=== PATIENT | female | born 1995 | race Two or more races ===

== ENCOUNTER 2020-01-16 09:01 | Outpatient (CLI) | payer SELFPAY | END 2020-01-16 09:02 | disposition home or self-care (01) | LOC: LAB 09:01 | DX: Z02.81 Encounter for paternity testing (principal) ==

== ENCOUNTER 2020-11-23 17:09 | Emergency (ER) | payer OTHER ==
--- OUTSIDE RECORDS SUMMARY | 2020-11-23 17:12 | EXTERNAL MEDICAL SUMMARY RPT | Continuity of Care Document ---
:1995 Demographics Phone Unavailable Preferred Language Hungarian Marital Status Unknown Evangelical Affiliation Unknown Race Unknown Ethnic Group Unknown Author Organization [place] Address [address] [place] [address] Phone Care Team Providers Name Role Phone Miscellaneous, Doctor Unavailable Unavailable Allergies Encounters Medications Problems date description facility [id number] Encounter for test, result [facility] [id number] Amenorrhea, unspecified [facility] [id number] Encounter for test, result [facility] [id number] [facility], [facility] [id number] Acute pharyngitis, unspecified [facility] Procedures date description facility [id number] [facility] Results Vital Signs date measurement value source 20201013 weight_standard 86.18 lb [id number] weight_metric 39.09 kg 20201013 temperature_standard 97.6 F 20201013 temperature_metric 36.44 C 20201013 respiration_rate 16 /min 20201013 height_standard 64 in [id number] height_metric 162.56 cm [id number] heart_rate 103 /min [id number] BP_systolic 146 mm[Hg] 92326176 BP_diastolic 104 mm[Hg] [id number] BMI 32.5 kg/m2
--- OUTSIDE RECORDS SUMMARY | 2020-11-23 17:44 | EXTERNAL MEDICAL SUMMARY RPT | Continuity of Care Document ---
:1995 Demographics Phone Unavailable Preferred Language Polish Marital Status Unknown Baptism Affiliation Unknown Race Unknown Ethnic Group Unknown Author Organization [place] Address [address] [place] [address] Phone Care Team Providers Name Role Phone Miscellaneous, Doctor Unavailable Unavailable Allergies Encounters Medications Problems date description facility [id number] Encounter for test, result [facility] [id number] Amenorrhea, unspecified [facility] [id number] Encounter for test, result [facility] [id number] [facility]hea, unspecified [facility] [id number] Acute pharyngitis, unspecified [facility] Procedures date description facility [id number] [facility] Results Vital Signs date measurement value source 20201013 weight_standard 86.18 lb [id number] weight_metric 39.09 kg 20201013 temperature_standard 97.6 F 20201013 temperature_metric 36.44 C 20201013 respiration_rate 16 /min 20201013 height_standard 64 in [id number] height_metric 162.56 cm [id number] heart_rate 103 /min 17486214 BP_systolic 146 mm[Hg] 94281457 BP_diastolic 104 mm[Hg] [id number] BMI 32.5 kg/m2
[2020-11-23] MEDS ORDERED: LIDOCAINE 1% 2 ML VIAL MC ONE (18:01)
[2020-11-23] MEDS ORDERED: cefTRIAXone 1 GM VIAL IM STA (18:01)
--- NOTE | 2020-11-23 18:05 | ED Physician Documentation ---
History of Present Illness - Stated complaint Stated Complaint: BITE W/ RED LINE GOING UP - Chief complaint Chief Complaint: General - History obtained from History obtained from: Patient - History of Present Illness Timing: Today Pain level max: 0 Pain level now: 0 - Additonal information Additional information: 24-year-old female states that she has multiple bug bites to her arms and legs. She states the one on her left forearm has turned red, swollen and is starting to have a streak going up her left arm. Nothing makes it better or worse. No fevers. No chills. Describes it as itchy. Denies any possibility of . Not breast-feeding. 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 - Present Medications Home Medications: Ambulatory Orders Medication Instructions Recorded Confirmed Desog-E.estradiol/E.estradiol 1 tab ORAL DAILY 11/23/20 11/23/20 [Desogestr-Eth Estrad Eth Estra] Dextroamphetamine/Amphetamine 10 mg ORAL BID 11/23/20 11/23/20 [Adderall 10 mg Tablet] Sulfamethox/Trimeth 800/160 1 each PO BID #14 tablet 11/23/20 [Bactrim Ds 800/160] cephALEXin [Keflex] 500 mg PO Q6H #28 cap 11/23/20 - Allergies Allergies/Adverse Reactions: Allergies Allergy/AdvReac Type Severity Reaction Status Date / Time No Known Drug Allergies Allergy Verified 11/23/20 17:24 - Social History Does the pt smoke?: No Smoking Status: Former smoker Does the pt drink ETOH?: Yes Does the pt have substance abuse?: No - Immunizations Immunizations are current?: Yes PD ED PE NORMAL - Vitals Vital signs reviewed: Yes - General General: Alert and oriented X 3, No acute distress - HEENT HEENT: Moist mucous membranes - Neck Neck: Supple, no meningeal sign - Derm Derm: Warm and dry - Extremities Extremities: Other (L arm - Small erythematous area to the mid forearm, volar aspect, there is a small erythematous streak going up above the elbow to the mid bicep. No crepitus.) - Neuro Neuro: Alert and oriented X 3 - Psych Psych: Normal mood, Normal affect Results - Vitals Vitals: Vital Signs - 24 hr 11/23/20 11/23/20 17:25 18:41 Temperature 37.1 C 37 C Heart Rate 84 76 Respiratory 16 16 Rate Blood Pressure 157/102 H 134/90 H O2 Saturation 99 99 Oxygen O2 Source Room air PD MEDICAL DECISION MAKING - ED course Complexity details: considered differential, d/w patient ED course: Patient with what appears to be cellulitis of the left forearm extending up the left arm. Given Rocephin. Will place on oral antibiotics for home. If she fails to improve in the next 24 hours, she will return for evaluation. No fevers. No sepsis. Patient counseled regarding signs and symptoms for which I believe and urgent re-evaluation would be necessary. Patient with good understanding of and agreement to plan and is comfortable going home at this time This document was made in part using voice recognition software. While efforts are made to proofread this document, sound alike and grammatical errors may occur. Departure - Departure Disposition: 01 Home, Self Care Clinical Impression: Cellulitis Qualifiers: Site of cellulitis: extremity Site of cellulitis of extremity: upper extremity Laterality: left Qualified Code(s): L03.114 - Cellulitis of left upper limb Condition: Good Instructions: ED Infec Skin Cellulitis Follow-Up: LICHA JOSE [Primary Care Provider] - Within 3 Days Prescriptions: Sulfamethox/Trimeth 800/160 [Bactrim Ds 800/160] 1 each PO BID #14 tablet cephALEXin [Keflex] 500 mg PO Q6H #28 cap Comments: Take all antibiotics until gone. Follow-up with your doctor for further care. Return if you worsen. This should start to improve in the next 24 hours, if you develop fevers or the redness is continuing to extend, you need to return to the emergency department. Discharge Date/Time: 11/23/20 18:43
[2020-11-23 18:42] VITALS: BP 134/90
== END 2020-11-23 18:43 | disposition home or self-care (01) ==
LOC: ED 17:09
DX: L03.114 Cellulitis of left upper limb (principal); S50.862A Insect bite (nonvenomous) of left forearm, initial encounter; W57.XXXA Bitten or stung by nonvenomous insect and other nonvenomous arthropods, initial encounter; Z87.891 Personal history of nicotine dependence
CPT/HCPCS: 99283; 99284

== ENCOUNTER 2020-11-26 14:19 | Emergency (ER) | payer OTHER ==
--- OUTSIDE RECORDS SUMMARY | 2020-11-26 14:23 | EXTERNAL MEDICAL SUMMARY RPT | Continuity of Care Document ---
:1995 Demographics Phone Unavailable Preferred Language Nigerian Marital Status Unknown Anglican Affiliation Unknown Race Unknown Ethnic Group Unknown Author Organization [place] Address [address] [place] [address] Phone Care Team Providers Name Role Phone Miscellaneous, Doctor Unavailable Unavailable Allergies Encounters Medications Problems date description facility [id number] Encounter for test, result [facility] [id number] Amenorrhea, unspecified [facility] [id number] Encounter for test, result [facility] [id number] [facility]orrhea, unspecified [facility] [id number] Acute pharyngitis, unspecified [facility] Procedures date description facility [id number] [facility] Results Vital Signs date measurement value source 20201013 weight_standard 86.18 lb [id number] weight_metric 39.09 kg 20201013 temperature_standard 97.6 F 20201013 temperature_metric 36.44 C 20201013 respiration_rate 16 /min 20201013 height_standard 64 in [id number] height_metric 162.56 cm [id number] heart_rate 103 /min 63102053 BP_systolic 146 mm[Hg] 31488627 BP_diastolic 104 mm[Hg] [id number] BMI 32.5 kg/m2
--- OUTSIDE RECORDS SUMMARY | 2020-11-26 14:27 | EXTERNAL MEDICAL SUMMARY RPT | Continuity of Care Document ---
:1995 Demographics Phone Unavailable Preferred Language Estonian Marital Status Unknown Amish Affiliation Unknown Race Unknown Ethnic Group Unknown Author Organization [place] Address [address] [place] [address] Phone Care Team Providers Name Role Phone Miscellaneous, Doctor Unavailable Unavailable Allergies Encounters Medications Problems date description facility [id number] Encounter for test, result [facility] [id number] Amenorrhea, unspecified [facility] [id number] Encounter for test, result [facility] [id number] Amenorrhea, unspecified [facility] [id number] Acute pharyngitis, unspecified [facility] Procedures date description facility [id number] [facility] Results Vital Signs date measurement value source 20201013 weight_standard 86.18 lb [id number] weight_metric 39.09 kg 20201013 temperature_standard 97.6 F 20201013 temperature_metric 36.44 C 20201013 respiration_rate 16 /min 20201013 height_standard 64 in [id number] height_metric 162.56 cm [id number] heart_rate 103 /min 32041527 BP_systolic 146 mm[Hg] 63908313 BP_diastolic 104 mm[Hg] 97178840 BMI 32.5 kg/m2
[2020-11-26] MEDS ORDERED: diphenhydrAMINE 25 MG CAPSULE PO STA (14:55)
[2020-11-26] MEDS ORDERED: DEXAMETHASONE 10 MG/ML VIAL PO STA (14:55)
[2020-11-26] MEDS ORDERED: CHERRY SYRUP 10 ML UDC PO ONE (14:55)
--- NOTE | 2020-11-26 14:56 | ED Physician Documentation ---
History of Present Illness - Stated complaint Stated Complaint: RASH ON BODY - Chief complaint Chief Complaint: General - History obtained from History obtained from: Patient - Additonal information Additional information: 24-year-old woman with allergy to yecenia and dogs presents with rash Not improving with Keflex. Patient states that she had a yecenia exposure on Monday and also was trying on a bench new clothes at a store and then on Monday she developed a rash to her left forearm. She came into the emergency department was prescribed Keflex for cellulitis which she has been taking, but now the rash is itching and spreading down the forearm. She also has pruritic rash to bilateral Flexural surfaces of the lower extremity. Incidentally she was bit by a child in the course of work today but skin did not break. 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 - Present Medications Home Medications: Ambulatory Orders Medication Instructions Recorded Confirmed Desog-E.estradiol/E.estradiol 1 tab ORAL DAILY 11/23/20 11/23/20 [Desogestr-Eth Estrad Eth Estra] Dextroamphetamine/Amphetamine 10 mg ORAL BID 11/23/20 11/23/20 [Adderall 10 mg Tablet] Sulfamethox/Trimeth 800/160 1 each PO BID #14 tablet 11/23/20 [Bactrim Ds 800/160] cephALEXin [Keflex] 500 mg PO Q6H #28 cap 11/23/20 - Allergies Allergies/Adverse Reactions: Allergies Allergy/AdvReac Type Severity Reaction Status Date / Time No Known Drug Allergies Allergy Verified 11/26/20 14:42 - Social History Does the pt smoke?: No Smoking Status: Never smoker Does the pt drink ETOH?: Yes Does the pt have substance abuse?: No - Immunizations Immunizations are current?: Yes - POLST Patient has POLST: No PD ED PE NORMAL - Vitals Vital signs reviewed: Yes - General General: Alert and oriented X 3, No acute distress, Well developed/nourished - HEENT HEENT: Atraumatic, PERRL, EOMI - Derm Derm: Normal color, Warm and dry, Other (blanching erythematous Rash to left forearm and bilateral flexural creases of the lower extremity behind the knee.) - Neuro Neuro: Alert and oriented X 3 - Psych Psych: Normal mood, Normal affect Results - Vitals Vitals: Vital Signs - 24 hr 11/26/20 11/26/20 14:38 15:14 Temperature 36.7 C Heart Rate 90 84 Respiratory 15 12 Rate Blood Pressure 138/94 H 136/82 H O2 Saturation 100 100 Oxygen O2 Source Room air PD MEDICAL DECISION MAKING - ED course ED course: 24-year-old woman presents with persistent rash status post multiple days of Keflex. I advised her to continue her Keflex just in case it is a cellulitis, however this looks like an allergic reaction and given her exposure to mangoes this is consistent with clinical picture. Advised Benadryl as needed and hydrocortisone cream. Strict return precautions given. Departure - Departure Disposition: 01 Home, Self Care Clinical Impression: Allergic reaction Condition: Good Instructions: Rash Skin Self Care Comments: You are seen in the emergency department for a rash that appears to be allergic in origin. Take Benadryl 50 mg as needed every 6 hours for itching. Continue to use hydrocortisone cream. Follow-up with your primary doctor for referral to allergy and immunology. Return to the emergency department if you experience fevers, any new or worsening symptoms or have other concerns. Please complete your antibiotics as prescribed. Discharge Date/Time: 11/26/20 15:15
[2020-11-26 15:15] VITALS: BP 136/82
== END 2020-11-26 15:15 | disposition home or self-care (01) ==
LOC: ED 14:19
DX: T78.40XA Allergy, unspecified, initial encounter (principal)
CPT/HCPCS: 99282; 99284; A9270

== ENCOUNTER 2022-10-17 12:15 | Emergency (ER) | payer OTHER ==
--- NOTE | 2022-10-17 12:28 | ED Physician Documentation ---
PD HPI ABD PAIN - Stated complaint Stated Complaint: ABD PX,NAUSEA - Chief complaint Chief Complaint: Abd Pain - History obtained from History obtained from: Patient, Family (spouse) - History of Present Illness Timing - onset: Today (Onset earlier this morning of initially right lower quadrant to mid abdominal crampy pain that is increased over the last 6 or 7 hours. Predominantly right lower quadrant. Associated with nausea and diarrhea of soft stool several times. No vomiting. No fever.) Timing - duration: Hours Timing - details: Gradual onset, Still present (increasing) Quality: Cramping, Aching, Pain Location: Periumbilical, RLQ Radiation: Lower back. No: Right flank Improved by: Laying still, Position (sitting up) Worsened by: Moving, Position, Palpation. No: Breathing Associated symptoms: Nausea, Diarrhea. No: Fever, Vomiting, Constipation Similar symptoms before: Has not had sx before Recently seen: Clinic (IUD placed 2 months ago with long cramping the first 3 weeks, then just finishing recent menses.) Review of Systems Constitutional: reports: Myalgias. denies: Fever Nose: denies: Rhinorrhea / runny nose, Congestion Throat: denies: Sore throat Respiratory: denies: Cough GI: reports: Abdominal Pain, Nausea, Diarrhea (several soft stools this morning.). 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 - Present Medications Home Medications: Ambulatory Orders Medication Instructions Recorded Confirmed Desog-E.estradiol/E.estradiol 1 tab ORAL DAILY 11/23/20 11/23/20 [Desogestr-Eth Estrad Eth Estra] Dextroamphetamine/Amphetamine 10 mg ORAL BID 11/23/20 11/23/20 [Adderall 10 mg Tablet] Sulfamethox/Trimeth 800/160 1 each PO BID #14 tablet 11/23/20 [Bactrim Ds 800/160] cephALEXin [Keflex] 500 mg PO Q6H #28 cap 11/23/20 HYDROcod/ACETAM 5/325 [[place] 5/325] 1 ea PO Q6H PRN #112 tablet 10/17/22 Naproxen 250 mg PO TID PRN 7 Days #15 tablet 10/17/22 Ondansetron Odt [Zofran] 4 mg TL Q6H PRN #10 tablet 10/17/22 - Allergies Allergies/Adverse Reactions: Allergies Allergy/AdvReac Type Severity Reaction Status Date / Time No Known Drug Allergies Allergy Verified 10/17/22 12:23 - Social History Does the pt smoke?: No Smoking Status: Never smoker Does the pt drink ETOH?: Yes Does the pt have substance abuse?: No - Immunizations Immunizations are current?: Yes - POLST Patient has POLST: No PD ED PE NORMAL - Vitals Vital signs reviewed: Yes - General General: Alert and oriented X 3, Well developed/nourished - Neck Neck: Supple, no meningeal sign, No adenopathy - Cardiac Cardiac: RRR, No murmur - Respiratory Respiratory: Clear bilaterally - Abdomen Abdomen: Normal bowel sounds, Soft, Non distended, No organomegaly, Other (tender RLQ with local guarding and percussion tenderness. No referred tenderness from rest of abd. Pain with right leg lift. ) - Female Female : Deferred - Rectal Rectal: Deferred - Back Back: No CVA TTP - Derm Derm: Normal color, Warm and dry Results - Vitals Vitals: Vital Signs - 24 hr 10/17/22 10/17/22 10/17/22 12:20 13:30 14:00 Temperature 36.0 C L Heart Rate 91 84 77 Respiratory 20 16 16 Rate Blood Pressure 157/110 H 144/100 H 151/113 H O2 Saturation 98 99 100 10/17/22 15:55 Temperature Heart Rate 74 Respiratory 16 Rate Blood Pressure 146/99 H O2 Saturation 100 Oxygen O2 Source Room air - Labs Labs: Laboratory Tests 10/17/22 10/17/22 10/17/22 12:40 13:00 13:00 WBC 5.3 RBC 5.08 Hgb 15.8 Hct 47.2 H MCV 92.9 MCH 31.1 H MCHC 33.5 RDW 12.9 Plt Count 336 MPV 8.5 Neut # (Auto) 4.2 Lymph # (Auto) 0.7 L [place] # (Auto) 0.3 Eos # (Auto) 0.1 Baso # (Auto) 0.0 Absolute Nucleated RBC 0.00 Nucleated RBC % 0.0 Sodium 137 Potassium 3.3 L Chloride 103 Carbon Dioxide 24 Anion Gap 10.0 BUN 10 Creatinine 0.5 Estimated GFR (MDRD) 148 Glucose 112 H Calcium 9.2 Total Bilirubin 0.6 AST 25 ALT 25 Alkaline Phosphatase 76 Total Protein 7.9 Albumin 4.7 Globulin 3.2 Albumin/Globulin Ratio 1.5 Lipase 31 Urine Color YELLOW Urine Clarity CLEAR Urine pH 6.0 Ur Specific [facility] 1.020 Urine Protein NEGATIVE Urine Glucose (UA) 100 H Urine Ketones NEGATIVE Urine Occult Blood SMALL H Urine Nitrite NEGATIVE Urine Bilirubin NEGATIVE Urine Urobilinogen 0.2 (NORMAL) Ur Leukocyte Esterase NEGATIVE Urine RBC 0-5 Urine WBC 0-3 Ur Squamous Epith Cells FEW Squamous Urine Bacteria Few Ur Microscopic Review INDICATED Urine Culture Comments NOT INDICATED Urine HCG, Qual NEGATIVE - Rads (name of study) abd/pelvic CT Relevant Findings:: Prelim report reviewed (appendix not visualized. No secondary finding such as fat stranding nor inflammation. incidental small right ovarian cyst. ), See rad report PD Medical Decision Making - ED course Complexity details: reviewed results (appendix not visualized. No other acute findings. ), re-evaluated patient (She has not had any urinary symptoms. Denies any unusual vaginal bleeding. Recent menstrual period that was normal. Has GI symptoms with right lower quadrant pain and most concerning for acute local colitis or appendicitis. We will get CT scan over ultrasound. Still with AP after first meds.), considered differential (Onset of nausea with some soft stools/mild diarrhea in conjunction with right lower quadrant pain of gradual onset and steady worsening. Symptoms now 6 to 8 hours and increasing.), d/w patient Reviewed Lab Results: normal WBC of 5, less suggestive of acute severe infection. However, does not exclude appendicitis, and she still had focal RLQ tender with guarding on recheck after initial labs/meds. ED course: concern for appendicitis vs viral GE or other cause. Labs were okay with normal WBC. Negative UA for infection. HCG negative. Given IV fluids and toradol/zofran, with persisting abd tenderness. To get CT abdomen shared decision with patient/spouse. Departure - Departure Disposition: 01 Home, Self Care Clinical Impression: Nausea Abdominal pain Qualifiers: Abdominal location: right lower quadrant Qualified Code(s): R10.31 - Right lower quadrant pain Condition: Stable Record reviewed to determine appropriate education?: Yes Instructions: ED Abdominal Pain Female Non-Specific Abdominal Pain, ED Abdominal Pain Appendx Poss Follow-Up: MOLLY DUARTE MD [Primary Care Provider] - Prescriptions: Naproxen 250 mg PO TID PRN 7 Days #15 tablet PRN Reason: Pain 1-4 HYDROcod/ACETAM 5/325 [[place] 5/325] 1 ea PO Q6H PRN #112 tablet PRN Reason: Pain Ondansetron Odt [Zofran] 4 mg TL Q6H PRN #10 tablet PRN Reason: Nausea / Vomiting Comments: Your urine test is without any signs of infection. Your blood test a normal white count and basic electrolytes etc. Your CT scan does not visualize the appendix but there are no signs of inflammation or fluid in the area. This makes the possibility of appendicitis much lower but not excluded. At this point we will treat it as a viral type illness or inflammation of the intestine. As such I would anticipate it to last a day or 2 at most. I would treat with medication for nausea and inflammation and pain. Frequent fluids and soft foods and bland diet for a day or 2. Medications as needed. Follow-up with your primary or return to the ER if not resolved within 1 to 2 days and return sooner if you develop fevers, persistent vomiting or worse pain despite medication, bloody stool, other concerns. I sent your prescriptions to [facility] in [place]. Discharge Date/Time: 10/17/22 15:55
[2022-10-17] MEDS ORDERED: HYDROmorphone 0.5 MG/0.5 ML SYRINGE IVP STA (12:49)
[2022-10-17] MEDS ORDERED: SODIUM CHLORIDE 0.9% 1,000 ML IV STA (12:49)
[2022-10-17] MEDS ORDERED: KETOROLAC 15 MG/ML VIAL IVP STA (12:49)
[2022-10-17] MEDS ORDERED: ONDANSETRON 4 MG/2 ML VIAL IVP STA (12:49)
--- OUTSIDE RECORDS SUMMARY | 2022-10-17 13:09 | EXTERNAL MEDICAL SUMMARY RPT | Continuity of Care Document ---
:1995 Author Organization [facility] Address [address] [place] [address] Phone Care Team Providers Name Role Phone George Mariscal Unavailable Unavailable Allergies No information. Encounters No information. Functional Status No information. Immunizations No information. Medications date description facility 2022-08-12 00:00 Dextroamphetamine-Amphetamine [facility] ospital Problems date description facility 2022-07-25 09:24 Nipple discharge [facility] 2022-07-25 09:24 Excessive and frequent menstruation [facility] regular cycle 2022-07-25 09:24 Family history of malignant neoplasm of [facility] 2022-07-25 17:07 Nipple discharge [facility] 2022-07-25 17:07 Excessive and frequent menstruation [facility] regular cycle 2022-07-25 17:07 Family history of malignant neoplasm of [facility] 2022-08-19 11:33 Encounter for insertion of [facility] contraceptive device 2022-08-19 11:33 Presence of (intrauterine) contraceptiv e device [facility] Procedures date description facility 2022-07-25 00:00 Diagnostic mammography of both [facility] 2022-07-25 00:00 breast [facility] l Results/Labs test date author facility value unit interpret ation Result panel 1 (unknown) (no date) (unknown) [facility] Result panel 2 (unknown) (no date) (unknown) [facility]) Result panel 3 (unknown) (no date) (unknown) [facility]) Result panel 4 (unknown) (no (unknown) (unknown) (no value) (units (unk nown) date) unknown) (unknown) (no (unknown) (unknown) 07/25/22 (units (unkno wn) date) unknown) (unknown) (no (unknown) (unknown) [address] [place] [address] (units (unknown) date) unknown) (unknown) (no (unknown) (unknown) 4900 (units (unkno wn) date) unknown) (unknown) (no (unknown) (unknown) Accession Number: (units (unknown) date) [id number] unknown) (unknown) (no (unknown) (unknown) Age/Sex: 26 / F (units (unknown) date) Date of Service: unknown) (unknown) (no (unknown) (unknown) [place], [place] (units ( unknown) date) [address] unknown) (unknown) (no (unknown) (unknown) CLINICAL: Nipple (units (unknown) date) discharge, right unknown) breast, not bloody. (unknown) (no (unknown) (unknown) Clinical (units (unkno wn) date) evaluation is unknown) recommended. This was discussed with the patient. (unknown) (no (unknown) (unknown) : 1995 (units (unknown) date) Acct:[id number] unknown) (unknown) (no (unknown) (unknown) Electronically (units (unknown) date) Signed By: Tristan millan) Tab Munson (unknown) (no (unknown) (unknown) IMPRESSION: (units (un known) date) NEGATIVE unknown) (unknown) (no (unknown) (unknown) [facility] (units (unknown) date) unknown) (unknown) (no (unknown) (unknown) Loc: [place] (units (unkno wn) date) unknown) (unknown) (no (unknown) (unknown) No etiology or (units (unknown) date) target amenable to unknown) biopsy is found on today's mammogram or (unknown) (no (unknown) (unknown) No prior exams (units (unknown) date) were available for unknown) comparison. (unknown) (no (unknown) (unknown) No significant (units (unknown) date) abnormalities were unknown) seen sonographically in the right breast. (unknown) (no (unknown) (unknown) Ordering (units (unkno wn) date) Provider: unknown) George Mariscal MD (unknown) (no (unknown) (unknown) Patient: (units (unkno wn) date) Darleen Peck MR#: unknown) [id number] (unknown) (no (unknown) (unknown) Please note, with (units (unknown) date) patient's elevated unknown) lifetime risk and family history, (unknown) (no (unknown) (unknown) Procedure: [place] (units ( unknown) date) breast RT limited unknown) (unknown) (no (unknown) (unknown) Real-time (units (unkn own) date) ultrasound of the unknown) right breast was performed. Cazares scale images of (unknown) (no (unknown) (unknown) Signed (units (unkno wn) date) unknown) (unknown) (no (unknown) (unknown) There is no (units (un known) date) abnormality seen unknown) in the right breast to correspond with the (unknown) (no (unknown) (unknown) There is no (units (un known) date) sonographic unknown) evidence of malignancy. (unknown) (no (unknown) (unknown) This exam was (units ( unknown) date) interpreted at unknown) Station ID: [id number]. (unknown) (no (unknown) (unknown) ULTRASOUND OF (units ( unknown) date) RIGHT BREAST: unknown) 07/25/2022 (unknown) (no (unknown) (unknown) Ultrasound (units (unk nown) date) BI-RADS: 1 unknown) Negative (unknown) (no (unknown) (unknown) Ultrasound Report (units (unknown) date) unknown) (unknown) (no (unknown) (unknown) breast MRI is (units ( unknown) date) reasonable. unknown) (unknown) (no (unknown) (unknown) clinical (units (unkno wn) date) unknown) (unknown) (no (unknown) (unknown) concern for (units (un known) date) discharge persists unknown) and no alternative cause is found, further (unknown) (no (unknown) (unknown) discharge from (units (unknown) date) unknown) (unknown) (no (unknown) (unknown) lc/:07/25/2022 (units ( unknown) date) 10:49:58 unknown) (unknown) (no (unknown) (unknown) letter sent: (units (u nknown) date) Clinical unknown) Evaluation (unknown) (no (unknown) (unknown) mammogram and (units ( unknown) date) possibly MRI can unknown) be considered before age 40. In addition, if (unknown) (no (unknown) (unknown) real-time (units (unkn own) date) examination were unknown) reviewed. (unknown) (no (unknown) (unknown) screening (units (unkn own) date) unknown) (unknown) (no (unknown) (unknown) the nipple. (units (un known) date) unknown) (unknown) (no (unknown) (unknown) the (units (unkno wn) date) unknown) (unknown) (no (unknown) (unknown) ultrasound. (units (un known) date) unknown) (unknown) (no (unknown) (unknown) workup with (units (un known) date) unknown) Result panel 5 (unknown) (no (unknown) (unknown) (no value) (units (unk nown) date) unknown) (unknown) (no (unknown) (unknown) 'Lifetime risk to (units (unknown) date) develop breast unknown) cancer' is 20% or higher. (unknown) (no (unknown) (unknown) (category c / (units ( unknown) date) unknown) (unknown) (no (unknown) (unknown) 07/25/22 (units (unkno wn) date) unknown) (unknown) (no (unknown) (unknown) [address] [place] [address] (units (unknown) date) unknown) (unknown) (no (unknown) (unknown) 15% of breast (units ( unknown) date) malignancies will unknown) not be visualized mammographically. In the (unknown) (no (unknown) (unknown) 27.7% and her 10 (units (unknown) date) year risk is 0.9%. unknown) If a patient has an elevated risk, a more (unknown) (no (unknown) (unknown) 4900 (units (unkno wn) date) unknown) (unknown) (no (unknown) (unknown) 51-75% glandular (units (unknown) date) tissue). unknown) (unknown) (no (unknown) (unknown) ACR BI-RADS (units (un known) date) Category 0: unknown) Incomplete [id number] (unknown) (no (unknown) (unknown) Accession Number: (units (unknown) date) [id number] unknown) (unknown) (no (unknown) (unknown) Age/Sex: 26 / F (units (unknown) date) Date of Service: unknown) (unknown) (no (unknown) (unknown) [place], [place] (units ( unknown) date) [id number] unknown) (unknown) (no (unknown) (unknown) Approximately (units ( unknown) date) unknown) (unknown) (no (unknown) (unknown) BILATERAL DIGITAL (units (unknown) date) DIAGNOSTIC unknown) MAMMOGRAM 3D/2D: 07/25/2022 (unknown) (no (unknown) (unknown) Based on (units (unkno wn) date) Tyrer-Cuzick model unknown) (a risk assessment model), the patient's lifetime (unknown) (no (unknown) (unknown) Both breasts are (units (unknown) date) heterogeneously unknown) dense, which may obscure small masses (unknown) (no (unknown) (unknown) CLINICAL: (units (unkn own) date) Baseline exam. unknown) Family history of breast cancer. Right breast (unknown) (no (unknown) (unknown) : 1995 (units (unknown) date) Acct:[id number] unknown) (unknown) (no (unknown) (unknown) Electronically (units (unknown) date) Signed By: Tristan unknown) Tab Munson (unknown) (no (unknown) (unknown) IMPRESSION: (units (un known) date) INCOMPLETE: NEEDS unknown) ADDITIONAL IMAGING EVALUATION (unknown) (no (unknown) (unknown) [facility] (units (unknown) date) unknown) (unknown) (no (unknown) (unknown) Loc: [place] (units (unkno wn) date) unknown) (unknown) (no (unknown) (unknown) Mammography (units (un known) date) Report unknown) (unknown) (no (unknown) (unknown) NOTE: For (units (unkn own) date) mammograms, a unknown) report in lay terms will be sent to the patient. (unknown) (no (unknown) (unknown) No prior exams (units (unknown) date) were available for unknown) comparison. (unknown) (no (unknown) (unknown) No significant (units (unknown) date) masses, unknown) calcifications, or other findings are seen in either (unknown) (no (unknown) (unknown) Ordering (units (unkno wn) date) Provider: unknown) George Mariscal MD (unknown) (no (unknown) (unknown) Patient: (units (unkno wn) date) Darleen Peck MR#: unknown) [id number] (unknown) (no (unknown) (unknown) Procedure: MM (units ( unknown) date) diagnostic mammo unknown) BI (unknown) (no (unknown) (unknown) Signed (units (unkno wn) date) unknown) (unknown) (no (unknown) (unknown) [employer] [place] (units (u nknown) date) Cancer Society, unknown) [employer], and NCCN Guidelines (unknown) (no (unknown) (unknown) There is no (units (un known) date) abnormality seen unknown) in the right breast to correspond with the (unknown) (no (unknown) (unknown) This exam was (units ( unknown) date) interpreted at unknown) Station ID: [id number]. (unknown) (no (unknown) (unknown) a palpable breast (units (unknown) date) mass, a negative unknown) mammogram must not discourage biopsy of a (unknown) (no (unknown) (unknown) advise (units (unkno wn) date) unknown) (unknown) (no (unknown) (unknown) breast. (units (unkno wn) date) unknown) (unknown) (no (unknown) (unknown) clinically (units (unk nown) date) unknown) (unknown) (no (unknown) (unknown) comprehensive (units ( unknown) date) evaluation should unknown) be considered and/or a referral to a genetic (unknown) (no (unknown) (unknown) counselor. (units (unk nown) date) unknown) (unknown) (no (unknown) (unknown) discharge from (units (unknown) date) unknown) (unknown) (no (unknown) (unknown) discharge. (units (unk nown) date) unknown) (unknown) (no (unknown) (unknown) lc/:07/25/2022 (units ( unknown) date) 10:46:29 unknown) (unknown) (no (unknown) (unknown) management of (units ( unknown) date) unknown) (unknown) (no (unknown) (unknown) patients whose (units (unknown) date) unknown) (unknown) (no (unknown) (unknown) risk is (units (unkno wn) date) unknown) (unknown) (no (unknown) (unknown) suspicious (units (unk nown) date) lesion. unknown) (unknown) (no (unknown) (unknown) the consideration (units (unknown) date) of Breast MRI as unknown) an adjunct to screening mammography in (unknown) (no (unknown) (unknown) the nipple, (units (un known) date) however, unknown) ultrasound is recommended. Result panel 6 (unknown) (no date) (unknown) (unknown) 6.7 ng/ml (unkn own) Result panel 7 (unknown) (no date) (unknown) (unknown) 4.72 miu/ml (unkn own) (unknown) (no date) (unknown) (unknown) 4.72 miu/ml (unkn own) (unknown) (no date) (unknown) (unknown) 6.40 miu/ml (unkn own) (unknown) (no date) (unknown) (unknown) 6.40 miu/ml (unkn own) Result panel 8 (unknown) (no (unknown) (unknown) (no value) (units (unk nown) date) unknown) (unknown) (no (unknown) (unknown) 08/19/22 (units (unkno wn) date) unknown) (unknown) (no (unknown) (unknown) 900 (units (unkno wn) date) unknown) (unknown) (no (unknown) (unknown) ADHD (units (unkno wn) date) unknown) (unknown) (no (unknown) (unknown) (units (unkno wn) date) unknown) (unknown) (no (unknown) (unknown) Age/Sex: 26 / F (units (unknown) date) Date of Service: unknown) (unknown) (no (unknown) (unknown) Alcohol abuse (units ( unknown) date) unknown) (unknown) (no (unknown) (unknown) Allergies (units (unkn own) date) unknown) (unknown) (no (unknown) (unknown) [place], [place] (units ( unknown) date) [address] unknown) (unknown) (no (unknown) (unknown) Anaphylaxis (units (un known) date) unknown) (unknown) (no (unknown) (unknown) Anesthesia (units (unk nown) date) unknown) (unknown) (no (unknown) (unknown) Anxiety (units (unkno wn) date) unknown) (unknown) (no (unknown) (unknown) Assessment + (units (u nknown) date) Plan unknown) (unknown) (no (unknown) (unknown) Attending Dr: (units ( unknown) date) George Mariscal unknown) (unknown) (no (unknown) (unknown) Breast cancer (units ( unknown) date) unknown) (unknown) (no (unknown) (unknown) Brother (units (unkno wn) date) Hypertension unknown) (unknown) (no (unknown) (unknown) Cancer (units (unkno wn) date) unknown) (unknown) (no (unknown) (unknown) Chlamydia (units (unkn own) date) unknown) (unknown) (no (unknown) (unknown) Crohn's disease (units (unknown) date) () unknown) (unknown) (no (unknown) (unknown) : 1995 (units (unknown) date) Acct:[id number] unknown) (unknown) (no (unknown) (unknown) Delivery by (units (un known) date) section unknown) (-05/18/20) (unknown) (no (unknown) (unknown) Depression (units (unk nown) date) unknown) (unknown) (no (unknown) (unknown) Dept at (units (unkno wn) date) . unknown) (unknown) (no (unknown) (unknown) Documented By: (units (unknown) date) George Mariscal unknownColleen MARTINEZ 08/19/22 1135 (unknown) (no (unknown) (unknown) Draft (units (unkno wn) date) unknown) (unknown) (no (unknown) (unknown) Family History (units (unknown) date) (Updated 03/15/21 unknown) @ 14:04 by Christiana Magallon) (unknown) (no (unknown) (unknown) Family Practice (units (unknown) date) Office Visit unknown) (unknown) (no (unknown) (unknown) Family/Other (units (u nknown) date) Mental health unknown) problem (unknown) (no (unknown) (unknown) Father Stroke (units ( unknown) date) unknown) (unknown) (no (unknown) (unknown) [facility] ([facility] unknown) (unknown) (no (unknown) (unknown) GI bleeding (units (un known) date) (-2006) unknown) (unknown) (no (unknown) (unknown) Grandfather (units (un known) date) Family unknown) estrangement (unknown) (no (unknown) (unknown) Grandfather (units (un known) date) Stomach unknown) cancer (unknown) (no (unknown) (unknown) Grandmother (units (un known) date) Stroke unknown) (unknown) (no (unknown) (unknown) Grandmother (units (un known) date) Unknown unknown) whether patient has any health problems (unknown) (no (unknown) (unknown) H/O being (units (unkn own) date) hospitalized unknown) () (unknown) (no (unknown) (unknown) H/O wisdom tooth (units (unknown) date) extraction unknown) () (unknown) (no (unknown) (unknown) Heavy menstrual (units (unknown) date) period unknown) (unknown) (no (unknown) (unknown) History of heart (units (unknown) date) disease unknown) (unknown) (no (unknown) (unknown) History of (units (unk nown) date) miscarriage unknown) (unknown) (no (unknown) (unknown) Hyperlipidemia (units (unknown) date) unknown) (unknown) (no (unknown) (unknown) Hypertension (units (u nknown) date) unknown) (unknown) (no (unknown) (unknown) Intake performed (units (unknown) date) by: Jane Hoff unknown) J (unknown) (no (unknown) (unknown) Intake (units (unkno wn) date) unknown) (unknown) (no (unknown) (unknown) Intake- Clincial (units (unknown) date) Staff unknown) (unknown) (no (unknown) (unknown) Last Menstural (units (unknown) date) Cycle + Details unknown) (unknown) (no (unknown) (unknown) Loc: [facility] (units (unkno wn) date) unknown) (unknown) (no (unknown) (unknown) Medical History (units (unknown) date) (Updated 07/01/22 unknown) @ 17:11 by George Mariscal MD) (unknown) (no (unknown) (unknown) Mental health (units ( unknown) date) problem unknown) (unknown) (no (unknown) (unknown) Miscarriage (units (un known) date) unknown) (unknown) (no (unknown) (unknown) 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 (unknown) (no (unknown) (unknown) Mother Cancer (units ( unknown) date) unknown) (unknown) (no (unknown) (unknown) Orders: (units (unkno wn) date) unknown) (unknown) (no (unknown) (unknown) Other Menstrual (units (unknown) date) Period: Other unknown) (unknown) (no (unknown) (unknown) PFSH (units (unkno wn) date) unknown) (unknown) (no (unknown) (unknown) Patient: (units (unkno wn) date) Darleen Peck MR#: unknown) [id number] (unknown) (no (unknown) (unknown) Reason For Visit (units (unknown) date) unknown) (unknown) (no (unknown) (unknown) Referral (units (unkno wn) date) Community unknown) Resource Z30.430 - Encounter for insertion of intrauterine (unknown) (no (unknown) (unknown) Referrals (units (unkn own) date) unknown) (unknown) (no (unknown) (unknown) S/P dilation and (units (unknown) date) curettage (-2015) unknown) (unknown) (no (unknown) (unknown) Signed By: (units (unk nown) date) unknown) (unknown) (no (unknown) (unknown) Smoking Status: (units (unknown) date) Former smoker unknown) (unknown) (no (unknown) (unknown) Social History (units (unknown) date) unknown) (unknown) (no (unknown) (unknown) Surgical History (units (unknown) date) (Updated 03/15/21 unknown) @ 13:52 by Christiana Magallon) (unknown) (no (unknown) (unknown) This note may (units ( unknown) date) have been all or unknown) partially generated using voice recognition (unknown) (no (unknown) (unknown) Tobacco + (units (unkn own) date) Substance Use unknown) (unknown) (no (unknown) (unknown) Tobacco Status (units (unknown) date) unknown) (unknown) (no (unknown) (unknown) Tobacco: How (units (u nknown) date) many years used: unknown) 1 (unknown) (no (unknown) (unknown) Unknown whether (units (unknown) date) patient has any unknown) health problems (unknown) (no (unknown) (unknown) Visit Reasons: (units (unknown) date) IUD/ Yaritza unknown) InsertionTRICAR E (unknown) (no (unknown) (unknown) alcohol intake: (units (unknown) date) current (2-3 unknown) drinks/ 2 wks ) (unknown) (no (unknown) (unknown) contraceptive (units ( unknown) date) device, Z97.5 - unknown) Presence of (intrauterine) contraceptive device (unknown) (no (unknown) (unknown) current (units (unkno wn) date) occupational unknown) exposures/hazards : No (unknown) (no (unknown) (unknown) education level: (units (unknown) date) college unknown) (unknown) (no (unknown) (unknown) have occurred. (units (unknown) date) If there are any unknown) questions, please contact the Medical Records (unknown) (no (unknown) (unknown) household (units (unkn own) date) members: unknown) significant other (unknown) (no (unknown) (unknown) yecenia Allergy (units ( unknown) date) (Severe, Verified unknown) 03/12/21 10:13) (unknown) (no (unknown) (unknown) marital status: (units (unknown) date) unmarried,living unknown) together (unknown) (no (unknown) (unknown) may occur. (units (unk nown) date) Occasional unknown) wrong-word or 'sound-alike' substitutions may have (unknown) (no (unknown) (unknown) occupational (units (u nknown) date) status: unknown) unemployed (unknown) (no (unknown) (unknown) occurred due to (units (unknown) date) the inherent unknown) limitations of voice recognition software. Please (unknown) (no (unknown) (unknown) pets and (units (unkno wn) date) animals: Yes unknown) (Dog) (unknown) (no (unknown) (unknown) read the note (units ( unknown) date) carefully and unknown) recognize, using context, where these substitutions (unknown) (no (unknown) (unknown) second hand (units (un known) date) exposure: No unknown) (unknown) (no (unknown) (unknown) software. (units (unkn own) date) Although every unknown) effort is made to edit content, district sales representative errors (unknown) (no (unknown) (unknown) special eddie (units ( unknown) date) needs: No unknown) (unknown) (no (unknown) (unknown) substance use (units ( unknown) date) type: does not unknown) use Result panel 9 (unknown) (no (unknown) (unknown) (no value) (units (unk nown) date) unknown) (unknown) (no (unknown) (unknown) 08/19/22 (units (unkno wn) date) unknown) (unknown) (no (unknown) (unknown) 11:37 (units (unkno wn) date) unknown) (unknown) (no (unknown) (unknown) 3RF (units (unkno wn) date) unknown) (unknown) (no (unknown) (unknown) 900 (units (unkno wn) date) unknown) (unknown) (no (unknown) (unknown) ADHD (units (unkno wn) date) unknown) (unknown) (no (unknown) (unknown) (units (unkno wn) date) unknown) (unknown) (no (unknown) (unknown) Age/Sex: 26 / F (units (unknown) date) Date of Service: unknown) (unknown) (no (unknown) (unknown) Alcohol abuse (units ( unknown) date) unknown) (unknown) (no (unknown) (unknown) Allergies (units (unkn own) date) unknown) (unknown) (no (unknown) (unknown) [place], [place] (units ( unknown) date) [address] unknown) (unknown) (no (unknown) (unknown) Anaphylaxis (units (un known) date) unknown) (unknown) (no (unknown) (unknown) Anesthesia (units (unk nown) date) unknown) (unknown) (no (unknown) (unknown) Anxiety (units (unkno wn) date) unknown) (unknown) (no (unknown) (unknown) Assessment + (units (u nknown) date) Plan unknown) (unknown) (no (unknown) (unknown) Attending Dr: (units ( unknown) date) George Mariscal unknown) (unknown) (no (unknown) (unknown) BP 110/74 (units (unkn own) date) unknown) (unknown) (no (unknown) (unknown) Breast cancer (units ( unknown) date) unknown) (unknown) (no (unknown) (unknown) Brother (units (unkno wn) date) Hypertension unknown) (unknown) (no (unknown) (unknown) Cancer (units (unkno wn) date) unknown) (unknown) (no (unknown) (unknown) Chlamydia (units (unkn own) date) unknown) (unknown) (no (unknown) (unknown) Crohn's disease (units (unknown) date) () unknown) (unknown) (no (unknown) (unknown) : 1995 (units (unknown) date) Acct:[id number] unknown) (unknown) (no (unknown) (unknown) Delivery by (units (un known) date) section unknown) (-05/18/20) (unknown) (no (unknown) (unknown) Depression (units (unk nown) date) unknown) (unknown) (no (unknown) (unknown) Dept at (units (unkno wn) date) . unknown) (unknown) (no (unknown) (unknown) Discontinued (units (u nknown) date) Reason: unknown) Provider's Order 15 mg PO BID 60 tabs 0RF (unknown) (no (unknown) (unknown) Discontinued (units (u nknown) date) Reason: unknown) Provider's Order 7.5 mg PO BID 120 tabs 0RF (unknown) (no (unknown) (unknown) Discontinued (units (u nknown) date) Reason: unknown) Provider's Order TAKE 1 TABLET BY MOUTH DAILY 90 tabs (unknown) (no (unknown) (unknown) Discontinued (units (u nknown) date) unknown) (unknown) (no (unknown) (unknown) Documented By: (units (unknown) date) George Mariscal unknownColleen MARTINZE 08/19/22 1135 (unknown) (no (unknown) (unknown) Draft (units (unkno wn) date) unknown) (unknown) (no (unknown) (unknown) Family History (units (unknown) date) (Updated 03/15/21 unknown) @ 14:04 by Christiana Magallon) (unknown) (no (unknown) (unknown) Family Practice (units (unknown) date) Office Visit unknown) (unknown) (no (unknown) (unknown) Family/Other (units (u nknown) date) Mental health unknown) problem (unknown) (no (unknown) (unknown) Father Stroke (units ( unknown) date) unknown) (unknown) (no (unknown) (unknown) [facility]units ([facility] date) [facility] unknown) (unknown) (no (unknown) (unknown) GI bleeding (units (un known) date) (-2006) unknown) (unknown) (no (unknown) (unknown) Grandfather (units (un known) date) Family unknown) estrangement (unknown) (no (unknown) (unknown) Grandfather (units (un known) date) Stomach unknown) cancer (unknown) (no (unknown) (unknown) Grandmother (units (un known) date) Stroke unknown) (unknown) (no (unknown) (unknown) Grandmother (units (un known) date) Unknown unknown) whether patient has any health problems (unknown) (no (unknown) (unknown) H/O being (units (unkn own) date) hospitalized unknown) () (unknown) (no (unknown) (unknown) H/O wisdom tooth (units (unknown) date) extraction unknown) () (unknown) (no (unknown) (unknown) Heavy menstrual (units (unknown) date) period unknown) (unknown) (no (unknown) (unknown) History of heart (units (unknown) date) disease unknown) (unknown) (no (unknown) (unknown) History of (units (unk nown) date) miscarriage unknown) (unknown) (no (unknown) (unknown) Hyperlipidemia (units (unknown) date) unknown) (unknown) (no (unknown) (unknown) Hypertension (units (u nknown) date) unknown) (unknown) (no (unknown) (unknown) Intake performed (units (unknown) date) by: Jane Hoff unknown) J (unknown) (no (unknown) (unknown) Intake (units (unkno wn) date) unknown) (unknown) (no (unknown) (unknown) Intake- Clincial (units (unknown) date) Staff unknown) (unknown) (no (unknown) (unknown) Last Menstural (units (unknown) date) Cycle + Details unknown) (unknown) (no (unknown) (unknown) Loc: [facility] (units (unkno wn) date) unknown) (unknown) (no (unknown) (unknown) Medical History (units (unknown) date) (Updated 07/01/22 unknown) @ 17:11 by George Mariscal MD) (unknown) (no (unknown) (unknown) Medications: (units (u nknown) date) unknown) (unknown) (no (unknown) (unknown) Mental health (units ( unknown) date) problem unknown) (unknown) (no (unknown) (unknown) Miscarriage (units (un known) date) unknown) (unknown) (no (unknown) (unknown) 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 (unknown) (no (unknown) (unknown) Mother Cancer (units ( unknown) date) unknown) (unknown) (no (unknown) (unknown) New (units (unkno wn) date) unknown) (unknown) (no (unknown) (unknown) Orders: (units (unkno wn) date) unknown) (unknown) (no (unknown) (unknown) Other Menstrual (units (unknown) date) Period: Other unknown) (unknown) (no (unknown) (unknown) PFSH (units (unkno wn) date) unknown) (unknown) (no (unknown) (unknown) Patient: (units (unkno wn) date) Darleen Peck MR#: unknown) [id number] (unknown) (no (unknown) (unknown) Pulse 74 (units (unkno wn) date) unknown) (unknown) (no (unknown) (unknown) Pulse Oximetry (units (unknown) date) (%) 99 unknown) (unknown) (no (unknown) (unknown) Reason For Visit (units (unknown) date) unknown) (unknown) (no (unknown) (unknown) Referral (units (unkno wn) date) Community unknown) Resource Z30.430 - Encounter for insertion of intrauterine (unknown) (no (unknown) (unknown) Referrals (units (unkn own) date) unknown) (unknown) (no (unknown) (unknown) S/P dilation and (units (unknown) date) curettage (-2016) unknown) (unknown) (no (unknown) (unknown) Signed By: (units (unk nown) date) unknown) (unknown) (no (unknown) (unknown) Smoking Status: (units (unknown) date) Former smoker unknown) (unknown) (no (unknown) (unknown) Social History (units (unknown) date) unknown) (unknown) (no (unknown) (unknown) Surgical History (units (unknown) date) (Updated 03/15/21 unknown) @ 13:52 by Christiana Magallon) (unknown) (no (unknown) (unknown) This note may (units ( unknown) date) have been all or unknown) partially generated using voice recognition (unknown) (no (unknown) (unknown) Tobacco + (units (unkn own) date) Substance Use unknown) (unknown) (no (unknown) (unknown) Tobacco Status (units (unknown) date) unknown) (unknown) (no (unknown) (unknown) Tobacco: How (units (u nknown) date) many years used: unknown) 1 (unknown) (no (unknown) (unknown) Unknown whether (units (unknown) date) patient has any unknown) health problems (unknown) (no (unknown) (unknown) Visit Reasons: (units (unknown) date) IUD/ Yaritza unknown) InsertionTRICAR E (unknown) (no (unknown) (unknown) Vitals (units (unkno wn) date) unknown) (unknown) (no (unknown) (unknown) Weight 216 lb (units ( unknown) date) unknown) (unknown) (no (unknown) (unknown) administer doses (units (unknown) date) at least 4-6 unknown) hours apart 20 mg PO BID 60 tabs 0RF (unknown) (no (unknown) (unknown) administer doses (units (unknown) date) at least 4-6 unknown) hours apart (unknown) (no (unknown) (unknown) alcohol intake: (units (unknown) date) current (2-3 unknown) drinks/ 2 wks ) (unknown) (no (unknown) (unknown) buspirone 15 mg (units (unknown) date) PO BID 180 tabs unknown) 0RF (unknown) (no (unknown) (unknown) buspirone (units (unkn own) date) unknown) (unknown) (no (unknown) (unknown) contraceptive (units ( unknown) date) device, Z97.5 - unknown) Presence of (intrauterine) contraceptive device (unknown) (no (unknown) (unknown) current (units (unkno wn) date) occupational unknown) exposures/hazards : No (unknown) (no (unknown) (unknown) dextroamphetamin (units (unknown) date) e-amphetamine 15 unknown) mg (Adderall) (unknown) (no (unknown) (unknown) dextroamphetamin (units (unknown) date) e-amphetamine 20 unknown) mg (Adderall) (unknown) (no (unknown) (unknown) education level: (units (unknown) date) college unknown) (unknown) (no (unknown) (unknown) escitalopram (units (u nknown) date) oxalate (Lexapro) unknown) 20 mg PO DAILY 90 tabs 0RF (unknown) (no (unknown) (unknown) escitalopram (units (u nknown) date) oxalate unknown) (unknown) (no (unknown) (unknown) have occurred. (units (unknown) date) If there are any unknown) questions, please contact the Medical Records (unknown) (no (unknown) (unknown) household (units (unkn own) date) members: unknown) significant other (unknown) (no (unknown) (unknown) yecenia Allergy (units ( unknown) date) (Severe, Verified unknown) 03/12/21 10:13) (unknown) (no (unknown) (unknown) marital status: (units (unknown) date) unmarried,living unknown) together (unknown) (no (unknown) (unknown) may occur. (units (unk nown) date) Occasional unknown) wrong-word or 'sound-alike' substitutions may have (unknown) (no (unknown) (unknown) occupational (units (u nknown) date) status: unknown) unemployed (unknown) (no (unknown) (unknown) occurred due to (units (unknown) date) the inherent unknown) limitations of voice recognition software. Please (unknown) (no (unknown) (unknown) pets and (units (unkno wn) date) animals: Yes unknown) (Dog) (unknown) (no (unknown) (unknown) read the note (units ( unknown) date) carefully and unknown) recognize, using context, where these substitutions (unknown) (no (unknown) (unknown) second hand (units (un known) date) exposure: No unknown) (unknown) (no (unknown) (unknown) software. 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: (unknown) (no (unknown) (unknown) (2) Breakthrough (units (unknown) date) bleeding on unknown) control pills: (unknown) (no (unknown) (unknown) (3) ADHD: (units (unkn own) date) unknown) (unknown) (no (unknown) (unknown) (4) Encounter (units ( unknown) date) for intrauterine unknown) device placement: (unknown) (no (unknown) (unknown) 08/19/22 1408 (units ( unknown) date) unknown) (unknown) (no (unknown) (unknown) 08/19/22 (units (unkno wn) date) unknown) (unknown) (no (unknown) (unknown) 11:37 (units (unkno wn) date) unknown) (unknown) (no (unknown) (unknown) 15mg BID for (units (u nknown) date) ADHD but thinks unknown) that it may not be working as well. It has been (unknown) (no (unknown) (unknown) 3RF (units (unkno wn) date) unknown) (unknown) (no (unknown) (unknown) 900 (units (unkno wn) date) unknown) (unknown) (no (unknown) (unknown) ADHD (units (unkno wn) date) unknown) (unknown) (no (unknown) (unknown) (units (unkno wn) date) unknown) (unknown) (no (unknown) (unknown) Adderall. Will (units (unknown) date) see how she does unknown) with these adjustments. We also did place (unknown) (no (unknown) (unknown) Age/Sex: 26 / F (units (unknown) date) Date of Service: unknown) (unknown) (no (unknown) (unknown) Darleen is a 26y F (units ( unknown) date) here to follow-up unknown) on ADHD and anxiety and IUD placement. Patient (unknown) (no (unknown) (unknown) Alcohol abuse (units ( unknown) date) unknown) (unknown) (no (unknown) (unknown) Allergies (units (unkn own) date) unknown) (unknown) (no (unknown) (unknown) [place] (units ( unknown) date) [id number] unknown) (unknown) (no (unknown) (unknown) Anaphylaxis (units (un known) date) unknown) (unknown) (no (unknown) (unknown) Anesthesia (units (unk nown) date) unknown) (unknown) (no (unknown) (unknown) Anxiety (units (unkno wn) date) unknown) (unknown) (no (unknown) (unknown) Assessment + (units (u nknown) date) Plan unknown) (unknown) (no (unknown) (unknown) Attending Dr: (units ( unknown) date) George Mariscal unknown) (unknown) (no (unknown) (unknown) Attention (units (unkn own) date) deficit-hyperacti unknown) vity disorder type: unspecified Qualified (unknown) (no (unknown) (unknown) BP 110/74 (units (unkn own) date) unknown) (unknown) (no (unknown) (unknown) Billing- IUD (units (u nknown) date) Insertion: unknown) Insertion of IUD- [id number] (unknown) (no (unknown) (unknown) Breast cancer (units ( unknown) date) unknown) (unknown) (no (unknown) (unknown) Brother (units (unkno wn) date) Hypertension unknown) (unknown) (no (unknown) (unknown) Cancer (units (unkno wn) date) unknown) (unknown) (no (unknown) (unknown) Cervix cleaned (units (unknown) date) with Betadine: unknown) Yes (with chlorhexadine) (unknown) (no (unknown) (unknown) Chaperoned by (units ( unknown) date) Marissa Hoff LPN unknown) (unknown) (no (unknown) (unknown) Chief Complaint (units (unknown) date) unknown) (unknown) (no (unknown) (unknown) Chief Complaint: (units (unknown) date) Medication unknown) follow-up and IUD placement (unknown) (no (unknown) (unknown) Chlamydia (units (unkn own) date) unknown) (unknown) (no (unknown) (unknown) Code(s): F90.9 - (units (unknown) date) Attention-deficit unknown) hyperactivity disorder, unspecified type (unknown) (no (unknown) (unknown) Consent Form (units (u nknown) date) Signed: Yes unknown) (unknown) (no (unknown) (unknown) Crohn's disease (units (unknown) date) () unknown) (unknown) (no (unknown) (unknown) Culture for (units (un known) date) GC/CT obtained: unknown) No (unknown) (no (unknown) (unknown) : 1995 (units (unknown) date) Acct:[id number] unknown) (unknown) (no (unknown) (unknown) Delivery by (units (un known) date) section unknown) (-05/18/20) (unknown) (no (unknown) (unknown) Depression (units (unk nown) date) unknown) (unknown) (no (unknown) (unknown) Dept at (units (unkno wn) date) . unknown) (unknown) (no (unknown) (unknown) Details: (units (unkno wn) date) unknown) (unknown) (no (unknown) (unknown) Dilation Cervix: (units (unknown) date) No unknown) (unknown) (no (unknown) (unknown) Discontinued (units (u nknown) date) Reason: unknown) Provider's Order 15 mg PO BID 60 tabs 0RF (unknown) (no (unknown) (unknown) Discontinued (units (u nknown) date) Reason: unknown) Provider's Order 7.5 mg PO BID 120 tabs 0RF (unknown) (no (unknown) (unknown) Discontinued (units (u nknown) date) Reason: unknown) Provider's Order TAKE 1 TABLET BY MOUTH DAILY 90 tabs (unknown) (no (unknown) (unknown) Discontinued (units (u nknown) date) unknown) (unknown) (no (unknown) (unknown) Documented By: (units (unknown) date) George Mariscal unknown) 08/19/22 1135 (unknown) (no (unknown) (unknown) Exam Narrative (units (unknown) date) unknown) (unknown) (no (unknown) (unknown) Exam Narrative: (units (unknown) date) unknown) (unknown) (no (unknown) (unknown) Exam (units (unkno wn) date) unknown) (unknown) (no (unknown) (unknown) Explained (units (unkn own) date) Risks/Benefits/Al unknown) ternatives: Yes (unknown) (no (unknown) (unknown) Family History (units (unknown) date) (Updated 03/15/21 unknown) @ 14:04 by Christiana Magallon) (unknown) (no (unknown) (unknown) Family Practice (units (unknown) date) Office Visit unknown) (unknown) (no (unknown) (unknown) Family/Other (units (u nknown) date) Mental health unknown) problem (unknown) (no (unknown) (unknown) Father Stroke (units ( unknown) date) unknown) (unknown) (no (unknown) (unknown) [facility]) (unknown) (no (unknown) (unknown) GI bleeding (units (un known) date) () unknown) (unknown) (no (unknown) (unknown) : (units (unkno wn) date) unknown) (unknown) (no (unknown) (unknown) Grandfather (units (un known) date) Family unknown) estrangement (unknown) (no (unknown) (unknown) Grandfather (units (un known) date) Stomach unknown) cancer (unknown) (no (unknown) (unknown) Grandmother (units (un known) date) Stroke unknown) (unknown) (no (unknown) (unknown) Grandmother (units (un known) date) Unknown unknown) whether patient has any health problems (unknown) (no (unknown) (unknown) H/O being (units (unkn own) date) hospitalized unknown) (-2010) (unknown) (no (unknown) (unknown) H/O wisdom tooth (units (unknown) date) extraction unknown) (-2014) (unknown) (no (unknown) (unknown) HPI (units (unkno wn) date) unknown) (unknown) (no (unknown) (unknown) Heavy menstrual (units (unknown) date) period unknown) (unknown) (no (unknown) (unknown) History of heart (units (unknown) date) disease unknown) (unknown) (no (unknown) (unknown) History of (units (unk nown) date) miscarriage unknown) (unknown) (no (unknown) (unknown) Hyperlipidemia (units (unknown) date) unknown) (unknown) (no (unknown) (unknown) Hypertension (units (u nknown) date) unknown) (unknown) (no (unknown) (unknown) IUD Insert: Yes (units (unknown) date) unknown) (unknown) (no (unknown) (unknown) IUD Type: Mirena (units (unknown) date) unknown) (unknown) (no (unknown) (unknown) IUD- Insertion (units (unknown) date) unknown) (unknown) (no (unknown) (unknown) Ibuprofen and (units ( unknown) date) Call if heavy unknown) bleeding (unknown) (no (unknown) (unknown) Intake performed (units (unknown) date) by: Jane Hoff unknown) Alo (unknown) (no (unknown) (unknown) Intake (units (unkno wn) date) unknown) (unknown) (no (unknown) (unknown) Intake- Clincial (units (unknown) date) Staff unknown) (unknown) (no (unknown) (unknown) Last Menstural (units (unknown) date) Cycle + Details unknown) (unknown) (no (unknown) (unknown) Loc: [facility] (units (unkno wn) date) unknown) (unknown) (no (unknown) (unknown) Medical History (units (unknown) date) (Updated 07/01/22 unknown) @ 17:11 by George Mariscal MD) (unknown) (no (unknown) (unknown) Medications: (units (u nknown) date) unknown) (unknown) (no (unknown) (unknown) Mental health (units ( unknown) date) problem unknown) (unknown) (no (unknown) (unknown) Mirena today. (units ( unknown) date) She tolerated unknown) this well. (unknown) (no (unknown) (unknown) Miscarriage (units (un known) date) unknown) (unknown) (no (unknown) (unknown) 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 (unknown) (no (unknown) (unknown) Mother Cancer (units ( unknown) date) unknown) (unknown) (no (unknown) (unknown) New (units (unkno wn) date) unknown) (unknown) (no (unknown) (unknown) No concerning (units ( unknown) date) appearing tissue. unknown) (unknown) (no (unknown) (unknown) No external (units (un known) date) labial lesions. unknown) minimal amount of clear discharge from cervix. (unknown) (no (unknown) (unknown) Office Procedure (units (unknown) date) unknown) (unknown) (no (unknown) (unknown) Office (units (unkno wn) date) Procedures unknown) (unknown) (no (unknown) (unknown) Orders: (units (unkno wn) date) unknown) (unknown) (no (unknown) (unknown) Other Menstrual (units (unknown) date) Period: Other unknown) (unknown) (no (unknown) (unknown) PFSH (units (unkno wn) date) unknown) (unknown) (no (unknown) (unknown) Paracervical (units (u nknown) date) Block: No unknown) (unknown) (no (unknown) (unknown) Patient (units (unkno wn) date) Tolerated unknown) Procedure: Well (unknown) (no (unknown) (unknown) Patient: (units (unkno wn) date) CarlashanaheavenDarleen MR#: unknown) [id number] (unknown) (no (unknown) (unknown) Plan (units (unkno wn) date) unknown) (unknown) (no (unknown) (unknown) Post-Treatment (units (unknown) date) Care: Call with unknown) fever, chills or abd pain not taken care of with (unknown) (no (unknown) (unknown) Test (units (unknown) date) Performed: Yes unknown) (unknown) (no (unknown) (unknown) Pulse 74 (units (unkno wn) date) unknown) (unknown) (no (unknown) (unknown) Pulse Oximetry (units (unknown) date) (%) 99 unknown) (unknown) (no (unknown) (unknown) Qualifiers: (units (un known) date) unknown) (unknown) (no (unknown) (unknown) Reason For Visit (units (unknown) date) unknown) (unknown) (no (unknown) (unknown) Referral (units (unkno wn) date) Community unknown) Resource Z30.430 - Encounter for insertion of intrauterine (unknown) (no (unknown) (unknown) Referrals (units (unkn own) date) unknown) (unknown) (no (unknown) (unknown) S/P dilation and (units (unknown) date) curettage (-2015) unknown) (unknown) (no (unknown) (unknown) She has been (units (u nknown) date) feeling more unknown) anxious and depressed. She has not improve (unknown) (no (unknown) (unknown) Signed By: (units (unk nown) date) <Electronically unknown) signed by George Mariscal MD> (unknown) (no (unknown) (unknown) Signed (units (unkno wn) date) unknown) (unknown) (no (unknown) (unknown) Smoking Status: (units (unknown) date) Former smoker unknown) (unknown) (no (unknown) (unknown) Social History (units (unknown) date) unknown) (unknown) (no (unknown) (unknown) [place]cul[place] placed: (units (unknown) date) Yes unknown) (unknown) (no (unknown) (unknown) Status: Acute (units ( unknown) date) unknown) (unknown) (no (unknown) (unknown) Status: Chronic (units (unknown) date) unknown) (unknown) (no (unknown) (unknown) Strings Cut (units (un known) date) Length (cm): 2 unknown) (unknown) (no (unknown) (unknown) Surgical History (units (unknown) date) (Updated 03/15/21 unknown) @ 13:52 by Christiana Magallon) (unknown) (no (unknown) (unknown) Tenaculum (units (unkn own) date) placed: No unknown) (unknown) (no (unknown) (unknown) This note may (units ( unknown) date) have been all or unknown) partially generated using voice recognition (unknown) (no (unknown) (unknown) Tobacco + (units (unkn own) date) Substance Use unknown) (unknown) (no (unknown) (unknown) Tobacco Status (units (unknown) date) unknown) (unknown) (no (unknown) (unknown) Tobacco: How (units (u nknown) date) many years used: unknown) 1 (unknown) (no (unknown) (unknown) Unknown whether (units (unknown) date) patient has any unknown) health problems (unknown) (no (unknown) (unknown) Visit Reasons: (units (unknown) date) IUD/ Yaritza unknown) InsertionTRICAR E (unknown) (no (unknown) (unknown) Vitals (units (unkno wn) date) unknown) (unknown) (no (unknown) (unknown) Weight 216 lb (units ( unknown) date) unknown) (unknown) (no (unknown) (unknown) Will increase (units ( unknown) date) Lexapro to 20 mg unknown) daily as well as increasing BuSpar and (unknown) (no (unknown) (unknown) administer doses (units (unknown) date) at least 4-6 unknown) hours apart 20 mg PO BID 60 tabs 0RF (unknown) (no (unknown) (unknown) administer doses (units (unknown) date) at least 4-6 unknown) hours apart (unknown) (no (unknown) (unknown) alcohol intake: (units (unknown) date) current (2-3 unknown) drinks/ 2 wks ) (unknown) (no (unknown) (unknown) buspirone 15 mg (units (unknown) date) PO BID 180 tabs unknown) 0RF (unknown) (no (unknown) (unknown) buspirone (units (unkn own) date) unknown) (unknown) (no (unknown) (unknown) contraceptive (units ( unknown) date) device, Z97.5 - unknown) Presence of (intrauterine) contraceptive device (unknown) (no (unknown) (unknown) current (units (unkno wn) date) occupational unknown) exposures/hazards : No (unknown) (no (unknown) (unknown) dextroamphetamin (units (unknown) date) e-amphetamine 15 unknown) mg (Adderall) (unknown) (no (unknown) (unknown) dextroamphetamin (units (unknown) date) e-amphetamine 20 unknown) mg (Adderall) (unknown) (no (unknown) (unknown) difficult for (units ( unknown) date) her to remember unknown) to take her OCPs as well, which is why she is (unknown) (no (unknown) (unknown) education level: (units (unknown) date) college unknown) (unknown) (no (unknown) (unknown) escitalopram (units (u nknown) date) oxalate (Lexapro) unknown) 20 mg PO DAILY 90 tabs 0RF (unknown) (no (unknown) (unknown) escitalopram (units (u nknown) date) oxalate unknown) (unknown) (no (unknown) (unknown) have occurred. (units (unknown) date) If there are any unknown) questions, please contact the Medical Records (unknown) (no (unknown) (unknown) hoping for IUD (units (unknown) date) placement. unknown) (unknown) (no (unknown) (unknown) household (units (unkn own) date) members: unknown) significant other (unknown) (no (unknown) (unknown) yecenia Allergy (units ( unknown) date) (Severe, Verified unknown) 03/12/21 10:13) (unknown) (no (unknown) (unknown) marital status: (units (unknown) date) unmarried,living unknown) together (unknown) (no (unknown) (unknown) may occur. (units (unk nown) date) Occasional unknown) wrong-word or 'sound-alike' substitutions may have (unknown) (no (unknown) (unknown) mood: (units (unkno wn) date) unknown) (unknown) (no (unknown) (unknown) normal mood and (units (unknown) date) affect. unknown) (unknown) (no (unknown) (unknown) occupational (units (u nknown) date) status: unknown) unemployed (unknown) (no (unknown) (unknown) occurred due to (units (unknown) date) the inherent unknown) limitations of voice recognition software. Please (unknown) (no (unknown) (unknown) pets and (units (unkno wn) date) animals: Yes unknown) (Dog) (unknown) (no (unknown) (unknown) read the note (units ( unknown) date) carefully and unknown) recognize, using context, where these substitutions (unknown) (no (unknown) (unknown) reports that she (units (unknown) date) has been more unknown) forgetful than usual. She has been on Adderall (unknown) (no (unknown) (unknown) second hand (units (un known) date) exposure: No unknown) (unknown) (no (unknown) (unknown) significantly (units ( unknown) date) with medication unknown) adjustments. She is hoping for a switch. (unknown) (no (unknown) (unknown) software. (units (unkn own) date) Although every unknown) effort is made to edit content, district sales representative errors (unknown) (no (unknown) (unknown) special eddie (units ( unknown) date) needs: No unknown) (unknown) (no (unknown) (unknown) substance use (units ( unknown) date) type: does not unknown) use Social History date description facility 2022-08-19 00:00 Ex-smoker ([facility] Vital Signs date measurement value units 2022-08-19 00:00 BP_diastolic 74 mmHg 2022-08-19 00:00 BP_systolic 110 mmHg 2022-08-19 00:00 heart_rate 74 /min 2022-08-19 00:00 o2_saturation 99 % 2022-08-19 00:00 weight_metric 97.97 kg 2022-08-19 00:00 weight_standard 215.99 lb
[2022-10-17 13:18] LABS: BASOPHILS % (AUTO) 0.4 %; EOSINOPHILS # (AUTO) 0.1 10^3/uL (0.0-0.7); EOSINOPHILS % (AUTO) 1.9 %; HCT - HEMATOCRIT 47.2 % (37.0-47.0); HGB - HEMOGLOBIN 15.8 g/dL (12.0-16.0); LYMPHOCYTES # (AUTO) 0.7 10^3/uL (1.5-3.5); LYMPHOCYTES % (AUTO) 12.8 %; MEAN CORPUSCULAR HEMOGLOBIN 31.1 pg (27.0-31.0); MEAN CORPUSCULAR HGB CONC 33.5 g/dL (32.0-36.0); MEAN CORPUSCULAR VOLUME 92.9 fL (81.0-99.0); MEAN PLATELET VOLUME 8.5 fL (7.9-10.8); MONOCYTES # (AUTO) 0.3 10^3/uL (0.0-1.0); MONOCYTES % (AUTO) 6.2 %; NEUTROPHILS # (AUTO) 4.2 10^3/uL (1.5-6.6); NEUTROPHILS % (AUTO) 78.1 %; PLT - PLATELET COUNT 336 10^3/uL (130-450); RED BLOOD COUNT 5.08 10^6/uL (4.20-5.40); RED CELL DISTRIBUTION WIDTH 12.9 % (12.0-15.0); WHITE BLOOD COUNT 5.3 x10^3/uL (4.8-10.8)
[2022-10-17 13:21] LABS: BILIRUBIN,URINE NEGATIVE (NEGATIVE); GLUCOSE, URINE (UA) 100 mg/dL (NEGATIVE); KETONES,URINE (UA) NEGATIVE (NEGATIVE); LEUKOCYTE ESTERASE, URINE NEGATIVE (NEGATIVE); NITRITE,URINE NEGATIVE (NEGATIVE); OCCULT BLOOD,URINE SMALL (NEGATIVE); PROTEIN,URINE NEGATIVE (NEGATIVE); UROBILINOGEN,URINE 0.2 (NORMAL) E.U./dL (NORMAL)
[2022-10-17 13:22] LABS: CLARITY,URINE CLEAR (CLEAR)
[2022-10-17 13:24] LABS: HCG UR QUAL NEGATIVE
[2022-10-17 13:28] LABS: ALBUMIN 4.7 g/dL (3.2-5.5); ALBUMIN/GLOBULIN RATIO 1.5 (1.0-2.2); BILIRUBIN,TOTAL 0.6 mg/dL (0.2-1.0); CALCIUM 9.2 mg/dL (8.5-10.3); CREATININE 0.5 mg/dL (0.4-1.0); POTASSIUM 3.3 mmol/L (3.5-5.0); TOTAL PROTEIN 7.9 g/dL (6.7-8.2)
[2022-10-17 13:43] LABS: BACTERIA,URINE Few /HPF (None Seen); RBC,URINE 0-5 /HPF (0-5); SQUAMOUS EPITHELIAL CELL,UR FEW Squamous (<= Few); WBC,URINE 0-3 /HPF (0-5)
[2022-10-17] MEDS ORDERED: HYDROmorphone 1 MG/ML CARPUJECT IVP STA (13:48)
[2022-10-17] MEDS ORDERED: iohexoL-300 100 ML VIAL ONE (14:20)
--- NOTE | 2022-10-17 15:08 | CT Report ---
PROCEDURE: ABDOMEN/PELVIS W INDICATIONS: RLQ pain onset today. CONTRAST: 100ml Omnipaque 300 TECHNIQUE: After the administration of intravenous contrast, 5 mm thick sections acquired from the diaphragms to the symphysis. 5 mm thick coronal and sagittal reformats were acquired. For radiation dose reducti on, the following was used: automated exposure control, adjustment of mA and/or kV according to demian ent size. COMPARISON: FINDINGS: Image quality: Excellent. Lung bases and heart: Unremarkable. Liver: Unremarkable. Gallbladder and biliary tree: Unremarkable. No biliary dilation. Spleen: Unremarkable. Pancreas: Unremarkable. Adrenals: Unremarkable. Kidneys and ureters: Unremarkable. Bowel and peritoneum: No bowel distension. No pathologic free fluid. Appendix not visualized, but the re is no pericecal fat stranding to suggest appendicitis. Lymph nodes: No central or retroperitoneal adenopathy. Vessels: Unremarkable. PELVIS Reproductive organs: Right-sided corpus luteum. IUD present. Bladder: Unremarkable. Lymph nodes: Unremarkable. Bones: No aggressive osseous abnormality. Other: None. IMPRESSION: Right-sided corpus luteum, otherwise no acute findings explaining the patient's right lower quadrant pain. Reviewed by: Mitesh Dorsey on 10/17/2022 3:07 PM PDT Approved by: Mitesh Dorsey on 10/17/2022 3:07 PM PDT Station ID: [id number]
[2022-10-17] MEDS ORDERED: iohexoL-300 100 ML VIAL IVP ONE (15:49)
[2022-10-17 15:55] VITALS: BP 146/99
== END 2022-10-17 15:55 | disposition home or self-care (01) ==
LOC: ED 12:15
DX: R10.31 Right lower quadrant pain (principal); R11.0 Nausea; Z79.899 Other long term (current) drug therapy
CPT/HCPCS: 36415; 74177; 80053; 81001; 81025; 83690; 85025; 96374; 96375; 99284; J1170; Q9967; 81003; 87086

== ENCOUNTER 2022-10-22 10:48 | Emergency (ER) | payer OTHER ==
--- OUTSIDE RECORDS SUMMARY | 2022-10-22 11:11 | EXTERNAL MEDICAL SUMMARY RPT | Continuity of Care Document ---
:1995 Author Organization [facility] Address [address] [place] [address] Phone Care Team Providers Name Role Phone George Mariscal Unavailable Unavailable Allergies No information. Encounters No information. Functional Status No information. Immunizations No information. Medications date description facility 2022-10-20 00:00 Ondansetron [facility] 2022-10-20 00:00 Naproxen [facility] 2022-08-19 00:00 Escitalopram Oxalate [facility] 2022-08-12 00:00 Dextroamphetamine-Amphetamine [facility] 2022-08-19 00:00 Dextroamphetamine-Amphetamine [facility] 2022-09-19 00:00 Dextroamphetamine-Amphetamine [facility] 2022-10-20 00:00 Hydrocodone-Acetaminophen [facility] date description [facility] 2022-07-25 09:24 Nipple discharge [facility] 2022-07-25 09:24 Excessive and frequent menstruation [facility] regular cycle 2022-07-25 09:24 Family history of malignant neoplasm of [facility] 2022-07-25 17:07 Nipple discharge [facility] 2022-07-25 17:07 Excessive and frequent menstruation [facility] regular cycle 2022-07-25 17:07 Family history of malignant neoplasm of [facility] 2022-08-19 11:33 Encounter for insertion of intrauterine [facility] contraceptive device 2022-08-19 11:33 Presence of (intrauterine) contraceptiv e device [facility] 2022-10-20 10:01 Unspecified abdominal pain [facility] Procedures date description facility 2022-07-25 [facility] right limited [facility] Results/Labs test date author facility value unit interpret ation Result panel 1 (unknown) (no date) (unknown[facility] Result panel 2 (unknown) (no date) (unknown[facility] Result panel 3 (unknown) (no date) (unknown[facility] Result panel 4 (unknown) (no date) (unknown[facility]) Result panel 5 (unknown) (no date) (unknown[facility] Result panel 6 (unknown) (no date) (unknown[facility] Result panel 7 (unknown) (no (unknown) (unknown) (no value) (units (unk nown) date) unknown) (unknown) (no (unknown) (unknown) 07/25/22 (units (unkno wn) date) unknown) (unknown) (no (unknown) (unknown) [address] [place] [address] (units (unknown) date) unknown) (unknown) (no (unknown) (unknown) 4900 (units (unkno wn) date) unknown) (unknown) (no (unknown) (unknown) Accession Number: (units (unknown) date) [id number] unknown) (unknown) (no (unknown) (unknown) Age/Sex: 26 / F (units (unknown) date) Date of Service: unknown) (unknown) (no (unknown) (unknown) [place], [place] (units ( unknown) date) [id number] unknown) (unknown) (no (unknown) (unknown) CLINICAL: Nipple (units (unknown) date) discharge, right unknown) breast, not bloody. (unknown) (no (unknown) (unknown) Clinical (units (unkno wn) date) evaluation is unknown) recommended. This was discussed with the patient. (unknown) (no (unknown) (unknown) : 1995 (units (unknown) date) Acct:[id number] unknown) (unknown) (no (unknown) (unknown) Electronically (units (unknown) date) Signed By: Tristan Barth M.D. (unknown) (no (unknown) (unknown) IMPRESSION: (units (un known) date) NEGATIVE unknown) (unknown) (no (unknown) (unknown) [facility] (units (unknown) date) unknown) (unknown) (no [...] (unknown) (unknown) Patient: (units (unkno wn) date) Jewel Peck MR#: unknown) [id number] (unknown) (no (unknown) (unknown) Please note, with [...] (units (un known) date) unknown) Result panel 8 (unknown) (no (unknown) (unknown) (no value) (units (unk nown) date) unknown) (unknown) (no (unknown) (unknown) 'Lifetime risk to (units (unknown) date) develop breast unknown) cancer' is 20% or higher. (unknown) (no (unknown) (unknown) (category c / (units ( unknown) date) unknown) (unknown) (no (unknown) (unknown) 07/25/22 (units (unkno wn) date) unknown) (unknown) (no (unknown) (unknown) [address] [place] [address] (units (unknown) date) unknown) (unknown) (no (unknown) [...] (unknown) (unknown) Accession Number: (units (unknown) date) [id number] unknown) (unknown) (no (unknown) (unknown) Age/Sex: 26 / F (units (unknown) date) Date of Service: unknown) (unknown) (no (unknown) (unknown) [place], [place] (units ( unknown) date) [address] unknown) (unknown) (no (unknown) (unknown) Approximately (units ( unknown) date) unknown) (unknown) (no (unknown) (unknown) BILATERAL DIGITAL (units (unknown) date) DIAGNOSTIC unknown) MAMMOGRAM 3D/2D: 07/25/2022 (unknown) (no (unknown) (unknown) Based on (units (unkno wn) date) Tyrer-Evyzick model unknown) (a risk assessment model), the patient's lifetime (unknown) (no (unknown) (unknown) Both breasts are (units (unknown) date) heterogeneously unknown) dense, which may obscure small masses (unknown) (no (unknown) (unknown) CLINICAL: (units (unkn own) date) Baseline exam. unknown) Family history of breast cancer. Right breast (unknown) (no (unknown) (unknown) : 1995 (units (unknown) date) Acct:[id number] unknown) (unknown) (no (unknown) (unknown) Electronically (units (unknown) date) Signed By: Tristan Barth M.D. (unknown) (no (unknown) (unknown) IMPRESSION: (units (un known) date) INCOMPLETE: NEEDS unknown) ADDITIONAL IMAGING EVALUATION (unknown) (no (unknown) (unknown) [facility] (units (unknown) date) unknown) (unknown) (no [...] (unknown) (unknown) Patient: (units (unkno wn) date) Jewel Peck MR#: unknown) [id number] (unknown) (no (unknown) (unknown) Procedure: MM (units ( unknown) date) diagnostic mammo unknown) BI (unknown) (no (unknown) (unknown) Signed (units (unkno wn) date) unknown) (unknown) (no (unknown) (unknown) [employer] (units (u nknown) date) [employer] Society, unknown) [employer], and NCCN Guidelines (unknown) [...] however, unknown) ultrasound is recommended. Result panel 9 (unknown) (no date) (unknown) (unknown) 6.7 ng/ml (unkn own) Result panel 10 (unknown) (no date) (unknown) (unknown) 4.72 miu/ml (unkn own) (unknown) (no date) (unknown) (unknown) 4.72 miu/ml (unkn own) (unknown) (no date) (unknown) (unknown) 6.40 miu/ml (unkn own) (unknown) (no date) (unknown) (unknown) 6.40 miu/ml (unkn own) Result panel 11 (unknown) (no (unknown) (unknown) (no value) (units [...] own) date) unknown) (unknown) (no (unknown) (unknown) [place], [place] (units ( unknown) date) [address] unknown) (unknown) (no (unknown) (unknown) Anaphylaxis (units [...] (unknown) (unknown) Crohn's disease (units (unknown) date) (2019) unknown) (unknown) (no (unknown) (unknown) : 1995 (units (unknown) date) Acct:[id number] unknown) (unknown) (no (unknown) (unknown) Delivery by (units (un known) date) section unknown) (-05/18/20) (unknown) (no (unknown) (unknown) Depression (units (unk nown) date) unknown) (unknown) (no (unknown) (unknown) Dept at (units (unkno wn) date) . unknown) (unknown) (no (unknown) (unknown) Documented By: (units (unknown) date) George Mariscal unknown) 08/19/22 1135 (unknown) (no (unknown) (unknown) Draft [...] (unknown) (unknown) Patient: (units (unkno wn) date) Jewel Peck MR#: unknown) [id number] (unknown) (no (unknown) (unknown) Reason For Visit [...] unknown) effort is made to edit content, spare hand carding errors (unknown) (no (unknown) (unknown) special eddie (units ( unknown) date) needs: No unknown) (unknown) (no (unknown) (unknown) substance use (units ( unknown) date) type: does not unknown) use Result panel 12 (unknown) (no (unknown) (unknown) (no value) (units [...] own) date) unknown) (unknown) (no (unknown) (unknown) [place], [place] (units ( unknown) date) [address] unknown) (unknown) (no (unknown) (unknown) Anaphylaxis (units [...] (unknown) (unknown) Crohn's disease (units (unknown) date) (-2019) unknown) (unknown) (no (unknown) (unknown) : 1995 (units (unknown) date) Acct:[id number] unknown) (unknown) (no (unknown) (unknown) Delivery by [...] unknown) 08/19/22 1135 (unknown) (no (unknown) (unknown) Draft [...] date) () unknown) (unknown) (no (unknown) (unknown) Grandfather (units [...] extraction unknown) (-2014) (unknown) (no (unknown) (unknown) Heavy menstrual (units [...] (unknown) (unknown) Patient: (units (unkno wn) date) Jewel Peck MR#: unknown) [id number] (unknown) (no (unknown) (unknown) Pulse 74 (units [...] unknown) effort is made to edit content, spare hand carding errors (unknown) (no (unknown) (unknown) special eddie (units ( unknown) date) needs: No unknown) (unknown) (no (unknown) (unknown) substance use (units ( unknown) date) type: does not unknown) use Result panel 13 (unknown) (no (unknown) (unknown) (no value) (units [...] of Service: unknown) (unknown) (no (unknown) (unknown) is a 26y F (units ( unknown) date) here to follow-up unknown) on ADHD and anxiety and IUD placement. Patient (unknown) (no (unknown) (unknown) Alcohol abuse (units ( unknown) date) unknown) (unknown) (no (unknown) (unknown) Allergies (units (unkn own) date) unknown) (unknown) (no (unknown) (unknown) [place], [place] (units ( unknown) date) [address] unknown) (unknown) (no (unknown) (unknown) Anaphylaxis (units [...] nknown) date) Insertion: unknown) Insertion of IUD- 92043 (unknown) (no (unknown) (unknown) Breast cancer (units [...] (unknown) (unknown) : 1995 (units (unknown) date) Acct:[id number] unknown) (unknown) (no (unknown) (unknown) Delivery by [...] extraction unknown) () (unknown) (no (unknown) (unknown) HPI (units (unkno [...] (unknown) (unknown) Patient: (units (unkno wn) date) Jewel Peck MR#: unknown) [id number] (unknown) (no (unknown) (unknown) Plan (units (unkno [...] unknown) effort is made to edit content, spare hand carding errors (unknown) (no (unknown) (unknown) special eddie (units ( unknown) date) needs: No unknown) (unknown) (no (unknown) (unknown) substance use (units ( unknown) date) type: does not unknown) use Result panel 14 (unknown) (no (unknown) (unknown) (no value) (units (unk nown) date) unknown) (unknown) (no (unknown) (unknown) .Route .COMPLEX (units (unknown) date) #84 tabs 05/16/22 unknown) [Rx Confirmed 10/20/22] (unknown) (no (unknown) (unknown) 09/19/22 [Rx (units (u nknown) date) Confirmed unknown) 10/20/22] (unknown) (no (unknown) (unknown) 10/20/22 (units (unkno wn) date) unknown) (unknown) (no (unknown) (unknown) 10/20/22] (units (unkn own) date) unknown) (unknown) (no (unknown) (unknown) 09:03 (units (unkno wn) date) unknown) (unknown) (no (unknown) (unknown) 26 yo female (units (u nknown) date) presents today unknown) for ER f/u for RUQ pain, possibly appendix. Patient (unknown) (no (unknown) (unknown) 900 (units (unkno wn) date) unknown) (unknown) (no (unknown) (unknown) ADHD (units (unkno wn) date) unknown) (unknown) (no (unknown) (unknown) (units (unkno wn) date) unknown) (unknown) (no (unknown) (unknown) Age/Sex: / (units (unknown) date) Date of Service: unknown) (unknown) (no (unknown) (unknown) Alcohol abuse (units ( unknown) date) unknown) (unknown) (no (unknown) (unknown) Allergies (units (unkn own) date) unknown) (unknown) (no (unknown) (unknown) [place], [place] (units ( unknown) date) [address] unknown) (unknown) (no (unknown) (unknown) Anaphylaxis (units (un known) date) unknown) (unknown) (no (unknown) (unknown) Anesthesia (units (unk nown) date) unknown) (unknown) (no (unknown) (unknown) Anxiety (units (unkno wn) date) unknown) (unknown) (no (unknown) (unknown) Attending Dr: (units ( unknown) date) Barbara El unknown) [employer] (unknown) (no (unknown) (unknown) BMI 37.0 (units (unkno wn) date) unknown) (unknown) (no (unknown) (unknown) BP 140/96 H (units (un known) date) unknown) (unknown) (no (unknown) (unknown) Blood Pressure (units (unknown) date) Location Lt unknown) brachial (unknown) (no (unknown) (unknown) Breast cancer (units ( unknown) date) unknown) (unknown) (no (unknown) (unknown) Brother (units (unkno wn) date) Hypertension unknown) (unknown) (no (unknown) (unknown) Cancer (units (unkno wn) date) unknown) (unknown) (no (unknown) (unknown) Chief Complaint (units (unknown) date) unknown) (unknown) (no (unknown) (unknown) Chief Complaint: (units (unknown) date) ED f/u Abdominal unknown) pain (unknown) (no (unknown) (unknown) Chlamydia (units (unkn own) date) unknown) (unknown) (no (unknown) (unknown) Confirmed (units (unkn own) date) 10/20/22] unknown) (unknown) (no (unknown) (unknown) Crohn's disease (units (unknown) date) () unknown) (unknown) (no (unknown) (unknown) : 1995 (units (unknown) date) Acct:[id number] unknown) (unknown) (no (unknown) (unknown) Delivery by (units (un known) date) section unknown) (-05/18/20) (unknown) (no (unknown) (unknown) Depression (units (unk nown) date) unknown) (unknown) (no (unknown) (unknown) Dept at (units (unkno wn) date) . unknown) (unknown) (no (unknown) (unknown) Details: (units (unkno wn) date) unknown) (unknown) (no (unknown) (unknown) Documented By: (units (unknown) date) Barbara El unknown) [facility] 10/20/22 0858 (unknown) (no (unknown) (unknown) Draft (units (unkno [...] extraction unknown) () (unknown) (no (unknown) (unknown) HPI (units (unkno wn) date) unknown) (unknown) (no (unknown) (unknown) Heavy menstrual (units (unknown) date) period unknown) (unknown) (no (unknown) (unknown) Height 5 ft 4 in (units (unknown) date) unknown) (unknown) (no (unknown) (unknown) History of heart (units (unknown) date) disease unknown) (unknown) (no (unknown) (unknown) History of (units (unk nown) date) miscarriage unknown) (unknown) (no (unknown) (unknown) Hyperlipidemia (units (unknown) date) unknown) (unknown) (no (unknown) (unknown) Hypertension (units (u nknown) date) unknown) (unknown) (no (unknown) (unknown) Intake Note: (units (u nknown) date) unknown) (unknown) (no (unknown) (unknown) Intake performed (units (unknown) date) by: Juliana Baron unknown) L (unknown) (no (unknown) (unknown) Intake (units (unkno [...] George Mariscal MD) (unknown) (no (unknown) (unknown) Medications (units (un known) date) unknown) (unknown) (no (unknown) (unknown) Mental health (units ( unknown) date) problem unknown) (unknown) (no (unknown) (unknown) Miscarriage (units (un known) date) unknown) (unknown) (no (unknown) (unknown) 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 Was evaluated in the ED 10/17/2022. (unknown) (no (unknown) (unknown) Patient: (units (unkno wn) date) Jewel Peck MR#: unknown) [id number] (unknown) (no (unknown) (unknown) Position Sitting (units (unknown) date) unknown) (unknown) (no (unknown) (unknown) Pulse 75 (units (unkno wn) date) unknown) (unknown) (no (unknown) (unknown) Pulse Oximetry (units (unknown) date) (%) 99 unknown) (unknown) (no (unknown) (unknown) Pulse Source (units (u nknown) date) Monitor unknown) (unknown) (no (unknown) (unknown) Q5-15M PRN (units (unk nown) date) anaphylaxis #2 ea unknown) 03/02/22 [Rx Confirmed 10/20/22] (unknown) (no (unknown) (unknown) Reason For Visit (units (unknown) date) unknown) (unknown) (no (unknown) (unknown) Respiration 16 (units (unknown) date) unknown) (unknown) (no (unknown) (unknown) S/P dilation and (units (unknown) date) curettage () unknown) (unknown) (no (unknown) (unknown) Signed By: (units (unk nown) date) unknown) (unknown) (no (unknown) (unknown) Smoking Status: (units (unknown) date) Former smoker unknown) (unknown) (no (unknown) (unknown) Social History (units (unknown) date) unknown) (unknown) (no (unknown) (unknown) Surgical History (units (unknown) date) (Updated 03/15/21 unknown) @ 13:52 by Christiana Magallon) (unknown) (no (unknown) (unknown) Suspicious for (units (unknown) date) appendicitis unknown) however according to the chart note, labs were (unknown) (no (unknown) (unknown) Temp 97.5 F L (units ( unknown) date) unknown) (unknown) (no (unknown) (unknown) Temp Source (units (un known) date) Temporal Artery unknown) Scan (unknown) (no (unknown) (unknown) This note may [...] (unknown) (unknown) Visit Reasons: (units (unknown) date) ER follow up, unknown) appendix, *Dr. Mariscal pt (unknown) (no (unknown) (unknown) Vitals (units (unkno wn) date) unknown) (unknown) (no (unknown) (unknown) Weight 215 lb 8 (units (unknown) date) oz unknown) (unknown) (no (unknown) (unknown) alcohol intake: (units (unknown) date) current (2-3 unknown) drinks/ 2 wks ) (unknown) (no (unknown) (unknown) buspirone 15 mg (units (unknown) date) tablet 15 mg PO unknown) BID #180 tabs 08/19/22 [Rx Confirmed 10/20/22] (unknown) (no (unknown) (unknown) current (units (unkno wn) date) occupational unknown) exposures/hazards : No (unknown) (no (unknown) (unknown) dextroamphetamin (units (unknown) date) e-amphetamine 20 unknown) mg tablet (Adderall) 20 mg PO BID #60 tabs (unknown) (no (unknown) (unknown) education level: (units (unknown) date) college unknown) (unknown) (no (unknown) (unknown) epinephrine 0.3 (units (unknown) date) mg/0.3 mL unknown) injection, auto-injector (EpiPen) 0.3 mg (0.3 mL) IM (unknown) (no (unknown) (unknown) escitalopram (units (un known) date) oxalate 20 mg unknown) tablet (Lexapro) 20 mg PO DAILY #90 tabs 08/19/22 [Rx (unknown) (no (unknown) (unknown) ethynodiol (units (unk nown) date) diacetate-ethinyl unknown) estradiol 1 mg-35 mcg tablet See Rx Instructions (unknown) (no (unknown) (unknown) experiencing (units (u nknown) date) pain. unknown) (unknown) (no (unknown) (unknown) have occurred. (units (unknown) date) If there are any unknown) questions, please contact the Medical Records (unknown) (no (unknown) (unknown) household (units (unkn own) date) members: unknown) significant other (unknown) (no (unknown) (unknown) hydrocodone 5 (units ( unknown) date) mg-acetaminophen unknown) 325 mg tablet 1 tab PO BID PRN 10/20/22 [History (unknown) (no (unknown) (unknown) inflammation. (units ( unknown) date) She was unknown) discharged home with pain medication and return (unknown) (no (unknown) (unknown) yecenia Allergy (units ( unknown) date) (Severe, Verified unknown) 10/20/22 09:02) (unknown) (no (unknown) (unknown) marital status: (units (unknown) date) unmarried,living unknown) together (unknown) (no (unknown) (unknown) may occur. (units (unk nown) date) Occasional unknown) wrong-word or 'sound-alike' substitutions may have (unknown) (no (unknown) (unknown) naproxen 250 mg (units (unknown) date) tablet 250 mg PO unknown) BID PRN 10/20/22 [History Confirmed 10/20/22] (unknown) (no (unknown) (unknown) occupational (units (u nknown) date) status: unknown) unemployed (unknown) (no (unknown) (unknown) occurred due to (units (unknown) date) the inherent unknown) limitations of voice recognition software. Please (unknown) (no (unknown) (unknown) ondansetron 4 mg (units (unknown) date) disintegrating unknown) tablet 4 mg PO Q8H 10/20/22 [History Confirmed (unknown) (no (unknown) (unknown) pets and (units (unkno wn) date) animals: Yes unknown) (Dog) (unknown) (no (unknown) (unknown) precautions. (units (u nknown) date) Pain medications unknown) are helping. (unknown) (no (unknown) (unknown) read the note (units ( unknown) date) carefully and unknown) recognize, using context, where these substitutions (unknown) (no (unknown) (unknown) second hand (units (un known) date) exposure: No unknown) (unknown) (no (unknown) (unknown) software. (units (unkn own) date) Although every unknown) effort is made to edit content, spare hand carding errors (unknown) (no (unknown) (unknown) special eddie (units ( unknown) date) needs: No unknown) (unknown) (no (unknown) (unknown) substance use (units ( unknown) date) type: does not unknown) use (unknown) (no (unknown) (unknown) unremarkable and (units (unknown) date) CT scan did not unknown) visualize the appendix but did not show (unknown) (no (unknown) (unknown) was prescribed (units (unknown) date) Naproxen, unknown) [place]-codone 325, and Ondansetron. Patient is still Result panel 15 (unknown) (no (unknown) (unknown) (no value) (units (unk nown) date) unknown) (unknown) (no (unknown) (unknown) .Route .COMPLEX (units (unknown) date) #84 tabs 05/16/22 unknown) [Rx Confirmed 10/20/22] (unknown) (no (unknown) (unknown) 09/19/22 [Rx (units (u nknown) date) Confirmed unknown) 10/20/22] (unknown) (no (unknown) (unknown) 10/20/22 (units (unkno wn) date) unknown) (unknown) (no (unknown) (unknown) 10/20/22] (units (unkn own) date) unknown) (unknown) (no (unknown) (unknown) 09:03 (units (unkno wn) date) unknown) (unknown) (no (unknown) (unknown) 26 yo female (units (u nknown) date) presents today unknown) for ER f/u for RUQ pain, possibly appendix. Patient (unknown) (no (unknown) (unknown) 900 (units (unkno [...] own) date) unknown) (unknown) (no (unknown) (unknown) [place], [place] (units ( unknown) date) [id number] unknown) (unknown) (no (unknown) (unknown) Anaphylaxis (units (un known) date) unknown) (unknown) (no (unknown) (unknown) Anesthesia (units (unk nown) date) unknown) (unknown) (no (unknown) (unknown) Anxiety (units (unkno wn) date) unknown) (unknown) (no (unknown) (unknown) Assessment + (units (u nknown) date) Plan unknown) (unknown) (no (unknown) (unknown) Attending Dr: (units ( unknown) date) Barbara El unknown) [employer] (unknown) (no (unknown) (unknown) BMI 37.0 (units (unkno wn) date) unknown) (unknown) (no (unknown) (unknown) BP 140/96 H (units (un known) date) unknown) (unknown) (no (unknown) (unknown) Blood Pressure (units (unknown) date) Location Lt unknown) brachial (unknown) (no (unknown) (unknown) Breast cancer (units ( unknown) date) unknown) (unknown) (no (unknown) (unknown) Brother (units (unkno wn) date) Hypertension unknown) (unknown) (no (unknown) (unknown) Cancer (units (unkno wn) date) unknown) (unknown) (no (unknown) (unknown) Chief Complaint (units (unknown) date) unknown) (unknown) (no (unknown) (unknown) Chief Complaint: (units (unknown) date) ED f/u Abdominal unknown) pain (unknown) (no (unknown) (unknown) Chlamydia (units (unkn own) date) unknown) (unknown) (no (unknown) (unknown) Confirmed (units (unkn own) date) 10/20/22] unknown) (unknown) (no (unknown) (unknown) Crohn's disease (units (unknown) date) () unknown) (unknown) (no (unknown) (unknown) : 1995 (units (unknown) date) Acct:[id number] unknown) (unknown) (no (unknown) (unknown) Delivery by (units (un known) date) section unknown) (-05/18/20) (unknown) (no (unknown) (unknown) Depression (units (unk nown) date) unknown) (unknown) (no (unknown) (unknown) Dept at (units (unkno wn) date) . unknown) (unknown) (no (unknown) (unknown) Details: (units (unkno wn) date) unknown) (unknown) (no (unknown) (unknown) Documented By: (units (unknown) date) Barbara El unknown) [facility] 10/20/22 0858 (unknown) (no (unknown) (unknown) Draft (units (unkno [...] date) period unknown) (unknown) (no (unknown) (unknown) Height 5 ft 4 in (units (unknown) date) unknown) (unknown) (no (unknown) (unknown) History of heart (units (unknown) date) disease unknown) (unknown) (no (unknown) (unknown) History of (units (unk nown) date) miscarriage unknown) (unknown) (no (unknown) (unknown) Hyperlipidemia (units (unknown) date) unknown) (unknown) (no (unknown) (unknown) Hypertension (units (u nknown) date) unknown) (unknown) (no (unknown) (unknown) Intake Note: (units (u nknown) date) unknown) (unknown) (no (unknown) (unknown) Intake performed (units (unknown) date) by: Juliana Baron unknown) L (unknown) (no (unknown) (unknown) Intake (units (unkno [...] George Mariscal MD) (unknown) (no (unknown) (unknown) Medications (units (un known) date) unknown) (unknown) (no (unknown) (unknown) Medications: (units (u [...] Period: Other unknown) (unknown) (no (unknown) (unknown) Oxygen Delivery (units (unknown) date) Method room air unknown) (unknown) (no (unknown) (unknown) PCP Dr. Mariscal (units (unknown) date) unknown) (unknown) (no (unknown) (unknown) PFSH (units (unkno wn) date) unknown) (unknown) (no (unknown) (unknown) Patient comes in (units (unknown) date) for ED f/u unknown) abdominal pain since 10/17/2022. Was evaluated in (unknown) (no (unknown) (unknown) Patient: (units (unkno wn) date) Jewel Peck MR#: unknown) [id number] (unknown) (no (unknown) (unknown) Position Sitting (units (unknown) date) unknown) (unknown) (no (unknown) (unknown) Pulse 75 (units (unkno wn) date) unknown) (unknown) (no (unknown) (unknown) Pulse Oximetry (units (unknown) date) (%) 99 unknown) (unknown) (no (unknown) (unknown) Pulse Source (units (u nknown) date) Monitor unknown) (unknown) (no (unknown) (unknown) Q5-15M PRN (units (unk nown) date) anaphylaxis #2 ea unknown) 03/02/22 [Rx Confirmed 10/20/22] (unknown) (no (unknown) (unknown) Reason For Visit (units (unknown) date) unknown) (unknown) (no (unknown) (unknown) Respiration 16 (units (unknown) date) unknown) (unknown) (no (unknown) (unknown) S/P [...] by Christiana Magallon) (unknown) (no (unknown) (unknown) Temp 97.5 F L (units ( unknown) date) unknown) (unknown) (no (unknown) (unknown) Temp Source (units (un known) date) Temporal Artery unknown) Scan (unknown) (no (unknown) (unknown) This note may [...] (unknown) (unknown) Visit Reasons: (units (unknown) date) ER follow up, unknown) appendix, *Dr. Mariscal pt (unknown) (no (unknown) (unknown) Vitals (units (unkno wn) date) unknown) (unknown) (no (unknown) (unknown) Weight 215 lb 8 (units (unknown) date) oz unknown) (unknown) (no (unknown) (unknown) alcohol intake: (units (unknown) date) current (2-3 unknown) drinks/ 2 wks ) (unknown) (no (unknown) (unknown) buspirone 15 mg (units (unknown) date) tablet 15 mg PO unknown) BID #180 tabs 08/19/22 [Rx Confirmed 10/20/22] (unknown) (no (unknown) (unknown) current (units (unkno wn) date) occupational unknown) exposures/hazards : No (unknown) (no (unknown) (unknown) dextroamphetamin (units (unknown) date) e-amphetamine 20 unknown) mg tablet (Adderall) 20 mg PO BID #60 tabs (unknown) (no (unknown) (unknown) difficulty. (units (un known) date) Agrees to have unknown) US. (unknown) (no (unknown) (unknown) education level: (units (unknown) date) college unknown) (unknown) (no (unknown) (unknown) epinephrine 0.3 (units (unknown) date) mg/0.3 mL unknown) injection, auto-injector (EpiPen) 0.3 mg (0.3 mL) IM (unknown) (no (unknown) (unknown) escitalopram (units (un known) date) oxalate 20 mg unknown) tablet (Lexapro) 20 mg PO DAILY #90 tabs 08/19/22 [Rx (unknown) (no (unknown) (unknown) ethynodiol (units (unk nown) date) diacetate-ethinyl unknown) estradiol 1 mg-35 mcg tablet See Rx Instructions (unknown) (no (unknown) (unknown) experiencing (units (u nknown) date) pain. unknown) (unknown) (no (unknown) (unknown) gastroenteritis. (units (unknown) date) They provided unknown) pain medication and return precautions. Pain (unknown) (no (unknown) (unknown) have occurred. (units (unknown) date) If there are any unknown) questions, please contact the Medical Records (unknown) (no (unknown) (unknown) household (units (unkn own) date) members: unknown) significant other (unknown) (no (unknown) (unknown) hydrocodone 5 (units ( unknown) date) mg-acetaminophen unknown) 325 mg tablet 1 tab PO BID PRN 10/20/22 [History (unknown) (no (unknown) (unknown) hydrocodone-acet (units (unknown) date) aminophen 5-325 unknown) mg 1 tab PO BID PRN 0RF (unknown) (no (unknown) (unknown) improve after (units ( unknown) date) bowel movement. unknown) Holding fluids and nutrition down without (unknown) (no (unknown) (unknown) yecenia Allergy (units ( unknown) date) (Severe, Verified unknown) 10/20/22 09:02) (unknown) (no (unknown) (unknown) marital status: (units (unknown) date) unmarried,living unknown) together (unknown) (no (unknown) (unknown) may occur. (units (unk nown) date) Occasional unknown) wrong-word or 'sound-alike' substitutions may have (unknown) (no (unknown) (unknown) medications are (units (unknown) date) helping but unknown) symptoms have not really improved much. Has nausea, (unknown) (no (unknown) (unknown) naproxen 250 mg (units (unknown) date) PO BID PRN unknown) (unknown) (no (unknown) (unknown) naproxen 250 mg (units (unknown) date) tablet 250 mg PO unknown) BID PRN 10/20/22 [History Confirmed 10/20/22] (unknown) (no (unknown) (unknown) not show (units (unkno wn) date) inflammation. She unknown) was discharged home diagnoses with viral (unknown) (no (unknown) (unknown) note, labs were (units (unknown) date) unremarkable and unknown) CT scan did not visualize the appendix but did (unknown) (no (unknown) (unknown) occupational (units (u nknown) date) status: unknown) unemployed (unknown) (no (unknown) (unknown) occurred due to (units (unknown) date) the inherent unknown) limitations of voice recognition software. Please (unknown) (no (unknown) (unknown) ondansetron 4 mg (units (unknown) date) PO Q8H unknown) (unknown) (no (unknown) (unknown) ondansetron 4 mg (units (unknown) date) disintegrating unknown) tablet 4 mg PO Q8H 10/20/22 [History Confirmed (unknown) (no (unknown) (unknown) pets and (units [...] unknown) effort is made to edit content, spare hand carding errors (unknown) (no (unknown) (unknown) special eddie (units ( unknown) date) needs: No unknown) (unknown) (no (unknown) (unknown) substance use (units ( unknown) date) type: does not unknown) use (unknown) (no (unknown) (unknown) the ED (units (unkno wn) date) 10/17/2022. unknown) Suspicious for appendicitis however according to the chart (unknown) (no (unknown) (unknown) vomiting (units (unkno wn) date) occasionally, unknown) diarrhea improved. Denies fever, chills. Pain does not (unknown) (no (unknown) (unknown) was prescribed (units (unknown) date) Naproxen, unknown) Whiteriver-codone 325, and Ondansetron. Patient is still Result panel 16 (unknown) (no (unknown) (unknown) (no value) (units (unk nown) date) unknown) (unknown) (no (unknown) (unknown) (1) Abdominal (units ( unknown) date) pain: unknown) (unknown) (no (unknown) (unknown) .Route .COMPLEX (units (unknown) date) #84 tabs 05/16/22 unknown) [Rx Confirmed 10/20/22] (unknown) (no (unknown) (unknown) 09/19/22 [Rx (units (u nknown) date) Confirmed unknown) 10/20/22] (unknown) (no (unknown) (unknown) 10/20/22 (units (unkno wn) date) unknown) (unknown) (no (unknown) (unknown) 10/20/22] (units (unkn own) date) unknown) (unknown) (no (unknown) (unknown) 09:03 (units (unkno wn) date) unknown) (unknown) (no (unknown) (unknown) 26 yo female (units (u nknown) date) presents today unknown) for ER f/u for RUQ pain, possibly appendix. Patient (unknown) (no (unknown) (unknown) 900 (units (unkno [...] own) date) unknown) (unknown) (no (unknown) (unknown) [place], [place] (units ( unknown) date) [id number] unknown) (unknown) (no (unknown) (unknown) Anaphylaxis (units (un known) date) unknown) (unknown) (no (unknown) (unknown) Anesthesia (units (unk nown) date) unknown) (unknown) (no (unknown) (unknown) Anxiety (units (unkno wn) date) unknown) (unknown) (no (unknown) (unknown) Assessment + (units (u nknown) date) Plan unknown) (unknown) (no (unknown) (unknown) Attending Dr: (units ( unknown) date) Barbara El unknown) [employer] (unknown) (no (unknown) (unknown) BMI 37.0 (units (unkno wn) date) unknown) (unknown) (no (unknown) (unknown) BP 140/96 H (units (un known) date) unknown) (unknown) (no (unknown) (unknown) Blood Pressure (units (unknown) date) Location Lt unknown) brachial (unknown) (no (unknown) (unknown) Breast cancer (units ( unknown) date) unknown) (unknown) (no (unknown) (unknown) Brother (units (unkno wn) date) Hypertension unknown) (unknown) (no (unknown) (unknown) Cancer (units (unkno wn) date) unknown) (unknown) (no (unknown) (unknown) Chief Complaint (units (unknown) date) unknown) (unknown) (no (unknown) (unknown) Chief Complaint: (units (unknown) date) ED f/u Abdominal unknown) pain (unknown) (no (unknown) (unknown) Chlamydia (units (unkn own) date) unknown) (unknown) (no (unknown) (unknown) Complete Blood (units (unknown) date) Count NO DIFF 1 unknown) Day R10.9 - Unspecified abdominal pain (unknown) (no (unknown) (unknown) Comprehensive (units ( unknown) date) Metabolic Panel 1 unknown) Day R10.9 - Unspecified abdominal pain (unknown) (no (unknown) (unknown) Confirmed (units (unkn own) date) 10/20/22] unknown) (unknown) (no (unknown) (unknown) Crohn's disease (units (unknown) date) () unknown) (unknown) (no (unknown) (unknown) : 1995 (units (unknown) date) Acct:[id number] unknown) (unknown) (no (unknown) (unknown) Delivery by (units (un known) date) section unknown) (-05/18/20) (unknown) (no (unknown) (unknown) Depression (units (unk nown) date) unknown) (unknown) (no (unknown) (unknown) Dept at (units (unkno wn) date) . unknown) (unknown) (no (unknown) (unknown) Details: (units (unkno wn) date) unknown) (unknown) (no (unknown) (unknown) Documented By: (units (unknown) date) Barbara El unknown) [facility] 10/20/22 0858 (unknown) (no (unknown) (unknown) Draft (units (unkno [...] date) () unknown) (unknown) (no (unknown) (unknown) Grandfather (units [...] date) period unknown) (unknown) (no (unknown) (unknown) Height 5 ft 4 in (units (unknown) date) unknown) (unknown) (no (unknown) (unknown) History of heart (units (unknown) date) disease unknown) (unknown) (no (unknown) (unknown) History of (units (unk nown) date) miscarriage unknown) (unknown) (no (unknown) (unknown) Hyperlipidemia (units (unknown) date) unknown) (unknown) (no (unknown) (unknown) Hypertension (units (u nknown) date) unknown) (unknown) (no (unknown) (unknown) Intake Note: (units (u nknown) date) unknown) (unknown) (no (unknown) (unknown) Intake performed (units (unknown) date) by: Juliana Baron unknown) L (unknown) (no (unknown) (unknown) Intake (units (unkno wn) date) unknown) (unknown) (no (unknown) (unknown) Intake- Clincial (units (unknown) date) Staff unknown) (unknown) (no (unknown) (unknown) Last Menstural (units (unknown) date) Cycle + Details unknown) (unknown) (no (unknown) (unknown) Loc: [facility] (units (unkno wn) date) unknown) (unknown) (no (unknown) (unknown) Medical History (units (unknown) date) (Updated 07/01/22 unknown) @ 17:11 by Goerge Mariscal MD) (unknown) (no (unknown) (unknown) Medications (units (un known) date) unknown) (unknown) (no (unknown) (unknown) Mental health (units ( unknown) date) problem unknown) (unknown) (no (unknown) (unknown) Miscarriage (units (un known) date) unknown) (unknown) (no (unknown) (unknown) 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 Mariscal (units (unknown) date) unknown) (unknown) (no (unknown) (unknown) PFSH (units (unkno wn) date) unknown) (unknown) (no (unknown) (unknown) Patient comes in (units (unknown) date) for ED f/u unknown) abdominal pain since 10/17/2022. Was evaluated in (unknown) (no (unknown) (unknown) Patient: (units (unkno wn) date) Jewel Peck MR#: unknown) [id number] (unknown) (no (unknown) (unknown) Position Sitting (units (unknown) date) unknown) (unknown) (no (unknown) (unknown) Pulse 75 (units (unkno wn) date) unknown) (unknown) (no (unknown) (unknown) Pulse Oximetry (units (unknown) date) (%) 99 unknown) (unknown) (no (unknown) (unknown) Pulse Source (units (u nknown) date) Monitor unknown) (unknown) (no (unknown) (unknown) Q5-15M PRN (units (unk nown) date) anaphylaxis #2 ea unknown) 03/02/22 [Rx Confirmed 10/20/22] (unknown) (no (unknown) (unknown) Reason For Visit (units (unknown) date) unknown) (unknown) (no (unknown) (unknown) Respiration 16 (units (unknown) date) unknown) (unknown) (no (unknown) (unknown) S/P [...] by Christiana Magallon) (unknown) (no (unknown) (unknown) Temp 97.5 F L (units ( unknown) date) unknown) (unknown) (no (unknown) (unknown) Temp Source (units (un known) date) Temporal Artery unknown) Scan (unknown) (no (unknown) (unknown) This note may [...] unknown) health problems (unknown) (no (unknown) (unknown) Urinalysis and (units (unknown) date) Microscopic 1 Day unknown) R10.9 - Unspecified abdominal pain (unknown) (no (unknown) (unknown) Visit Reasons: (units (unknown) date) ER follow up, unknown) appendix, *Dr. Mariscal pt (unknown) (no (unknown) (unknown) Vitals (units (unkno wn) date) unknown) (unknown) (no (unknown) (unknown) Weight 215 lb 8 (units (unknown) date) oz unknown) (unknown) (no (unknown) (unknown) alcohol intake: (units (unknown) date) current (2-3 unknown) drinks/ 2 wks ) (unknown) (no (unknown) (unknown) buspirone 15 mg (units (unknown) date) tablet 15 mg PO unknown) BID #180 tabs 08/19/22 [Rx Confirmed 10/20/22] (unknown) (no (unknown) (unknown) current (units (unkno wn) date) occupational unknown) exposures/hazards : No (unknown) (no (unknown) (unknown) dextroamphetamin (units (unknown) date) e-amphetamine 20 unknown) mg tablet (Adderall) 20 mg PO BID #60 tabs (unknown) (no (unknown) (unknown) difficulty. (units (un known) date) Agrees to have unknown) lab work, abdominal US. (unknown) (no (unknown) (unknown) education level: (units (unknown) date) college unknown) (unknown) (no (unknown) (unknown) epinephrine 0.3 (units (unknown) date) mg/0.3 mL unknown) injection, auto-injector (EpiPen) 0.3 mg (0.3 mL) IM (unknown) (no (unknown) (unknown) escitalopram (units (un known) date) oxalate 20 mg unknown) tablet (Lexapro) 20 mg PO DAILY #90 tabs 08/19/22 [Rx (unknown) (no (unknown) (unknown) ethynodiol (units (unk nown) date) diacetate-ethinyl unknown) estradiol 1 mg-35 mcg tablet See Rx Instructions (unknown) (no (unknown) (unknown) experiencing (units (u nknown) date) pain. unknown) (unknown) (no (unknown) (unknown) gastroenteritis. (units (unknown) date) They provided unknown) pain medication and return precautions. Pain (unknown) (no (unknown) (unknown) have occurred. (units (unknown) date) If there are any unknown) questions, please contact the Medical Records (unknown) (no (unknown) (unknown) household (units (unkn own) date) members: unknown) significant other (unknown) (no (unknown) (unknown) hydrocodone 5 (units ( unknown) date) mg-acetaminophen unknown) 325 mg tablet 1 tab PO BID PRN 10/20/22 [History (unknown) (no (unknown) (unknown) improve after (units ( unknown) date) bowel movement. unknown) Holding fluids and nutrition down without (unknown) (no (unknown) (unknown) yecenia Allergy (units ( unknown) date) (Severe, Verified unknown) 10/20/22 09:02) (unknown) (no (unknown) (unknown) marital status: (units (unknown) date) unmarried,living unknown) together (unknown) (no (unknown) (unknown) may occur. (units (unk nown) date) Occasional unknown) wrong-word or 'sound-alike' substitutions may have (unknown) (no (unknown) (unknown) medications are (units (unknown) date) helping but unknown) symptoms have not really improved much. Has nausea, (unknown) (no (unknown) (unknown) naproxen 250 mg (units (unknown) date) tablet 250 mg PO unknown) BID PRN 10/20/22 [History Confirmed 10/20/22] (unknown) (no (unknown) (unknown) not show (units (unkno wn) date) inflammation. She unknown) was discharged home diagnoses with viral (unknown) (no (unknown) (unknown) note, labs were (units (unknown) date) unremarkable and unknown) CT scan did not visualize the appendix but did (unknown) (no (unknown) (unknown) occupational (units (u nknown) date) status: unknown) unemployed (unknown) (no (unknown) (unknown) occurred due to (units (unknown) date) the inherent unknown) limitations of voice recognition software. Please (unknown) (no (unknown) (unknown) ondansetron 4 mg (units (unknown) date) disintegrating unknown) tablet 4 mg PO Q8H 10/20/22 [History Confirmed (unknown) (no (unknown) (unknown) pets and (units [...] unknown) effort is made to edit content, spare hand carding errors (unknown) (no (unknown) (unknown) special eddie (units ( unknown) date) needs: No unknown) (unknown) (no (unknown) (unknown) substance use (units ( unknown) date) type: does not unknown) use (unknown) (no (unknown) (unknown) the ED (units (unkno wn) date) 10/17/2022. unknown) Suspicious for appendicitis however according to the chart (unknown) (no (unknown) (unknown) vomiting (units (unkno wn) date) occasionally, unknown) diarrhea improved. Denies fever, chills. Pain does not (unknown) (no (unknown) (unknown) was prescribed (units (unknown) date) Naproxen, unknown) Whiteriver-codone 325, and Ondansetron. Patient is still Result panel 17 (unknown) (no (unknown) (unknown) (no value) (units (unk nown) date) unknown) (unknown) (no (unknown) (unknown) (1) Abdominal (units ( unknown) date) pain: unknown) (unknown) (no (unknown) (unknown) .Route .COMPLEX (units (unknown) date) #84 tabs 05/16/22 unknown) [Rx Confirmed 10/20/22] (unknown) (no (unknown) (unknown) 09/19/22 [Rx (units (u nknown) date) Confirmed unknown) 10/20/22] (unknown) (no (unknown) (unknown) 10/20/22 (units (unkno wn) date) unknown) (unknown) (no (unknown) (unknown) 10/20/22] (units (unkn own) date) unknown) (unknown) (no (unknown) (unknown) 09:03 (units (unkno wn) date) unknown) (unknown) (no (unknown) (unknown) 26 yo female (units (u nknown) date) presents today unknown) for ER f/u for RUQ pain, possibly appendix. Patient (unknown) (no (unknown) (unknown) 900 (units (unkno wn) date) unknown) (unknown) (no (unknown) (unknown) ADHD (units (unkno wn) date) unknown) (unknown) (no (unknown) (unknown) (units (unkno wn) date) unknown) (unknown) (no (unknown) (unknown) Affect: normal (units (unknown) date) affect and No unknown) anxious affect (unknown) (no (unknown) (unknown) Age/Sex: 26 / F (units (unknown) date) Date of Service: unknown) (unknown) (no (unknown) (unknown) Alcohol abuse (units ( unknown) date) unknown) (unknown) (no (unknown) (unknown) Allergies (units (unkn own) date) unknown) (unknown) (no (unknown) (unknown) [place], [place] (units ( unknown) date) [id number] unknown) (unknown) (no (unknown) (unknown) Anaphylaxis (units (un known) date) unknown) (unknown) (no (unknown) (unknown) Anesthesia (units (unk nown) date) unknown) (unknown) (no (unknown) (unknown) Anxiety (units (unkno wn) date) unknown) (unknown) (no (unknown) (unknown) Assessment + (units (u nknown) date) Plan unknown) (unknown) (no (unknown) (unknown) Attending Dr: (units ( unknown) date) Barbara El unknown) [employer] (unknown) (no (unknown) (unknown) Attitude: (units (unkn own) date) cooperative unknown) (unknown) (no (unknown) (unknown) Auscultation: (units ( unknown) date) clear to unknown) auscultation bilaterally (unknown) (no (unknown) (unknown) Auscultation: (units ( unknown) date) normal bowel unknown) sounds (unknown) (no (unknown) (unknown) BMI 37.0 (units (unkno wn) date) unknown) (unknown) (no (unknown) (unknown) BP 140/96 H (units (un known) date) unknown) (unknown) (no (unknown) (unknown) Blood Pressure (units (unknown) date) Location Lt unknown) brachial (unknown) (no (unknown) (unknown) Breast cancer (units ( unknown) date) unknown) (unknown) (no (unknown) (unknown) Brother (units (unkno wn) date) Hypertension unknown) (unknown) (no (unknown) (unknown) Cancer (units (unkno wn) date) unknown) (unknown) (no (unknown) (unknown) Cardio (units (unkno wn) date) unknown) (unknown) (no (unknown) (unknown) Chief Complaint (units (unknown) date) unknown) (unknown) (no (unknown) (unknown) Chief Complaint: (units (unknown) date) ED f/u Abdominal unknown) pain (unknown) (no (unknown) (unknown) Chlamydia (units (unkn own) date) unknown) (unknown) (no (unknown) (unknown) Complete Blood (units (unknown) date) Count NO DIFF 1 unknown) Day R10.9 - Unspecified abdominal pain (unknown) (no (unknown) (unknown) Comprehensive (units ( unknown) date) Metabolic Panel 1 unknown) Day R10.9 - Unspecified abdominal pain (unknown) (no (unknown) (unknown) Confirmed (units (unkn own) date) 10/20/22] unknown) (unknown) (no (unknown) (unknown) Const (units (unkno wn) date) unknown) (unknown) (no (unknown) (unknown) Crohn's disease (units (unknown) date) () unknown) (unknown) (no (unknown) (unknown) : 1995 (units (unknown) date) Acct:[id number] unknown) (unknown) (no (unknown) (unknown) Delivery by (units (un known) date) section unknown) (-05/18/20) (unknown) (no (unknown) (unknown) Depression (units (unk nown) date) unknown) (unknown) (no (unknown) (unknown) Dept at (units (unkno wn) date) . unknown) (unknown) (no (unknown) (unknown) Details: (units (unkno wn) date) unknown) (unknown) (no (unknown) (unknown) Documented By: (units (unknown) date) Barbara El unknown) [facility] 10/20/22 0858 (unknown) (no (unknown) (unknown) Draft (units (unkno wn) date) unknown) (unknown) (no (unknown) (unknown) Effort + (units (unkno wn) date) Inspection: unknown) normal respiratory effort, able to speak in complete (unknown) (no (unknown) (unknown) Exam (units (unkno [...] date) (-2006) unknown) (unknown) (no (unknown) (unknown) GI (units (unkno wn) date) unknown) (unknown) (no (unknown) (unknown) General: (units (unkno wn) date) cooperative, unknown) comfortable and no acute distress (unknown) (no (unknown) (unknown) Grandfather (units (un [...] extraction unknown) () (unknown) (no (unknown) (unknown) HPI (units (unkno wn) date) unknown) (unknown) (no (unknown) (unknown) Heart Sounds: S1 (units (unknown) date) normal, S2 normal unknown) and no murmurs (unknown) (no (unknown) (unknown) Heavy menstrual (units (unknown) date) period unknown) (unknown) (no (unknown) (unknown) Height 5 ft 4 in (units (unknown) date) unknown) (unknown) (no (unknown) (unknown) History of heart (units (unknown) date) disease unknown) (unknown) (no (unknown) (unknown) History of (units (unk nown) date) miscarriage unknown) (unknown) (no (unknown) (unknown) Hyperlipidemia (units (unknown) date) unknown) (unknown) (no (unknown) (unknown) Hypertension (units (u nknown) date) unknown) (unknown) (no (unknown) (unknown) Inspection: (units (un known) date) normal to unknown) inspection (unknown) (no (unknown) (unknown) Intake Note: (units (u nknown) date) unknown) (unknown) (no (unknown) (unknown) Intake performed (units (unknown) date) by: Juliana Baron unknown) L (unknown) (no (unknown) (unknown) Intake (units (unkno [...] George Mariscal MD) (unknown) (no (unknown) (unknown) Medications (units (un known) date) unknown) (unknown) (no (unknown) (unknown) Mental health (units ( unknown) date) problem unknown) (unknown) (no (unknown) (unknown) Miscarriage (units (un known) date) unknown) (unknown) (no (unknown) (unknown) 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 Mariscal (units (unknown) date) unknown) (unknown) (no (unknown) (unknown) PFSH (units (unkno wn) date) unknown) (unknown) (no (unknown) (unknown) Palpation: soft, (units (unknown) date) no guarding, no unknown) hepatomegaly and tender in the RLQ (unknown) (no (unknown) (unknown) Patient comes in (units (unknown) date) for ED f/u unknown) abdominal pain since 10/17/2022. Was evaluated in (unknown) (no (unknown) (unknown) Patient: (units (unkno wn) date) Jewel Peck MR#: unknown) [id number] (unknown) (no (unknown) (unknown) Position Sitting (units (unknown) date) unknown) (unknown) (no (unknown) (unknown) Psych (units (unkno wn) date) unknown) (unknown) (no (unknown) (unknown) Pulse 75 (units (unkno wn) date) unknown) (unknown) (no (unknown) (unknown) Pulse Oximetry (units (unknown) date) (%) 99 unknown) (unknown) (no (unknown) (unknown) Pulse Source (units (u nknown) date) Monitor unknown) (unknown) (no (unknown) (unknown) Q5-15M PRN (units (unk n) date) anaphylaxis #2 ea unknown) 03/02/22 [Rx Confirmed 10/20/22] (unknown) (no (unknown) (unknown) RLQ tender with (units (unknown) date) palpation unknown) (unknown) (no (unknown) (unknown) Rate: regular (units ( unknown) date) rate unknown) (unknown) (no (unknown) (unknown) Reason For Visit (units (unknown) date) unknown) (unknown) (no (unknown) (unknown) Resp (units (unkno wn) date) unknown) (unknown) (no (unknown) (unknown) Respiration 16 (units (unknown) date) unknown) (unknown) (no (unknown) (unknown) Rhythm: regular (units (unknown) date) rhythm unknown) (unknown) (no (unknown) (unknown) S/P dilation and (units (unknown) date) curettage () unknown) (unknown) (no (unknown) (unknown) Signed By: (units (unk nown) date) unknown) (unknown) (no (unknown) (unknown) Smoking Status: (units (unknown) date) Former smoker unknown) (unknown) (no (unknown) (unknown) Social History (units (unknown) date) unknown) (unknown) (no (unknown) (unknown) Surgical History (units (unknown) date) (Updated 03/15/21 unknown) @ 13:52 by Christiana Magallon) (unknown) (no (unknown) (unknown) Temp 97.5 F L (units ( unknown) date) unknown) (unknown) (no (unknown) (unknown) Temp Source (units (un known) date) Temporal Artery unknown) Scan (unknown) (no (unknown) (unknown) This note may [...] unknown) health problems (unknown) (no (unknown) (unknown) Urinalysis and (units (unknown) date) Microscopic 1 Day unknown) R10.9 - Unspecified abdominal pain (unknown) (no (unknown) (unknown) Visit Reasons: (units (unknown) date) ER follow up, unknown) appendix, *Dr. Mariscal pt (unknown) (no (unknown) (unknown) Vitals (units (unkno wn) date) unknown) (unknown) (no (unknown) (unknown) Weight 215 lb 8 (units (unknown) date) oz unknown) (unknown) (no (unknown) (unknown) alcohol intake: (units (unknown) date) current (2-3 unknown) drinks/ 2 wks ) (unknown) (no (unknown) (unknown) buspirone 15 mg (units (unknown) date) tablet 15 mg PO unknown) BID #180 tabs 08/19/22 [Rx Confirmed 10/20/22] (unknown) (no (unknown) (unknown) current (units (unkno wn) date) occupational unknown) exposures/hazards : No (unknown) (no (unknown) (unknown) dextroamphetamin (units (unknown) date) e-amphetamine 20 unknown) mg tablet (Adderall) 20 mg PO BID #60 tabs (unknown) (no (unknown) (unknown) difficulty. (units (un known) date) Agrees to have unknown) lab work, abdominal US. (unknown) (no (unknown) (unknown) education level: (units (unknown) date) college unknown) (unknown) (no (unknown) (unknown) epinephrine 0.3 (units (unknown) date) mg/0.3 mL unknown) injection, auto-injector (EpiPen) 0.3 mg (0.3 mL) IM (unknown) (no (unknown) (unknown) escitalopram (units (un known) date) oxalate 20 mg unknown) tablet (Lexapro) 20 mg PO DAILY #90 tabs 08/19/22 [Rx (unknown) (no (unknown) (unknown) ethynodiol (units (unk nown) date) diacetate-ethinyl unknown) estradiol 1 mg-35 mcg tablet See Rx Instructions (unknown) (no (unknown) (unknown) experiencing (units (u nknown) date) pain. unknown) (unknown) (no (unknown) (unknown) gastroenteritis. (units (unknown) date) They provided unknown) pain medication and return precautions. Pain (unknown) (no (unknown) (unknown) have occurred. (units (unknown) date) If there are any unknown) questions, please contact the Medical Records (unknown) (no (unknown) (unknown) household (units (unkn own) date) members: unknown) significant other (unknown) (no (unknown) (unknown) hydrocodone 5 (units ( unknown) date) mg-acetaminophen unknown) 325 mg tablet 1 tab PO BID PRN 10/20/22 [History (unknown) (no (unknown) (unknown) improve after (units ( unknown) date) bowel movement. unknown) Holding fluids and nutrition down without (unknown) (no (unknown) (unknown) yecenia Allergy (units ( unknown) date) (Severe, Verified unknown) 10/20/22 09:02) (unknown) (no (unknown) (unknown) marital status: (units (unknown) date) unmarried,living unknown) together (unknown) (no (unknown) (unknown) may occur. (units (unk nown) date) Occasional unknown) wrong-word or 'sound-alike' substitutions may have (unknown) (no (unknown) (unknown) medications are (units (unknown) date) helping but unknown) symptoms have not really improved much. Has nausea, (unknown) (no (unknown) (unknown) naproxen 250 mg (units (unknown) date) tablet 250 mg PO unknown) BID PRN 10/20/22 [History Confirmed 10/20/22] (unknown) (no (unknown) (unknown) not show (units (unkno wn) date) inflammation. She unknown) was discharged home diagnoses with viral (unknown) (no (unknown) (unknown) note, labs were (units (unknown) date) unremarkable and unknown) CT scan did not visualize the appendix but did (unknown) (no (unknown) (unknown) occupational (units (u nknown) date) status: unknown) unemployed (unknown) (no (unknown) (unknown) occurred due to (units (unknown) date) the inherent unknown) limitations of voice recognition software. Please (unknown) (no (unknown) (unknown) ondansetron 4 mg (units (unknown) date) disintegrating unknown) tablet 4 mg PO Q8H 10/20/22 [History Confirmed (unknown) (no (unknown) (unknown) pets and (units (unkno wn) date) animals: Yes unknown) (Dog) (unknown) (no (unknown) (unknown) read the note (units ( unknown) date) carefully and unknown) recognize, using context, where these substitutions (unknown) (no (unknown) (unknown) second hand (units (un known) date) exposure: No unknown) (unknown) (no (unknown) (unknown) sentences, no (units ( unknown) date) audible wheezes unknown) and no use of accessory muscles (unknown) (no (unknown) (unknown) software. (units (unkn own) date) Although every unknown) effort is made to edit content, spare hand carding errors (unknown) (no (unknown) (unknown) special eddie (units ( unknown) date) needs: No unknown) (unknown) (no (unknown) (unknown) substance use (units ( unknown) date) type: does not unknown) use (unknown) (no (unknown) (unknown) the ED (units (unkno wn) date) 10/17/2022. unknown) Suspicious for appendicitis however according to the chart (unknown) (no (unknown) (unknown) vomiting (units (unkno wn) date) occasionally, unknown) diarrhea improved. Denies fever, chills. Pain does not (unknown) (no (unknown) (unknown) was prescribed (units (unknown) date) Naproxen, unknown) Whiteriver-codone 325, and Ondansetron. Patient is still Result panel 18 (unknown) (no (unknown) (unknown) (no value) (units (unk nown) date) unknown) (unknown) (no (unknown) (unknown) (1) Abdominal (units ( unknown) date) pain: unknown) (unknown) (no (unknown) (unknown) (2) Hematuria: (units (unknown) date) unknown) (unknown) (no (unknown) (unknown) .Route .COMPLEX (units (unknown) date) #84 tabs 05/16/22 unknown) [Rx Confirmed 10/20/22] (unknown) (no (unknown) (unknown) 09/19/22 [Rx (units (u nknown) date) Confirmed unknown) 10/20/22] (unknown) (no (unknown) (unknown) 10/20/22 (units (unkno wn) date) unknown) (unknown) (no (unknown) (unknown) 10/20/22] (units (unkn own) date) unknown) (unknown) (no (unknown) (unknown) 09:03 (units (unkno wn) date) unknown) (unknown) (no (unknown) (unknown) 26 yo female (units (u nknown) date) presents today unknown) for ER f/u for RUQ pain, possibly appendix. Patient (unknown) (no (unknown) (unknown) 900 (units (unkno wn) date) unknown) (unknown) (no (unknown) (unknown) ADHD (units (unkno wn) date) unknown) (unknown) (no (unknown) (unknown) (units (unkno wn) date) unknown) (unknown) (no (unknown) (unknown) Affect: normal (units (unknown) date) affect and No unknown) anxious affect (unknown) (no (unknown) (unknown) Age/Sex: 26 / F (units (unknown) date) Date of Service: unknown) (unknown) (no (unknown) (unknown) Alcohol abuse (units ( unknown) date) unknown) (unknown) (no (unknown) (unknown) Allergies (units (unkn own) date) unknown) (unknown) (no (unknown) (unknown) [place], [place] (units ( unknown) date) [id number] unknown) (unknown) (no (unknown) (unknown) Anaphylaxis (units (un known) date) unknown) (unknown) (no (unknown) (unknown) Anesthesia (units (unk nown) date) unknown) (unknown) (no (unknown) (unknown) Anxiety (units (unkno wn) date) unknown) (unknown) (no (unknown) (unknown) Assessment + (units (u nknown) date) Plan unknown) (unknown) (no (unknown) (unknown) Attending Dr: (units ( unknown) date) Barbara El unknown) [employer] (unknown) (no (unknown) (unknown) Attitude: (units (unkn own) date) cooperative unknown) (unknown) (no (unknown) (unknown) Auscultation: (units ( unknown) date) clear to unknown) auscultation bilaterally (unknown) (no (unknown) (unknown) Auscultation: (units ( unknown) date) normal bowel unknown) sounds (unknown) (no (unknown) (unknown) BMI 37.0 (units (unkno wn) date) unknown) (unknown) (no (unknown) (unknown) BP 140/96 H (units (un known) date) unknown) (unknown) (no (unknown) (unknown) Blood Pressure (units (unknown) date) Location Lt unknown) brachial (unknown) (no (unknown) (unknown) Breast cancer (units ( unknown) date) unknown) (unknown) (no (unknown) (unknown) Brother (units (unkno wn) date) Hypertension unknown) (unknown) (no (unknown) (unknown) Cancer (units (unkno wn) date) unknown) (unknown) (no (unknown) (unknown) Cardio (units (unkno wn) date) unknown) (unknown) (no (unknown) (unknown) Chief Complaint (units (unknown) date) unknown) (unknown) (no (unknown) (unknown) Chief Complaint: (units (unknown) date) ED f/u Abdominal unknown) pain (unknown) (no (unknown) (unknown) Chlamydia (units (unkn own) date) unknown) (unknown) (no (unknown) (unknown) Complete Blood (units (unknown) date) Count NO DIFF 1 unknown) Day R10.9 - Unspecified abdominal pain (unknown) (no (unknown) (unknown) Comprehensive (units ( unknown) date) Metabolic Panel 1 unknown) Day R10.9 - Unspecified abdominal pain (unknown) (no (unknown) (unknown) Confirmed (units (unkn own) date) 10/20/22] unknown) (unknown) (no (unknown) (unknown) Const (units (unkno wn) date) unknown) (unknown) (no (unknown) (unknown) Crohn's disease (units (unknown) date) (-2019) unknown) (unknown) (no (unknown) (unknown) : 1995 (units (unknown) date) Acct:[id number] unknown) (unknown) (no (unknown) (unknown) Delivery by (units (un known) date) section unknown) (-05/18/20) (unknown) (no (unknown) (unknown) Depression (units (unk nown) date) unknown) (unknown) (no (unknown) (unknown) Dept at (units (unkno wn) date) . unknown) (unknown) (no (unknown) (unknown) Details: (units (unkno wn) date) unknown) (unknown) (no (unknown) (unknown) Documented By: (units (unknown) date) Barbara El unknown) [facility] 10/20/22 0858 (unknown) (no (unknown) (unknown) Draft (units (unkno wn) date) unknown) (unknown) (no (unknown) (unknown) Effort + (units (unkno wn) date) Inspection: unknown) normal respiratory effort, able to speak in complete (unknown) (no (unknown) (unknown) Exam (units (unkno wn) date) unknown) (unknown) (no (unknown) (unknown) Family History (units (unknown) date) (Updated 09/20/21 unknown) @ 14:04 by Christiana Magallon) (unknown) [...] date) (-2006) unknown) (unknown) (no (unknown) (unknown) GI (units (unkno wn) date) unknown) (unknown) (no (unknown) (unknown) General: (units (unkno wn) date) cooperative, unknown) comfortable and no acute distress (unknown) (no (unknown) (unknown) Grandfather (units (un [...] extraction unknown) () (unknown) (no (unknown) (unknown) HPI (units (unkno wn) date) unknown) (unknown) (no (unknown) (unknown) Heart Sounds: S1 (units (unknown) date) normal, S2 normal unknown) and no murmurs (unknown) (no (unknown) (unknown) Heavy menstrual (units (unknown) date) period unknown) (unknown) (no (unknown) (unknown) Height 5 ft 4 in (units (unknown) date) unknown) (unknown) (no (unknown) (unknown) Hematuria, (units (unk nown) date) unspecified unknown) (unknown) (no (unknown) (unknown) History of heart (units (unknown) date) disease unknown) (unknown) (no (unknown) (unknown) History of (units (unk nown) date) miscarriage unknown) (unknown) (no (unknown) (unknown) Hyperlipidemia (units (unknown) date) unknown) (unknown) (no (unknown) (unknown) Hypertension (units (u nknown) date) unknown) (unknown) (no (unknown) (unknown) Inspection: (units (un known) date) normal to unknown) inspection (unknown) (no (unknown) (unknown) Intake Note: (units (u nknown) date) unknown) (unknown) (no (unknown) (unknown) Intake performed (units (unknown) date) by: Juliana Baron unknown) L (unknown) (no (unknown) (unknown) Intake (units (unkno [...] George Mariscal MD) (unknown) (no (unknown) (unknown) Medications (units (un known) date) unknown) (unknown) (no (unknown) (unknown) Mental health (units ( unknown) date) problem unknown) (unknown) (no (unknown) (unknown) Miscarriage (units (un known) date) unknown) (unknown) (no (unknown) (unknown) 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 Mariscal (units (unknown) date) unknown) (unknown) (no (unknown) (unknown) PFSH (units (unkno wn) date) unknown) (unknown) (no (unknown) (unknown) POC Urine Dip (units ( unknown) date) Today R10.9 - unknown) Unspecified abdominal pain (unknown) (no (unknown) (unknown) POC Urine (units (unkn own) date) Test unknown) Today R10.9 - Unspecified abdominal pain (unknown) (no (unknown) (unknown) POC (units ( unknown) date) test, negative unknown) (unknown) (no (unknown) (unknown) POC urine (units (unkn own) date) reveals trace unknown) blood otherwise unremarkable. (unknown) (no (unknown) (unknown) Palpation: soft, (units (unknown) date) no guarding, no unknown) hepatomegaly and tender in the RLQ (unknown) (no (unknown) (unknown) Patient comes in (units (unknown) date) for ED f/u unknown) abdominal pain since 10/17/2022. Was evaluated in (unknown) (no (unknown) (unknown) Patient: (units (unkno wn) date) Jewel Peck MR#: unknown) [id number] (unknown) (no (unknown) (unknown) Position Sitting (units (unknown) date) unknown) (unknown) (no (unknown) (unknown) Psych (units (unkno wn) date) unknown) (unknown) (no (unknown) (unknown) Pulse 75 (units (unkno wn) date) unknown) (unknown) (no (unknown) (unknown) Pulse Oximetry (units (unknown) date) (%) 99 unknown) (unknown) (no (unknown) (unknown) Pulse Source (units (u nknown) date) Monitor unknown) (unknown) (no (unknown) (unknown) Q5-15M PRN (units (unk nown) date) anaphylaxis #2 ea unknown) 03/02/22 [Rx Confirmed 10/20/22] (unknown) (no (unknown) (unknown) RLQ tender with (units (unknown) date) palpation unknown) (unknown) (no (unknown) (unknown) Rate: regular (units ( unknown) date) rate unknown) (unknown) (no (unknown) (unknown) Reason For Visit (units (unknown) date) unknown) (unknown) (no (unknown) (unknown) Resp (units (unkno wn) date) unknown) (unknown) (no (unknown) (unknown) Respiration 16 (units (unknown) date) unknown) (unknown) (no (unknown) (unknown) Rhythm: regular (units (unknown) date) rhythm unknown) (unknown) (no (unknown) (unknown) S/P dilation [...] by Christiana Magallon) (unknown) (no (unknown) (unknown) Temp 97.5 F L (units ( unknown) date) unknown) (unknown) (no (unknown) (unknown) Temp Source (units (un known) date) Temporal Artery unknown) Scan (unknown) (no (unknown) (unknown) This note may (units ( unknown) date) have been all or unknown) partially generated using voice recognition (unknown) (no (unknown) (unknown) Tobacco + (units (unkn own) date) Substance Use unknown) (unknown) (no (unknown) (unknown) Tobacco Status (units (unknown) date) unknown) (unknown) (no (unknown) (unknown) Tobacco: How (units (u nknown) date) many years used: unknown) 1 (unknown) (no (unknown) (unknown) US abdomen (units (unk nown) date) complete 1 Week unknown) R10.9 - Unspecified abdominal pain, R31.9 (unknown) (no (unknown) (unknown) Unknown whether (units (unknown) date) patient has any unknown) health problems (unknown) (no (unknown) (unknown) Visit Reasons: (units (unknown) date) ER follow up, unknown) appendix, *Dr. Mariscal pt (unknown) (no (unknown) (unknown) Vitals (units (unkno wn) date) unknown) (unknown) (no (unknown) (unknown) Weight 215 lb 8 (units (unknown) date) oz unknown) (unknown) (no (unknown) (unknown) alcohol intake: (units (unknown) date) current (2-3 unknown) drinks/ 2 wks ) (unknown) (no (unknown) (unknown) buspirone 15 mg (units (unknown) date) tablet 15 mg PO unknown) BID #180 tabs 08/19/22 [Rx Confirmed 10/20/22] (unknown) (no (unknown) (unknown) current (units (unkno wn) date) occupational unknown) exposures/hazards : No (unknown) (no (unknown) (unknown) dextroamphetamin (units (unknown) date) e-amphetamine 20 unknown) mg tablet (Adderall) 20 mg PO BID #60 tabs (unknown) (no (unknown) (unknown) difficulty. (units (un known) date) Agrees to have unknown) lab work, abdominal US. (unknown) (no (unknown) (unknown) education level: (units (unknown) date) college unknown) (unknown) (no (unknown) (unknown) epinephrine 0.3 (units (unknown) date) mg/0.3 mL unknown) injection, auto-injector (EpiPen) 0.3 mg (0.3 mL) IM (unknown) (no (unknown) (unknown) escitalopram (units (un known) date) oxalate 20 mg unknown) tablet (Lexapro) 20 mg PO DAILY #90 tabs 08/19/22 [Rx (unknown) (no (unknown) (unknown) ethynodiol (units (unk nown) date) diacetate-ethinyl unknown) estradiol 1 mg-35 mcg tablet See Rx Instructions (unknown) (no (unknown) (unknown) experiencing (units (u nknown) date) pain. unknown) (unknown) (no (unknown) (unknown) gastroenteritis. (units (unknown) date) They provided unknown) pain medication and return precautions. Pain (unknown) (no (unknown) (unknown) have occurred. (units (unknown) date) If there are any unknown) questions, please contact the Medical Records (unknown) (no (unknown) (unknown) household (units (unkn own) date) members: unknown) significant other (unknown) (no (unknown) (unknown) hydrocodone 5 (units ( unknown) date) mg-acetaminophen unknown) 325 mg tablet 1 tab PO BID PRN 10/20/22 [History (unknown) (no (unknown) (unknown) improve after (units ( unknown) date) bowel movement. unknown) Holding fluids and nutrition down without (unknown) (no (unknown) (unknown) yecenia Allergy (units ( unknown) date) (Severe, Verified unknown) 10/20/22 09:02) (unknown) (no (unknown) (unknown) marital status: (units (unknown) date) unmarried,living unknown) together (unknown) (no (unknown) (unknown) may occur. (units (unk nown) date) Occasional unknown) wrong-word or 'sound-alike' substitutions may have (unknown) (no (unknown) (unknown) medications are (units (unknown) date) helping but unknown) symptoms have not really improved much. Has nausea, (unknown) (no (unknown) (unknown) naproxen 250 mg (units (unknown) date) tablet 250 mg PO unknown) BID PRN 10/20/22 [History Confirmed 10/20/22] (unknown) (no (unknown) (unknown) not show (units (unkno wn) date) inflammation. She unknown) was discharged home diagnoses with viral (unknown) (no (unknown) (unknown) note, labs were (units (unknown) date) unremarkable and unknown) CT scan did not visualize the appendix but did (unknown) (no (unknown) (unknown) occupational (units (u nknown) date) status: unknown) unemployed (unknown) (no (unknown) (unknown) occurred due to (units (unknown) date) the inherent unknown) limitations of voice recognition software. Please (unknown) (no (unknown) (unknown) ondansetron 4 mg (units (unknown) date) disintegrating unknown) tablet 4 mg PO Q8H 10/20/22 [History Confirmed (unknown) (no (unknown) (unknown) pets and (units (unkno wn) date) animals: Yes unknown) (Dog) (unknown) (no (unknown) (unknown) read the note (units ( unknown) date) carefully and unknown) recognize, using context, where these substitutions (unknown) (no (unknown) (unknown) second hand (units (un known) date) exposure: No unknown) (unknown) (no (unknown) (unknown) sentences, no (units ( unknown) date) audible wheezes unknown) and no use of accessory muscles (unknown) (no (unknown) (unknown) software. (units (unkn own) date) Although every unknown) effort is made to edit content, spare hand carding errors (unknown) (no (unknown) (unknown) special eddie (units ( unknown) date) needs: No unknown) (unknown) (no (unknown) (unknown) substance use (units ( unknown) date) type: does not unknown) use (unknown) (no (unknown) (unknown) the ED (units (unkno wn) date) 10/17/2022. unknown) Suspicious for appendicitis however according to the chart (unknown) (no (unknown) (unknown) vomiting (units (unkno wn) date) occasionally, unknown) diarrhea improved. Denies fever, chills. Pain does not (unknown) (no (unknown) (unknown) was prescribed (units (unknown) date) Naproxen, unknown) Whiteriver-codone 325, and Ondansetron. Patient is still Result panel 19 (unknown) (no (unknown) (unknown) (no value) (units (unk nown) date) unknown) (unknown) (no (unknown) (unknown) (1) Abdominal (units ( unknown) date) pain: unknown) (unknown) (no (unknown) (unknown) (2) Hematuria: (units (unknown) date) unknown) (unknown) (no (unknown) (unknown) .Route .COMPLEX (units (unknown) date) #84 tabs 05/16/22 unknown) [Rx Confirmed 10/20/22] (unknown) (no (unknown) (unknown) / (units (unkno wn) date) unknown) (unknown) (no (unknown) (unknown) 09/19/22 [Rx (units (u nknown) date) Confirmed unknown) 10/20/22] (unknown) (no (unknown) (unknown) 10/20/22 (units (unkno wn) date) unknown) (unknown) (no (unknown) (unknown) 10/20/22] (units (unkn own) date) unknown) (unknown) (no (unknown) (unknown) 09:03 (units (unkno wn) date) unknown) (unknown) (no (unknown) (unknown) 09:51 (units (unkno wn) date) unknown) (unknown) (no (unknown) (unknown) 23 (units (unkno wn) date) unknown) (unknown) (no (unknown) (unknown) 26 yo female (units (u nknown) date) presents today unknown) for ER f/u for RUQ pain, possibly appendix. Patient (unknown) (no (unknown) (unknown) 52 (units (unkno wn) date) unknown) (unknown) (no (unknown) (unknown) 900 (units (unkno wn) date) unknown) (unknown) (no (unknown) (unknown) :51 (units (unkno wn) date) unknown) (unknown) (no (unknown) (unknown) ADHD (units (unkno wn) date) unknown) (unknown) (no (unknown) (unknown) (units (unkno wn) date) unknown) (unknown) (no (unknown) (unknown) Affect: normal (units (unknown) date) affect and No unknown) anxious affect (unknown) (no (unknown) (unknown) Age/Sex: 26 / F (units (unknown) date) Date of Service: unknown) (unknown) (no (unknown) (unknown) Alcohol abuse (units ( unknown) date) unknown) (unknown) (no (unknown) (unknown) Allergies (units (unkn own) date) unknown) (unknown) (no (unknown) (unknown) [place], [place] (units ( unknown) date) [id number] unknown) (unknown) (no (unknown) (unknown) Anaphylaxis (units (un known) date) unknown) (unknown) (no (unknown) (unknown) Anesthesia (units (unk nown) date) unknown) (unknown) (no (unknown) (unknown) Anxiety (units (unkno wn) date) unknown) (unknown) (no (unknown) (unknown) Assessment + (units (u nknown) date) Plan unknown) (unknown) (no (unknown) (unknown) Attending Dr: (units ( unknown) date) Barbara El unknown) [employer] (unknown) (no (unknown) (unknown) Attitude: (units (unkn own) date) cooperative unknown) (unknown) (no (unknown) (unknown) Auscultation: (units ( unknown) date) clear to unknown) auscultation bilaterally (unknown) (no (unknown) (unknown) Auscultation: (units ( unknown) date) normal bowel unknown) sounds (unknown) (no (unknown) (unknown) BMI 37.0 (units (unkno wn) date) unknown) (unknown) (no (unknown) (unknown) BP 140/96 H (units (un known) date) unknown) (unknown) (no (unknown) (unknown) Blood Pressure (units (unknown) date) Location Lt unknown) brachial (unknown) (no (unknown) (unknown) Breast cancer (units ( unknown) date) unknown) (unknown) (no (unknown) (unknown) Brother (units (unkno wn) date) Hypertension unknown) (unknown) (no (unknown) (unknown) Cancer (units (unkno wn) date) unknown) (unknown) (no (unknown) (unknown) Cardio (units (unkno wn) date) unknown) (unknown) (no (unknown) (unknown) Chief Complaint (units (unknown) date) unknown) (unknown) (no (unknown) (unknown) Chief Complaint: (units (unknown) date) ED f/u Abdominal unknown) pain (unknown) (no (unknown) (unknown) Chlamydia (units (unkn own) date) unknown) (unknown) (no (unknown) (unknown) Complete Blood (units (unknown) date) Count NO DIFF 1 unknown) Day R10.9 - Unspecified abdominal pain (unknown) (no (unknown) (unknown) Comprehensive (units ( unknown) date) Metabolic Panel 1 unknown) Day R10.9 - Unspecified abdominal pain (unknown) (no (unknown) (unknown) Confirmed (units (unkn own) date) 10/20/22] unknown) (unknown) (no (unknown) (unknown) Const (units (unkno wn) date) unknown) (unknown) (no (unknown) (unknown) Crohn's disease (units (unknown) date) () unknown) (unknown) (no (unknown) (unknown) : 1995 (units (unknown) date) Acct:[id number] unknown) (unknown) (no (unknown) (unknown) Delivery by (units (un known) date) section unknown) (-05/18/20) (unknown) (no (unknown) (unknown) Depression (units (unk nown) date) unknown) (unknown) (no (unknown) (unknown) Dept at (units (unkno wn) date) . unknown) (unknown) (no (unknown) (unknown) Details: (units (unkno wn) date) unknown) (unknown) (no (unknown) (unknown) Documented By: (units (unknown) date) Barabra El unknown) [facility] 10/20/22 0858 (unknown) (no (unknown) (unknown) Draft (units (unkno wn) date) unknown) (unknown) (no (unknown) (unknown) Effort + (units (unkno wn) date) Inspection: unknown) normal respiratory effort, able to speak in complete (unknown) (no (unknown) (unknown) Exam (units (unkno [...] date) () unknown) (unknown) (no (unknown) (unknown) GI (units (unkno wn) date) unknown) (unknown) (no (unknown) (unknown) General: (units (unkno wn) date) cooperative, unknown) comfortable and no acute distress (unknown) (no (unknown) (unknown) Grandfather (units (un [...] extraction unknown) () (unknown) (no (unknown) (unknown) HPI (units (unkno wn) date) unknown) (unknown) (no (unknown) (unknown) Heart Sounds: S1 (units (unknown) date) normal, S2 normal unknown) and no murmurs (unknown) (no (unknown) (unknown) Heavy menstrual (units (unknown) date) period unknown) (unknown) (no (unknown) (unknown) Height 5 ft 4 in (units (unknown) date) unknown) (unknown) (no (unknown) (unknown) Hematuria, (units (unk nown) date) unspecified unknown) (unknown) (no (unknown) (unknown) History of heart (units (unknown) date) disease unknown) (unknown) (no (unknown) (unknown) History of (units (unk nown) date) miscarriage unknown) (unknown) (no (unknown) (unknown) Hyperlipidemia (units (unknown) date) unknown) (unknown) (no (unknown) (unknown) Hypertension (units (u nknown) date) unknown) (unknown) (no (unknown) (unknown) Inspection: (units (un known) date) normal to unknown) inspection (unknown) (no (unknown) (unknown) Intake Note: (units (u nknown) date) unknown) (unknown) (no (unknown) (unknown) Intake performed (units (unknown) date) by: Juliana Baron unknown) L (unknown) (no (unknown) (unknown) Intake (units (unkno [...] George Mariscal MD) (unknown) (no (unknown) (unknown) Medications (units (un known) date) unknown) (unknown) (no (unknown) (unknown) Mental health (units ( unknown) date) problem unknown) (unknown) (no (unknown) (unknown) Miscarriage (units (un known) date) unknown) (unknown) (no (unknown) (unknown) 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 Mariscal (units (unknown) date) unknown) (unknown) (no (unknown) (unknown) PFSH (units (unkno wn) date) unknown) (unknown) (no (unknown) (unknown) POC PREG (units (unkno wn) date) unknown) (unknown) (no (unknown) (unknown) POC Preg Test (units ( unknown) date) Negative Last unknown) Edit by Juliana Baron CMA on 10/20/22 09:52 (unknown) (no (unknown) (unknown) POC Urine Dip (units ( unknown) date) Today R10.9 - unknown) Unspecified abdominal pain (unknown) (no (unknown) (unknown) POC Urine (units (unkn own) date) Test unknown) Today R10.9 - Unspecified abdominal pain (unknown) (no (unknown) (unknown) POC (units ( unknown) date) test, negative unknown) (unknown) (no (unknown) (unknown) POC urine (units (unkn own) date) reveals trace unknown) blood otherwise unremarkable. (unknown) (no (unknown) (unknown) Palpation: soft, (units (unknown) date) no guarding, no unknown) hepatomegaly and tender in the RLQ (unknown) (no (unknown) (unknown) Patient comes in (units (unknown) date) for ED f/u unknown) abdominal pain since 10/17/2022. Was evaluated in (unknown) (no (unknown) (unknown) Patient: (units (unkno wn) date) Jewel Peck MR#: unknown) [id number] (unknown) (no (unknown) (unknown) Position Sitting (units (unknown) date) unknown) (unknown) (no (unknown) (unknown) Preg Expiration (units (unknown) date) 2023-06-25 Last unknown) Edit by Juliana Baron CMA on 10/20/22 09: (unknown) (no (unknown) (unknown) Preg Lot # (units (unk nown) date) [id number] Last unknown) Edit by Juliana Baron CMA on 10/20/22 09:52 (unknown) (no (unknown) (unknown) Preg QC (units (unkno wn) date) Acceptable? Yes unknown) Last Edit by Juliana Baron CMA on 10/20/22 09:52 (unknown) (no (unknown) (unknown) Psych (units (unkno wn) date) unknown) (unknown) (no (unknown) (unknown) Pulse 75 (units (unkno wn) date) unknown) (unknown) (no (unknown) (unknown) Pulse Oximetry (units (unknown) date) (%) 99 unknown) (unknown) (no (unknown) (unknown) Pulse Source (units (u nknown) date) Monitor unknown) (unknown) (no (unknown) (unknown) Q5-15M PRN (units (unk nown) date) anaphylaxis #2 ea unknown) 03/02/22 [Rx Confirmed 10/20/22] (unknown) (no (unknown) (unknown) RLQ tender with (units (unknown) date) palpation unknown) (unknown) (no (unknown) (unknown) Rate: regular (units ( unknown) date) rate unknown) (unknown) (no (unknown) (unknown) Reason For Visit (units (unknown) date) unknown) (unknown) (no (unknown) (unknown) Resp (units (unkno wn) date) unknown) (unknown) (no (unknown) (unknown) Respiration 16 (units (unknown) date) unknown) (unknown) (no (unknown) (unknown) Results (units (unkno wn) date) unknown) (unknown) (no (unknown) (unknown) Rhythm: regular (units (unknown) date) rhythm unknown) (unknown) (no (unknown) (unknown) S/P dilation [...] by Christiana Magallon) (unknown) (no (unknown) (unknown) Temp 97.5 F L (units ( unknown) date) unknown) (unknown) (no (unknown) (unknown) Temp Source (units (un known) date) Temporal Artery unknown) Scan (unknown) (no (unknown) (unknown) This note may (units ( unknown) date) have been all or unknown) partially generated using voice recognition (unknown) (no (unknown) (unknown) Tobacco + (units (unkn own) date) Substance Use unknown) (unknown) (no (unknown) (unknown) Tobacco Status (units (unknown) date) unknown) (unknown) (no (unknown) (unknown) Tobacco: How (units (u nknown) date) many years used: unknown) 1 (unknown) (no (unknown) (unknown) US abdomen (units (unk nown) date) complete 1 Week unknown) R10.9 - Unspecified abdominal pain, R31.9 (unknown) (no (unknown) (unknown) Unknown whether (units (unknown) date) patient has any unknown) health problems (unknown) (no (unknown) (unknown) Urine Appearance (units (unknown) date) Clear Last Edit unknown) by Juliana Baron CMA on 10/20/22 09:51 (unknown) (no (unknown) (unknown) Urine Bilirubin (units (unknown) date) Negative Last unknown) Edit by Juliana Baron CMA on 10/20/22 09:51 (unknown) (no (unknown) (unknown) Urine Blood +- (units (unknown) date) 10 [place]/uL Last unknown) Edit by Juliana Baron CMA on 10/20/22 09:51 (unknown) (no (unknown) (unknown) Urine Color (units (un known) date) Yellow Last Edit unknown) by Juliana Baron CMA on 10/20/22 09:51 (unknown) (no (unknown) (unknown) Urine Dipstick (units (unknown) date) unknown) (unknown) (no (unknown) (unknown) Urine Glucose (units ( unknown) date) Negative mg/dL unknown) Last Edit by Juliana Baron CMA on 10/20/22 09 (unknown) (no (unknown) (unknown) Urine Ketones (units ( unknown) date) Negative Last unknown) Edit by Juliana Baron CMA on 10/20/22 09:51 (unknown) (no (unknown) (unknown) Urine Leukocyte (units (unknown) date) Esterase Negative unknown) Last Edit by Juliana Baron CMA on 10/20 (unknown) (no (unknown) (unknown) Urine Nitrate (units ( unknown) date) Negative Last unknown) Edit by Juliana Baron CMA on 10/20/22 09:51 (unknown) (no (unknown) (unknown) Urine Protein (units ( unknown) date) Negative Last unknown) Edit by Juliana Baron CMA on 10/20/22 09:51 (unknown) (no (unknown) (unknown) Urine Specific (units (unknown) date) Reserve 1.015 unknown) Last Edit by Juliana Baron CMA on 10/20/22 (unknown) (no (unknown) (unknown) Urine (units (unkno wn) date) Urobilinogen - unknown) 0.2 mg/dL Last Edit by Juliana Baron CMA on 10/20/ (unknown) (no (unknown) (unknown) Urine pH 6.0 (units (u nknown) date) Last Edit by Juliana Baron CMA on 10/20/22 09:51 (unknown) (no (unknown) (unknown) Visit Reasons: (units (unknown) date) ER follow up, unknown) appendix, *Dr. Mariscal pt (unknown) (no (unknown) (unknown) Vitals (units (unkno wn) date) unknown) (unknown) (no (unknown) (unknown) Weight 215 lb 8 (units (unknown) date) oz unknown) (unknown) (no (unknown) (unknown) alcohol intake: (units (unknown) date) current (2-3 unknown) drinks/ 2 wks ) (unknown) (no (unknown) (unknown) buspirone 15 mg (units (unknown) date) tablet 15 mg PO unknown) BID #180 tabs 08/19/22 [Rx Confirmed 10/20/22] (unknown) (no (unknown) (unknown) current (units (unkno wn) date) occupational unknown) exposures/hazards : No (unknown) (no (unknown) (unknown) dextroamphetamin (units (unknown) date) e-amphetamine 20 unknown) mg tablet (Adderall) 20 mg PO BID #60 tabs (unknown) (no (unknown) (unknown) difficulty. (units (un known) date) Agrees to have unknown) lab work, abdominal US. (unknown) (no (unknown) (unknown) education level: (units (unknown) date) college unknown) (unknown) (no (unknown) (unknown) epinephrine 0.3 (units (unknown) date) mg/0.3 mL unknown) injection, auto-injector (EpiPen) 0.3 mg (0.3 mL) IM (unknown) (no (unknown) (unknown) escitalopram (units (un known) date) oxalate 20 mg unknown) tablet (Lexapro) 20 mg PO DAILY #90 tabs 08/19/22 [Rx (unknown) (no (unknown) (unknown) ethynodiol (units (unk nown) date) diacetate-ethinyl unknown) estradiol 1 mg-35 mcg tablet See Rx Instructions (unknown) (no (unknown) (unknown) experiencing (units (u nknown) date) pain. unknown) (unknown) (no (unknown) (unknown) gastroenteritis. (units (unknown) date) They provided unknown) pain medication and return precautions. Pain (unknown) (no (unknown) (unknown) have occurred. (units (unknown) date) If there are any unknown) questions, please contact the Medical Records (unknown) (no (unknown) (unknown) household (units (unkn own) date) members: unknown) significant other (unknown) (no (unknown) (unknown) hydrocodone 5 (units ( unknown) date) mg-acetaminophen unknown) 325 mg tablet 1 tab PO BID PRN 10/20/22 [History (unknown) (no (unknown) (unknown) improve after (units ( unknown) date) bowel movement. unknown) Holding fluids and nutrition down without (unknown) (no (unknown) (unknown) yecenia Allergy (units ( unknown) date) (Severe, Verified unknown) 10/20/22 09:02) (unknown) (no (unknown) (unknown) marital status: (units (unknown) date) unmarried,living unknown) together (unknown) (no (unknown) (unknown) may occur. (units (unk nown) date) Occasional unknown) wrong-word or 'sound-alike' substitutions may have (unknown) (no (unknown) (unknown) medications are (units (unknown) date) helping but unknown) symptoms have not really improved much. Has nausea, (unknown) (no (unknown) (unknown) naproxen 250 mg (units (unknown) date) tablet 250 mg PO unknown) BID PRN 10/20/22 [History Confirmed 10/20/22] (unknown) (no (unknown) (unknown) not show (units (unkno wn) date) inflammation. She unknown) was discharged home diagnoses with viral (unknown) (no (unknown) (unknown) note, labs were (units (unknown) date) unremarkable and unknown) CT scan did not visualize the appendix but did (unknown) (no (unknown) (unknown) occupational (units (u nknown) date) status: unknown) unemployed (unknown) (no (unknown) (unknown) occurred due to (units (unknown) date) the inherent unknown) limitations of voice recognition software. Please (unknown) (no (unknown) (unknown) ondansetron 4 mg (units (unknown) date) disintegrating unknown) tablet 4 mg PO Q8H 10/20/22 [History Confirmed (unknown) (no (unknown) (unknown) pets and (units (unkno wn) date) animals: Yes unknown) (Dog) (unknown) (no (unknown) (unknown) read the note (units ( unknown) date) carefully and unknown) recognize, using context, where these substitutions (unknown) (no (unknown) (unknown) second hand (units (un known) date) exposure: No unknown) (unknown) (no (unknown) (unknown) sentences, no (units ( unknown) date) audible wheezes unknown) and no use of accessory muscles (unknown) (no (unknown) (unknown) software. (units (unkn own) date) Although every unknown) effort is made to edit content, spare hand carding errors (unknown) (no (unknown) (unknown) special eddie (units ( unknown) date) needs: No unknown) (unknown) (no (unknown) (unknown) substance use (units ( unknown) date) type: does not unknown) use (unknown) (no (unknown) (unknown) the ED (units (unkno wn) date) 10/17/2022. unknown) Suspicious for appendicitis however according to the chart (unknown) (no (unknown) (unknown) vomiting (units (unkno wn) date) occasionally, unknown) diarrhea improved. Denies fever, chills. Pain does not (unknown) (no (unknown) (unknown) was prescribed (units (unknown) date) Naproxen, unknown) [place]iver-codone 325, and Ondansetron. Patient is still Result panel 20 (unknown) (no date) (unknown) (unknown) 13.4 % (unkn own) (unknown) (no date) (unknown) (unknown) 13.7 g/dl (unkn own) (unknown) (no date) (unknown) (unknown) 31.8 pg (unkn own) (unknown) (no date) (unknown) (unknown) 34.4 % (unkn own) (unknown) (no date) (unknown) (unknown) 363 x10 3/ul (unkn own) (unknown) (no date) (unknown) (unknown) 39.7 % (unkn own) (unknown) (no date) (unknown) (unknown) 4.29 x10 6/ul (unkn own) (unknown) (no date) (unknown) (unknown) 6.1 x10 3/ul (unkn own) (unknown) (no date) (unknown) (unknown) 92.4 fl (unkn own) Result panel 21 (unknown) (no date) (unknown) (unknown) > 60 ml/min (unkn own) (unknown) (no date) (unknown) (unknown) > 60 ml/min (unkn own) (unknown) (no date) (unknown) (unknown) 0.2 mg/dl (unkn own) (unknown) (no date) (unknown) (unknown) 0.60 mg/dl (unkn own) (unknown) (no date) (unknown) (unknown) 1.6 (units unknown) (unknown) (unknown) (no date) (unknown) (unknown) 10 mg/dl (unkn own) (unknown) (no date) (unknown) (unknown) 101 mmol/l (unkn own) (unknown) (no date) (unknown) (unknown) 137 mmol/l (unkn own) (unknown) (no date) (unknown) (unknown) 16.7 (units unknown) (unknown) (unknown) (no date) (unknown) (unknown) 2.6 g/dl (unkn own) (unknown) (no date) (unknown) (unknown) 27 iu/l (unkn own) (unknown) (no date) (unknown) (unknown) 27 mmol/l (unkn own) (unknown) (no date) (unknown) (unknown) 28 iu/l (unkn own) (unknown) (no date) (unknown) (unknown) 4.1 g/dl (unkn own) (unknown) (no date) (unknown) (unknown) 4.5 mmol/l (unkn own) (unknown) (no date) (unknown) (unknown) 6.7 g/dl (unkn own) (unknown) (no date) (unknown) (unknown) 71 u/l (unkn own) (unknown) (no date) (unknown) (unknown) 78 mg/dl (unkn own) (unknown) (no date) (unknown) (unknown) 78 mg/dl (unkn own) (unknown) (no date) (unknown) (unknown) 8.7 mg/dl (unkn own) Result panel 22 (unknown) (no (unknown) (unknown) (no value) (units (unk nown) date) unknown) (unknown) (no (unknown) (unknown) (1) Abdominal (units ( unknown) date) pain: unknown) (unknown) (no (unknown) (unknown) (2) Hematuria: (units (unknown) date) unknown) (unknown) (no (unknown) (unknown) .Route .COMPLEX (units (unknown) date) #84 tabs 05/16/22 unknown) [Rx Confirmed 10/20/22] (unknown) (no (unknown) (unknown) / (units (unkno wn) date) unknown) (unknown) (no (unknown) (unknown) 09/19/22 [Rx (units (u nknown) date) Confirmed unknown) 10/20/22] (unknown) (no (unknown) (unknown) 10/20/22 (units (unkno wn) date) unknown) (unknown) (no (unknown) (unknown) 10/20/22] (units (unkn own) date) unknown) (unknown) (no (unknown) (unknown) 09:03 (units (unkno wn) date) unknown) (unknown) (no (unknown) (unknown) 09:51 (units (unkno wn) date) unknown) (unknown) (no (unknown) (unknown) 23 (units (unkno wn) date) unknown) (unknown) (no (unknown) (unknown) 26 yo female (units (u nknown) date) presents today unknown) for ER f/u for RUQ pain, possibly appendix. Patient (unknown) (no (unknown) (unknown) 52 (units (unkno wn) date) unknown) (unknown) (no (unknown) (unknown) 900 (units (unkno wn) date) unknown) (unknown) (no (unknown) (unknown) :51 (units (unkno wn) date) unknown) (unknown) (no (unknown) (unknown) ADHD (units (unkno wn) date) unknown) (unknown) (no (unknown) (unknown) (units (unkno wn) date) unknown) (unknown) (no (unknown) (unknown) Affect: normal (units (unknown) date) affect and No unknown) anxious affect (unknown) (no (unknown) (unknown) Age/Sex: 26 / F (units (unknown) date) Date of Service: unknown) (unknown) (no (unknown) (unknown) Alcohol abuse (units ( unknown) date) unknown) (unknown) (no (unknown) (unknown) Allergies (units (unkn own) date) unknown) (unknown) (no (unknown) (unknown) [place], [place] (units ( unknown) date) [id number] unknown) (unknown) (no (unknown) (unknown) Anaphylaxis (units (un known) date) unknown) (unknown) (no (unknown) (unknown) Anesthesia (units (unk nown) date) unknown) (unknown) (no (unknown) (unknown) Anxiety (units (unkno wn) date) unknown) (unknown) (no (unknown) (unknown) Assessment + (units (u nknown) date) Plan unknown) (unknown) (no (unknown) (unknown) Attending Dr: (units ( unknown) date) Barbara El unknown) [employer] (unknown) (no (unknown) (unknown) Attitude: (units (unkn own) date) cooperative unknown) (unknown) (no (unknown) (unknown) Auscultation: (units ( unknown) date) clear to unknown) auscultation bilaterally (unknown) (no (unknown) (unknown) Auscultation: (units ( unknown) date) normal bowel unknown) sounds (unknown) (no (unknown) (unknown) BMI 37.0 (units (unkno wn) date) unknown) (unknown) (no (unknown) (unknown) BP 140/96 H (units (un known) date) unknown) (unknown) (no (unknown) (unknown) Blood Pressure (units (unknown) date) Location Lt unknown) brachial (unknown) (no (unknown) (unknown) Breast cancer (units ( unknown) date) unknown) (unknown) (no (unknown) (unknown) Brother (units (unkno wn) date) Hypertension unknown) (unknown) (no (unknown) (unknown) Cancer (units (unkno wn) date) unknown) (unknown) (no (unknown) (unknown) Cardio (units (unkno wn) date) unknown) (unknown) (no (unknown) (unknown) Chief Complaint (units (unknown) date) unknown) (unknown) (no (unknown) (unknown) Chief Complaint: (units (unknown) date) ED f/u Abdominal unknown) pain (unknown) (no (unknown) (unknown) Chlamydia (units (unkn own) date) unknown) (unknown) (no (unknown) (unknown) Complete Blood (units (unknown) date) Count NO DIFF unknown) Today R10.9 - Unspecified abdominal pain (unknown) (no (unknown) (unknown) Comprehensive (units ( unknown) date) Metabolic Panel unknown) Today R10.9 - Unspecified abdominal pain (unknown) (no (unknown) (unknown) Confirmed (units (unkn own) date) 10/20/22] unknown) (unknown) (no (unknown) (unknown) Const (units (unkno wn) date) unknown) (unknown) (no (unknown) (unknown) Crohn's disease (units (unknown) date) () unknown) (unknown) (no (unknown) (unknown) : 1995 (units (unknown) date) Acct:[id number] unknown) (unknown) (no (unknown) (unknown) Delivery by (units (un known) date) section unknown) (-05/18/20) (unknown) (no (unknown) (unknown) Depression (units (unk nown) date) unknown) (unknown) (no (unknown) (unknown) Dept at (units (unkno wn) date) . unknown) (unknown) (no (unknown) (unknown) Details: (units (unkno wn) date) unknown) (unknown) (no (unknown) (unknown) Documented By: (units (unknown) date) Barbara El unknown) [facility] 10/20/22 0858 (unknown) (no (unknown) (unknown) Draft (units (unkno wn) date) unknown) (unknown) (no (unknown) (unknown) Effort + (units (unkno wn) date) Inspection: unknown) normal respiratory effort, able to speak in complete (unknown) (no (unknown) (unknown) Exam (units (unkno [...] date) (-2006) unknown) (unknown) (no (unknown) (unknown) GI (units (unkno wn) date) unknown) (unknown) (no (unknown) (unknown) General: (units (unkno wn) date) cooperative, unknown) comfortable and no acute distress (unknown) (no (unknown) (unknown) Grandfather (units (un [...] extraction unknown) () (unknown) (no (unknown) (unknown) HPI (units (unkno wn) date) unknown) (unknown) (no (unknown) (unknown) Heart Sounds: S1 (units (unknown) date) normal, S2 normal unknown) and no murmurs (unknown) (no (unknown) (unknown) Heavy menstrual (units (unknown) date) period unknown) (unknown) (no (unknown) (unknown) Height 5 ft 4 in (units (unknown) date) unknown) (unknown) (no (unknown) (unknown) Hematuria, (units (unk nown) date) unspecified unknown) (unknown) (no (unknown) (unknown) History of heart (units (unknown) date) disease unknown) (unknown) (no (unknown) (unknown) History of (units (unk nown) date) miscarriage unknown) (unknown) (no (unknown) (unknown) Hyperlipidemia (units (unknown) date) unknown) (unknown) (no (unknown) (unknown) Hypertension (units (u nknown) date) unknown) (unknown) (no (unknown) (unknown) Inspection: (units (un known) date) normal to unknown) inspection (unknown) (no (unknown) (unknown) Intake Note: (units (u nknown) date) unknown) (unknown) (no (unknown) (unknown) Intake performed (units (unknown) date) by: Juliana Baron unknown) L (unknown) (no (unknown) (unknown) Intake (units (unkno [...] George Mariscal MD) (unknown) (no (unknown) (unknown) Medications (units (un known) date) unknown) (unknown) (no (unknown) (unknown) Mental health (units ( unknown) date) problem unknown) (unknown) (no (unknown) (unknown) Miscarriage (units (un known) date) unknown) (unknown) (no (unknown) (unknown) 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 Mariscal (units (unknown) date) unknown) (unknown) (no (unknown) (unknown) PFSH (units (unkno wn) date) unknown) (unknown) (no (unknown) (unknown) POC PREG (units (unkno wn) date) unknown) (unknown) (no (unknown) (unknown) POC Preg Test (units ( unknown) date) Negative Last unknown) Edit by Juliana Baron CMA on 10/20/22 09:52 (unknown) (no (unknown) (unknown) POC Urine Dip (units ( unknown) date) Today R10.9 - unknown) Unspecified abdominal pain (unknown) (no (unknown) (unknown) POC Urine (units (unkn own) date) Test unknown) Today R10.9 - Unspecified abdominal pain (unknown) (no (unknown) (unknown) POC (units ( unknown) date) test, negative unknown) (unknown) (no (unknown) (unknown) POC urine (units (unkn own) date) reveals trace unknown) blood otherwise unremarkable. (unknown) (no (unknown) (unknown) Palpation: soft, (units (unknown) date) no guarding, no unknown) hepatomegaly and tender in the RLQ (unknown) (no (unknown) (unknown) Patient comes in (units (unknown) date) for ED f/u unknown) abdominal pain since 10/17/2022. Was evaluated in (unknown) (no (unknown) (unknown) Patient: (units (unkno wn) date) Jewel Peck MR#: unknown) [id number] (unknown) (no (unknown) (unknown) Position Sitting (units (unknown) date) unknown) (unknown) (no (unknown) (unknown) Preg Expiration (units (unknown) date) 2023-06-25 Last unknown) Edit by Juliana Baron CMA on 10/20/22 09: (unknown) (no (unknown) (unknown) Preg Lot # (units (unk nown) date) [id number] Last unknown) Edit by Juliana Baron CMA on 10/20/22 09:52 (unknown) (no (unknown) (unknown) Preg QC (units (unkno wn) date) Acceptable? Yes unknown) Last Edit by Juliana Baron CMA on 10/20/22 09:52 (unknown) (no (unknown) (unknown) Psych (units (unkno wn) date) unknown) (unknown) (no (unknown) (unknown) Pulse 75 (units (unkno wn) date) unknown) (unknown) (no (unknown) (unknown) Pulse Oximetry (units (unknown) date) (%) 99 unknown) (unknown) (no (unknown) (unknown) Pulse Source (units (u nknown) date) Monitor unknown) (unknown) (no (unknown) (unknown) Q5-15M PRN (units (unk nown) date) anaphylaxis #2 ea unknown) 03/02/22 [Rx Confirmed 10/20/22] (unknown) (no (unknown) (unknown) RLQ tender with (units (unknown) date) palpation unknown) (unknown) (no (unknown) (unknown) Rate: regular (units ( unknown) date) rate unknown) (unknown) (no (unknown) (unknown) Reason For Visit (units (unknown) date) unknown) (unknown) (no (unknown) (unknown) Resp (units (unkno wn) date) unknown) (unknown) (no (unknown) (unknown) Respiration 16 (units (unknown) date) unknown) (unknown) (no (unknown) (unknown) Results (units (unkno wn) date) unknown) (unknown) (no (unknown) (unknown) Rhythm: regular (units (unknown) date) rhythm unknown) (unknown) (no (unknown) (unknown) S/P dilation [...] by Christiana Magallon) (unknown) (no (unknown) (unknown) Temp 97.5 F L (units ( unknown) date) unknown) (unknown) (no (unknown) (unknown) Temp Source (units (un known) date) Temporal Artery unknown) Scan (unknown) (no (unknown) (unknown) This note may (units ( unknown) date) have been all or unknown) partially generated using voice recognition (unknown) (no (unknown) (unknown) Tobacco + (units (unkn own) date) Substance Use unknown) (unknown) (no (unknown) (unknown) Tobacco Status (units (unknown) date) unknown) (unknown) (no (unknown) (unknown) Tobacco: How (units (u nknown) date) many years used: unknown) 1 (unknown) (no (unknown) (unknown) US abdomen (units (unk nown) date) complete 1 Week unknown) R10.9 - Unspecified abdominal pain, R31.9 (unknown) (no (unknown) (unknown) Unknown whether (units (unknown) date) patient has any unknown) health problems (unknown) (no (unknown) (unknown) Urine Appearance (units (unknown) date) Clear Last Edit unknown) by Juliana Baron CMA on 10/20/22 09:51 (unknown) (no (unknown) (unknown) Urine Bilirubin (units (unknown) date) Negative Last unknown) Edit by Juliana Baron CMA on 10/20/22 09:51 (unknown) (no (unknown) (unknown) Urine Blood +- (units (unknown) date) 10 [place]/uL Last unknown) Edit by Juliana Baron CMA on 10/20/22 09:51 (unknown) (no (unknown) (unknown) Urine Color (units (un known) date) Yellow Last Edit unknown) by Juliana Baron CMA on 10/20/22 09:51 (unknown) (no (unknown) (unknown) Urine Dipstick (units (unknown) date) unknown) (unknown) (no (unknown) (unknown) Urine Glucose (units ( unknown) date) Negative mg/dL unknown) Last Edit by Juliana Baron CMA on 10/20/22 09 (unknown) (no (unknown) (unknown) Urine Ketones (units ( unknown) date) Negative Last unknown) Edit by Juliana Baron CMA on 10/20/22 09:51 (unknown) (no (unknown) (unknown) Urine Leukocyte (units (unknown) date) Esterase Negative unknown) Last Edit by Juliana Baron CMA on 10/20 (unknown) (no (unknown) (unknown) Urine Nitrate (units ( unknown) date) Negative Last unknown) Edit by Juliana Baron CMA on 10/20/22 09:51 (unknown) (no (unknown) (unknown) Urine Protein (units ( unknown) date) Negative Last unknown) Edit by Juliana Baron CMA on 10/20/22 09:51 (unknown) (no (unknown) (unknown) Urine Specific (units (unknown) date) Reserve 1.015 unknown) Last Edit by Juliana Baron CMA on 10/20/22 (unknown) (no (unknown) (unknown) Urine (units (unkno wn) date) Urobilinogen - unknown) 0.2 mg/dL Last Edit by Juliana Baron CMA on 10/20/ (unknown) (no (unknown) (unknown) Urine pH 6.0 (units (u nknown) date) Last Edit by Juliana unknownColleen Baron CMA on 10/20/22 09:51 (unknown) (no (unknown) (unknown) Visit Reasons: (units (unknown) date) ER follow up, unknown) appendix, *Dr. Mariscal pt (unknown) (no (unknown) (unknown) Vitals (units (unkno wn) date) unknown) (unknown) (no (unknown) (unknown) Weight 215 lb 8 (units (unknown) date) oz unknown) (unknown) (no (unknown) (unknown) alcohol intake: (units (unknown) date) current (2-3 unknown) drinks/ 2 wks ) (unknown) (no (unknown) (unknown) buspirone 15 mg (units (unknown) date) tablet 15 mg PO unknown) BID #180 tabs 08/19/22 [Rx Confirmed 10/20/22] (unknown) (no (unknown) (unknown) current (units (unkno wn) date) occupational unknown) exposures/hazards : No (unknown) (no (unknown) (unknown) dextroamphetamin (units (unknown) date) e-amphetamine 20 unknown) mg tablet (Adderall) 20 mg PO BID #60 tabs (unknown) (no (unknown) (unknown) difficulty. (units (un known) date) Agrees to have unknown) lab work, abdominal US. (unknown) (no (unknown) (unknown) education level: (units (unknown) date) college unknown) (unknown) (no (unknown) (unknown) epinephrine 0.3 (units (unknown) date) mg/0.3 mL unknown) injection, auto-injector (EpiPen) 0.3 mg (0.3 mL) IM (unknown) (no (unknown) (unknown) escitalopram (units (un known) date) oxalate 20 mg unknown) tablet (Lexapro) 20 mg PO DAILY #90 tabs 08/19/22 [Rx (unknown) (no (unknown) (unknown) ethynodiol (units (unk nown) date) diacetate-ethinyl unknown) estradiol 1 mg-35 mcg tablet See Rx Instructions (unknown) (no (unknown) (unknown) experiencing (units (u nknown) date) pain. unknown) (unknown) (no (unknown) (unknown) gastroenteritis. (units (unknown) date) They provided unknown) pain medication and return precautions. Pain (unknown) (no (unknown) (unknown) have occurred. (units (unknown) date) If there are any unknown) questions, please contact the Medical Records (unknown) (no (unknown) (unknown) household (units (unkn own) date) members: unknown) significant other (unknown) (no (unknown) (unknown) hydrocodone 5 (units ( unknown) date) mg-acetaminophen unknown) 325 mg tablet 1 tab PO BID PRN 10/20/22 [History (unknown) (no (unknown) (unknown) improve after (units ( unknown) date) bowel movement. unknown) Holding fluids and nutrition down without (unknown) (no (unknown) (unknown) yecenia Allergy (units ( unknown) date) (Severe, Verified unknown) 10/20/22 09:02) (unknown) (no (unknown) (unknown) marital status: (units (unknown) date) unmarried,living unknown) together (unknown) (no (unknown) (unknown) may occur. (units (unk nown) date) Occasional unknown) wrong-word or 'sound-alike' substitutions may have (unknown) (no (unknown) (unknown) medications are (units (unknown) date) helping but unknown) symptoms have not really improved much. Has nausea, (unknown) (no (unknown) (unknown) naproxen 250 mg (units (unknown) date) tablet 250 mg PO unknown) BID PRN 10/20/22 [History Confirmed 10/20/22] (unknown) (no (unknown) (unknown) not show (units (unkno wn) date) inflammation. She unknown) was discharged home diagnoses with viral (unknown) (no (unknown) (unknown) note, labs were (units (unknown) date) unremarkable and unknown) CT scan did not visualize the appendix but did (unknown) (no (unknown) (unknown) occupational (units (u nknown) date) status: unknown) unemployed (unknown) (no (unknown) (unknown) occurred due to (units (unknown) date) the inherent unknown) limitations of voice recognition software. Please (unknown) (no (unknown) (unknown) ondansetron 4 mg (units (unknown) date) disintegrating unknown) tablet 4 mg PO Q8H 10/20/22 [History Confirmed (unknown) (no (unknown) (unknown) pets and (units (unkno wn) date) animals: Yes unknown) (Dog) (unknown) (no (unknown) (unknown) read the note (units ( unknown) date) carefully and unknown) recognize, using context, where these substitutions (unknown) (no (unknown) (unknown) second hand (units (un known) date) exposure: No unknown) (unknown) (no (unknown) (unknown) sentences, no (units ( unknown) date) audible wheezes unknown) and no use of accessory muscles (unknown) (no (unknown) (unknown) software. (units (unkn own) date) Although every unknown) effort is made to edit content, spare hand carding errors (unknown) (no (unknown) (unknown) special eddie (units ( unknown) date) needs: No unknown) (unknown) (no (unknown) (unknown) substance use (units ( unknown) date) type: does not unknown) use (unknown) (no (unknown) (unknown) the ED (units (unkno wn) date) 10/17/2022. unknown) Suspicious for appendicitis however according to the chart (unknown) (no (unknown) (unknown) vomiting (units (unkno wn) date) occasionally, unknown) diarrhea improved. Denies fever, chills. Pain does not (unknown) (no (unknown) (unknown) was prescribed (units (unknown) date) Naproxen, unknown) [place]-codone 325, and Ondansetron. Patient is still Result panel 23 (unknown) (no (unknown) (unknown) (no value) (units (unk nown) date) unknown) (unknown) (no (unknown) (unknown) (1) Abdominal (units ( unknown) date) pain: unknown) (unknown) (no (unknown) (unknown) (2) Hematuria: (units (unknown) date) unknown) (unknown) (no (unknown) (unknown) .Route .COMPLEX (units (unknown) date) #84 tabs 05/16/22 unknown) [Rx Confirmed 10/20/22] (unknown) (no (unknown) (unknown) (units (unkno wn) date) unknown) (unknown) (no (unknown) (unknown) 09/19/22 [Rx (units (u nknown) date) Confirmed unknown) 10/20/22] (unknown) (no (unknown) (unknown) 10/20/22 (units (unkno wn) date) unknown) (unknown) (no (unknown) (unknown) 10/20/22] (units (unkn own) date) unknown) (unknown) (no (unknown) (unknown) 09:03 (units (unkno wn) date) unknown) (unknown) (no (unknown) (unknown) 09:51 (units (unkno wn) date) unknown) (unknown) (no (unknown) (unknown) 23 (units (unkno wn) date) unknown) (unknown) (no (unknown) (unknown) 26 yo female (units (u nknown) date) presents today unknown) for ER f/u for RUQ pain, possibly appendix. Patient (unknown) (no (unknown) (unknown) 52 (units (unkno wn) date) unknown) (unknown) (no (unknown) (unknown) 900 (units (unkno wn) date) unknown) (unknown) (no (unknown) (unknown) :51 (units (unkno wn) date) unknown) (unknown) (no (unknown) (unknown) ADHD (units (unkno wn) date) unknown) (unknown) (no (unknown) (unknown) Abdominal (units (unkn own) date) location: right unknown) lower quadrant Qualified Code(s): R10.31 (unknown) (no (unknown) (unknown) (units (unkno wn) date) unknown) (unknown) (no (unknown) (unknown) Affect: normal (units (unknown) date) affect and No unknown) anxious affect (unknown) (no (unknown) (unknown) Age/Sex: 26 / F (units (unknown) date) Date of Service: unknown) (unknown) (no (unknown) (unknown) Alcohol abuse (units ( unknown) date) unknown) (unknown) (no (unknown) (unknown) Allergies (units (unkn own) date) unknown) (unknown) (no (unknown) (unknown) ANALISA [place] (units ( unknown) date) [id number] unknown) (unknown) (no (unknown) (unknown) Anaphylaxis (units (un known) date) unknown) (unknown) (no (unknown) (unknown) Anesthesia (units (unk nown) date) unknown) (unknown) (no (unknown) (unknown) Anxiety (units (unkno wn) date) unknown) (unknown) (no (unknown) (unknown) Assessment + (units (u nknown) date) Plan unknown) (unknown) (no (unknown) (unknown) Attending Dr: (units ( unknown) date) Barbara El unknown) JORDAN (unknown) (no (unknown) (unknown) Attitude: (units (unkn own) date) cooperative unknown) (unknown) (no (unknown) (unknown) Auscultation: (units ( unknown) date) clear to unknown) auscultation bilaterally (unknown) (no (unknown) (unknown) Auscultation: (units ( unknown) date) normal bowel unknown) sounds (unknown) (no (unknown) (unknown) BMI 37.0 (units (unkno wn) date) unknown) (unknown) (no (unknown) (unknown) BP 140/96 H (units (un known) date) unknown) (unknown) (no (unknown) (unknown) Blood Pressure (units (unknown) date) Location Lt unknown) brachial (unknown) (no (unknown) (unknown) Breast cancer (units ( unknown) date) unknown) (unknown) (no (unknown) (unknown) Brother (units (unkno wn) date) Hypertension unknown) (unknown) (no (unknown) (unknown) Cancer (units (unkno wn) date) unknown) (unknown) (no (unknown) (unknown) Cardio (units (unkno wn) date) unknown) (unknown) (no (unknown) (unknown) Chief Complaint (units (unknown) date) unknown) (unknown) (no (unknown) (unknown) Chief Complaint: (units (unknown) date) ED f/u Abdominal unknown) pain (unknown) (no (unknown) (unknown) Chlamydia (units (unkn own) date) unknown) (unknown) (no (unknown) (unknown) Complete Blood (units (unknown) date) Count NO DIFF unknown) 10/20/22 R10.9 - Unspecified abdominal pain (unknown) (no (unknown) (unknown) Comprehensive (units ( unknown) date) Metabolic Panel unknown) 10/20/22 R10.9 - Unspecified abdominal pain (unknown) (no (unknown) (unknown) Confirmed (units (unkn own) date) 10/20/22] unknown) (unknown) (no (unknown) (unknown) Const (units (unkno wn) date) unknown) (unknown) (no (unknown) (unknown) Crohn's disease (units (unknown) date) (-2018) unknown) (unknown) (no (unknown) (unknown) : 1995 (units (unknown) date) Acct:[id number] unknown) (unknown) (no (unknown) (unknown) Delivery by (units (un known) date) section unknown) (-05/18/20) (unknown) (no (unknown) (unknown) Depression (units (unk nown) date) unknown) (unknown) (no (unknown) (unknown) Dept at (units (unkno wn) date) . unknown) (unknown) (no (unknown) (unknown) Details: (units (unkno wn) date) unknown) (unknown) (no (unknown) (unknown) Documented By: (units (unknown) date) Barbara El unknown) [facility] 10/20/22 0858 (unknown) (no (unknown) (unknown) Draft (units (unkno wn) date) unknown) (unknown) (no (unknown) (unknown) Effort + (units (unkno wn) date) Inspection: unknown) normal respiratory effort, able to speak in complete (unknown) (no (unknown) (unknown) Exam (units (unkno [...] date) (-2006) unknown) (unknown) (no (unknown) (unknown) GI (units (unkno wn) date) unknown) (unknown) (no (unknown) (unknown) General: (units (unkno wn) date) cooperative, unknown) comfortable and no acute distress (unknown) (no (unknown) (unknown) Grandfather (units (un [...] wn) date) unknown) (unknown) (no (unknown) (unknown) Heart Sounds: S1 (units (unknown) date) normal, S2 normal unknown) and no murmurs (unknown) (no (unknown) (unknown) Heavy menstrual (units (unknown) date) period unknown) (unknown) (no (unknown) (unknown) Height 5 ft 4 in (units (unknown) date) unknown) (unknown) (no (unknown) (unknown) Hematuria type: (units (unknown) date) other microscopic unknown) Qualified Code(s): R31.29 - Other (unknown) (no (unknown) (unknown) Hematuria, (units (unk nown) date) unspecified unknown) (unknown) (no (unknown) (unknown) History of heart (units (unknown) date) disease unknown) (unknown) (no (unknown) (unknown) History of (units (unk nown) date) miscarriage unknown) (unknown) (no (unknown) (unknown) Hyperlipidemia (units (unknown) date) unknown) (unknown) (no (unknown) (unknown) Hypertension (units (u nknown) date) unknown) (unknown) (no (unknown) (unknown) Inspection: (units (un known) date) normal to unknown) inspection (unknown) (no (unknown) (unknown) Intake Note: (units (u nknown) date) unknown) (unknown) (no (unknown) (unknown) Intake performed (units (unknown) date) by: Juliana Baron unknown) L (unknown) (no (unknown) (unknown) Intake (units (unkno [...] George Mariscal MD) (unknown) (no (unknown) (unknown) Medications (units (un known) date) unknown) (unknown) (no (unknown) (unknown) Mental health (units ( unknown) date) problem unknown) (unknown) (no (unknown) (unknown) Miscarriage (units (un known) date) unknown) (unknown) (no (unknown) (unknown) 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 Mariscal (units (unknown) date) unknown) (unknown) (no (unknown) (unknown) PFSH (units (unkno wn) date) unknown) (unknown) (no (unknown) (unknown) POC PREG (units (unkno wn) date) unknown) (unknown) (no (unknown) (unknown) POC Preg Test (units ( unknown) date) Negative Last unknown) Edit by Juliana Baron CMA on 10/20/22 09:52 (unknown) (no (unknown) (unknown) POC Urine Dip (units ( unknown) date) 10/20/22 R10.9 - unknown) Unspecified abdominal pain (unknown) (no (unknown) (unknown) POC Urine (units (unkn own) date) Test unknown) 10/20/22 R10.9 - Unspecified abdominal pain (unknown) (no (unknown) (unknown) POC (units ( unknown) date) test, negative unknown) (unknown) (no (unknown) (unknown) POC urine (units (unkn own) date) reveals trace unknown) blood otherwise unremarkable. (unknown) (no (unknown) (unknown) Palpation: soft, (units (unknown) date) no guarding, no unknown) hepatomegaly and tender in the RLQ (unknown) (no (unknown) (unknown) Patient comes in (units (unknown) date) for ED f/u unknown) abdominal pain since 10/17/2022. Was evaluated in (unknown) (no (unknown) (unknown) Patient: (units (unkno wn) date) Jewel Peck MR#: unknown) [id number] (unknown) (no (unknown) (unknown) Plan (units (unkno wn) date) unknown) (unknown) (no (unknown) (unknown) Position Sitting (units (unknown) date) unknown) (unknown) (no (unknown) (unknown) Preg Expiration (units (unknown) date) 2023-06-25 Last unknown) Edit by Juliana Baron CMA on 10/20/22 09: (unknown) (no (unknown) (unknown) Preg Lot # (units (unk nown) date) [id number] Last unknown) Edit by Juliana Baron CMA on 10/20/22 09:52 (unknown) (no (unknown) (unknown) Preg QC (units (unkno wn) date) Acceptable? Yes unknown) Last Edit by Juliana Baron CMA on 10/20/22 09:52 (unknown) (no (unknown) (unknown) Psych (units (unkno wn) date) unknown) (unknown) (no (unknown) (unknown) Pulse 75 (units (unkno wn) date) unknown) (unknown) (no (unknown) (unknown) Pulse Oximetry (units (unknown) date) (%) 99 unknown) (unknown) (no (unknown) (unknown) Pulse Source (units (u nknown) date) Monitor unknown) (unknown) (no (unknown) (unknown) Q5-15M PRN (units (unk nown) date) anaphylaxis #2 ea unknown) 03/02/22 [Rx Confirmed 10/20/22] (unknown) (no (unknown) (unknown) Qualifiers: (units (un known) date) unknown) (unknown) (no (unknown) (unknown) RLQ pain, (units (unkn own) date) persisting. unknown) (unknown) (no (unknown) (unknown) RLQ tender with (units (unknown) date) palpation unknown) (unknown) (no (unknown) (unknown) ROS (units (unkno wn) date) unknown) (unknown) (no (unknown) (unknown) Rate: regular (units ( unknown) date) rate unknown) (unknown) (no (unknown) (unknown) Reason For Visit (units (unknown) date) unknown) (unknown) (no (unknown) (unknown) Reports as per (units (unknown) date) HPI unknown) (unknown) (no (unknown) (unknown) Resp (units (unkno wn) date) unknown) (unknown) (no (unknown) (unknown) Respiration 16 (units (unknown) date) unknown) (unknown) (no (unknown) (unknown) Results (units (unkno wn) date) unknown) (unknown) (no (unknown) (unknown) Rhythm: regular (units (unknown) date) rhythm unknown) (unknown) (no (unknown) (unknown) Right lower (units (un known) date) quadrant pain unknown) (unknown) (no (unknown) (unknown) S/P dilation [...] by Christiana Magallon) (unknown) (no (unknown) (unknown) Temp 97.5 F L (units ( unknown) date) unknown) (unknown) (no (unknown) (unknown) Temp Source (units (un known) date) Temporal Artery unknown) Scan (unknown) (no (unknown) (unknown) This note may (units ( unknown) date) have been all or unknown) partially generated using voice recognition (unknown) (no (unknown) (unknown) Tobacco + (units (unkn own) date) Substance Use unknown) (unknown) (no (unknown) (unknown) Tobacco Status (units (unknown) date) unknown) (unknown) (no (unknown) (unknown) Tobacco: How (units (u nknown) date) many years used: unknown) 1 (unknown) (no (unknown) (unknown) US abdomen (units (unk nown) date) complete 1 Week unknown) R10.9 - Unspecified abdominal pain, R31.9 (unknown) (no (unknown) (unknown) Unknown whether (units (unknown) date) patient has any unknown) health problems (unknown) (no (unknown) (unknown) Urine Appearance (units (unknown) date) Clear Last Edit unknown) by Juliana Baron CMA on 10/20/22 09:51 (unknown) (no (unknown) (unknown) Urine Bilirubin (units (unknown) date) Negative Last unknown) Edit by Juliana Baron CMA on 10/20/22 09:51 (unknown) (no (unknown) (unknown) Urine Blood +- (units (unknown) date) 10 [place]/uL Last unknown) Edit by Julaina Baron CMA on 10/20/22 09:51 (unknown) (no (unknown) (unknown) Urine Color (units (un known) date) Yellow Last Edit unknown) by Juliana Baron CMA on 10/20/22 09:51 (unknown) (no (unknown) (unknown) Urine Dipstick (units (unknown) date) unknown) (unknown) (no (unknown) (unknown) Urine Glucose (units ( unknown) date) Negative mg/dL unknown) Last Edit by Juliana Baron CMA on 10/20/22 09 (unknown) (no (unknown) (unknown) Urine Ketones (units ( unknown) date) Negative Last unknown) Edit by Juliana Baron CMA on 10/20/22 09:51 (unknown) (no (unknown) (unknown) Urine Leukocyte (units (unknown) date) Esterase Negative unknown) Last Edit by Juliana Baron CMA on 10/20 (unknown) (no (unknown) (unknown) Urine Nitrate (units ( unknown) date) Negative Last unknown) Edit by Juliana Baron CMA on 10/20/22 09:51 (unknown) (no (unknown) (unknown) Urine Protein (units ( unknown) date) Negative Last unknown) Edit by Juliana Baron CMA on 10/20/22 09:51 (unknown) (no (unknown) (unknown) Urine Specific (units (unknown) date) Reserve 1.015 unknown) Last Edit by Juliana Baron CMA on 10/20/22 (unknown) (no (unknown) (unknown) Urine (units (unkno wn) date) Urobilinogen - unknown) 0.2 mg/dL Last Edit by Juliana Baron CMA on 10/20/ (unknown) (no (unknown) (unknown) Urine pH 6.0 (units (u nknown) date) Last Edit by Juliana Baron CMA on 10/20/22 09:51 (unknown) (no (unknown) (unknown) Visit Reasons: (units (unknown) date) ER follow up, unknown) appendix, *Dr. Mariscal pt (unknown) (no (unknown) (unknown) Vitals (units (unkno wn) date) unknown) (unknown) (no (unknown) (unknown) Weight 215 lb 8 (units (unknown) date) oz unknown) (unknown) (no (unknown) (unknown) alcohol intake: (units (unknown) date) current (2-3 unknown) drinks/ 2 wks ) (unknown) (no (unknown) (unknown) buspirone 15 mg (units (unknown) date) tablet 15 mg PO unknown) BID #180 tabs 08/19/22 [Rx Confirmed 10/20/22] (unknown) (no (unknown) (unknown) chills. Pain does (units (unknown) date) not improve after unknown) bowel movement. Holding fluids and nutrition (unknown) (no (unknown) (unknown) current (units (unkno wn) date) occupational unknown) exposures/hazards : No (unknown) (no (unknown) (unknown) dextroamphetamin (units (unknown) date) e-amphetamine 20 unknown) mg tablet (Adderall) 20 mg PO BID #60 tabs (unknown) (no (unknown) (unknown) down without (units (u nknown) date) difficulty. unknown) Agrees to have lab work, abdominal US. (unknown) (no (unknown) (unknown) education level: (units (unknown) date) college unknown) (unknown) (no (unknown) (unknown) epinephrine 0.3 (units (unknown) date) mg/0.3 mL unknown) injection, auto-injector (EpiPen) 0.3 mg (0.3 mL) IM (unknown) (no (unknown) (unknown) escitalopram (units (un known) date) oxalate 20 mg unknown) tablet (Lexapro) 20 mg PO DAILY #90 tabs 08/19/22 [Rx (unknown) (no (unknown) (unknown) ethynodiol (units (unk nown) date) diacetate-ethinyl unknown) estradiol 1 mg-35 mcg tablet See Rx Instructions (unknown) (no (unknown) (unknown) experiencing (units (u nknown) date) pain. unknown) (unknown) (no (unknown) (unknown) have occurred. (units (unknown) date) If there are any unknown) questions, please contact the Medical Records (unknown) (no (unknown) (unknown) household (units (unkn own) date) members: unknown) significant other (unknown) (no (unknown) (unknown) hydrocodone 5 (units ( unknown) date) mg-acetaminophen unknown) 325 mg tablet 1 tab PO BID PRN 10/20/22 [History (unknown) (no (unknown) (unknown) y[place]enia Allergy (units ( unknown) date) (Severe, Verified unknown) 10/20/22 09:02) (unknown) (no (unknown) (unknown) marital status: (units (unknown) date) unmarried,living unknown) together (unknown) (no (unknown) (unknown) may occur. (units (unk nown) date) Occasional unknown) wrong-word or 'sound-alike' substitutions may have (unknown) (no (unknown) (unknown) microscopic (units (un known) date) hematuria unknown) (unknown) (no (unknown) (unknown) much. Has (units (unkn own) date) nausea, vomiting unknown) occasionally, diarrhea improved. Denies fever, (unknown) (no (unknown) (unknown) naproxen 250 mg (units (unknown) date) tablet 250 mg PO unknown) BID PRN 10/20/22 [History Confirmed 10/20/22] (unknown) (no (unknown) (unknown) not show (units (unkno wn) date) inflammationto unknown) surrounding areas. She was discharged home diagnoses (unknown) (no (unknown) (unknown) note, labs were (units (unknown) date) unremarkable and unknown) CT scan did not visualize the appendix but did (unknown) (no (unknown) (unknown) occupational (units (u nknown) date) status: unknown) unemployed (unknown) (no (unknown) (unknown) occurred due to (units (unknown) date) the inherent unknown) limitations of voice recognition software. Please (unknown) (no (unknown) (unknown) ondansetron 4 mg (units (unknown) date) disintegrating unknown) tablet 4 mg PO Q8H 10/20/22 [History Confirmed (unknown) (no (unknown) (unknown) pets and (units (unkno wn) date) animals: Yes unknown) (Dog) (unknown) (no (unknown) (unknown) precautions. (units (u nknown) date) Pain medications unknown) are helping but symptoms have not really improved (unknown) (no (unknown) (unknown) read the note (units ( unknown) date) carefully and unknown) recognize, using context, where these substitutions (unknown) (no (unknown) (unknown) second hand (units (un known) date) exposure: No unknown) (unknown) (no (unknown) (unknown) sentences, no (units ( unknown) date) audible wheezes unknown) and no use of accessory muscles (unknown) (no (unknown) (unknown) software. (units (unkn own) date) Although every unknown) effort is made to edit content, spare hand carding errors (unknown) (no (unknown) (unknown) special eddie (units ( unknown) date) needs: No unknown) (unknown) (no (unknown) (unknown) substance use (units ( unknown) date) type: does not unknown) use (unknown) (no (unknown) (unknown) the ED (units (unkno wn) date) 10/17/2022. unknown) Suspicious for appendicitis however according to the chart (unknown) (no (unknown) (unknown) was prescribed (units (unknown) date) Naproxen, unknown) [place]-codone 325, and Ondansetron. Patient is still (unknown) (no (unknown) (unknown) with viral (units (unk nown) date) gastroenteritis. unknown) They provided pain medication and return Social History date description facility 2022-08-19 00:00 Ex-smoker (finding) [facility] 2022-10-20 00:00 Ex-smoker (finding) [facility] Vital Signs date measurement value units 2022-08-19 00:00 BP_diastolic 74 mmHg 2022-08-19 00:00 BP_systolic 110 mmHg 2022-08-19 00:00 heart_rate 74 /min 2022-08-19 00:00 o2_saturation 99 % 2022-08-19 00:00 weight_metric 97.97 kg 2022-08-19 00:00 weight_standard 215.99 lb 2022-10-20 00:00 BMI 37.0 kg/m2 2022-10-20 00:00 BP_diastolic 96 mmHg 2022-10-20 00:00 BP_systolic 140 mmHg 2022-10-20 00:00 heart_rate 75 /min 2022-10-20 00:00 height_metric 162.56 cm 2022-10-20 00:00 height_standard 64 in 2022-10-20 00:00 o2_saturation 99 % 2022-10-20 00:00 respiration_rate 16 /min 2022-10-20 00:00 temperature_metric 36.39 C 2022-10-20 00:00 temperature_standard 97.5 F 2022-10-20 00:00 weight_metric 97.74 kg 2022-10-20 00:00 weight_standard 215.48 lb
[2022-10-22 11:21] LABS: BASOPHILS # (AUTO) 0.1 10^3/uL (0.0-0.1); BASOPHILS % (AUTO) 0.8 %; EOSINOPHILS # (AUTO) 0.3 10^3/uL (0.0-0.7); HCT - HEMATOCRIT 45.8 % (37.0-47.0); HGB - HEMOGLOBIN 15.5 g/dL (12.0-16.0); LYMPHOCYTES # (AUTO) 2.6 10^3/uL (1.5-3.5); LYMPHOCYTES % (AUTO) 41.9 %; MEAN CORPUSCULAR HEMOGLOBIN 31.8 pg (27.0-31.0); MEAN CORPUSCULAR HGB CONC 33.8 g/dL (32.0-36.0); MEAN PLATELET VOLUME 8.2 fL (7.9-10.8); MONOCYTES # (AUTO) 0.3 10^3/uL (0.0-1.0); MONOCYTES % (AUTO) 4.8 %; PLT - PLATELET COUNT 386 10^3/uL (130-450); RED BLOOD COUNT 4.87 10^6/uL (4.20-5.40); WHITE BLOOD COUNT 6.3 x10^3/uL (4.8-10.8)
[2022-10-22 11:23] LABS: BILIRUBIN,URINE NEGATIVE (NEGATIVE); GLUCOSE, URINE (UA) NEGATIVE (NEGATIVE); KETONES,URINE (UA) NEGATIVE (NEGATIVE); LEUKOCYTE ESTERASE, URINE TRACE (NEGATIVE); NITRITE,URINE NEGATIVE (NEGATIVE); OCCULT BLOOD,URINE SMALL (NEGATIVE); PROTEIN,URINE NEGATIVE (NEGATIVE); UROBILINOGEN,URINE 0.2 (NORMAL) E.U./dL (NORMAL)
[2022-10-22 11:25] LABS: HCG UR QUAL NEGATIVE
[2022-10-22 11:37] LABS: CLARITY,URINE CLEAR (CLEAR)
[2022-10-22] MEDS ORDERED: ONDANSETRON 4 MG/2 ML VIAL IVP STA (11:40)
[2022-10-22] MEDS ORDERED: HYDROmorphone 1 MG/ML CARPUJECT IVP STA ×3 (11:40→14:57)
[2022-10-22] MEDS ORDERED: KETOROLAC 15 MG/ML VIAL IVP STA (11:40)
[2022-10-22 11:41] LABS: BACTERIA,URINE None Seen /HPF (None Seen); RBC,URINE 0-5 /HPF (0-5); SQUAMOUS EPITHELIAL CELL,UR RARE Squamous (<= Few)
--- NOTE | 2022-10-22 11:43 | ED Physician Documentation ---
PD HPI ABD PAIN - Stated complaint Stated Complaint: ABD PX - Chief complaint Chief Complaint: Abd Pain - History obtained from History obtained from: Patient - Additional information Additional information: 26-year-old woman with history of , otherwise no history of abdominal surgeries presents with 5 days of right lower quadrant pain. It was fairly sudden onset 5 days ago, she was not doing anything specific at the time. Pain is sharp. She saw my partner on that day, CBCs, CMP were normal. She had small blood in the urine. test was negative. CT of the abdomen and pelvis showed a right corpus luteum cyst. She continued to have pain throughout the week but it got worse again today. It is associate with nausea but no vomiting. Constipation but noting poor appetite. No vaginal discharge. She has a Mirena IUD in place that is about 2 months old. PD PAST MEDICAL HISTORY - Past Medical History Cardiovascular: None Respiratory: None Neuro: None Endocrine/Autoimmune: None GI: None SETTER MACHINE: None : None HEENT: None Psych: ADD/ADHD Musculoskeletal: None Derm: None - Past Surgical History Past Surgical History: Yes /SETTER MACHINE: section - Present Medications Home Medications: Ambulatory Orders Medication Instructions Recorded Confirmed Dextroamphetamine/Amphetamine 10 mg ORAL BID 11/23/20 10/22/22 [Adderall 10 mg Tablet] HYDROcod/ACETAM 5/325 [[place] 5/325] 1 ea PO Q6H PRN #112 tablet 10/17/22 10/22/22 Naproxen 250 mg PO TID PRN 7 Days #15 tablet 10/17/22 10/22/22 Ondansetron Odt [Zofran] 4 mg TL Q6H PRN #10 tablet 10/17/22 10/22/22 Buspirone HCl 15 mg PO BID 10/22/22 10/22/22 Escitalopram Oxalate 20 mg PO DAILY 10/22/22 10/22/22 Oxycodone HCl/Acetaminophen 1 - 2 each PO Q6H PRN #14 tablet 10/22/22 [Percocet 5-325 mg Tablet] - Allergies Allergies/Adverse Reactions: Allergies Allergy/AdvReac Type Severity Reaction Status Date / Time No Known Drug Allergies Allergy Verified 10/22/22 10:56 - Social History Does the pt smoke?: No Smoking Status: Never smoker Does the pt drink ETOH?: Yes Does the pt have substance abuse?: No - Immunizations Immunizations are current?: Yes - POLST Patient has POLST: No PD ED PE NORMAL - Vitals Vital signs reviewed: Yes - General General: Alert and oriented X 3, No acute distress - Cardiac Cardiac: RRR, No murmur - Respiratory Respiratory: No respiratory distress, Clear bilaterally - Abdomen Abdomen: Normal bowel sounds, Soft, Other (Tender in the right lower quadrant without surgical signs) - Derm Derm: No rash - Neuro Neuro: Alert and oriented X 3, Normal speech Results - Vitals Vitals: Vital Signs - 24 hr 10/22/22 10/22/22 10/22/22 10:53 13:07 15:24 Temperature 36.6 C Heart Rate 65 59 L 60 Respiratory 16 16 16 Rate Blood Pressure 136/90 H 123/74 128/92 H O2 Saturation 99 96 96 Oxygen O2 Source Room air - Labs Labs: Laboratory Tests 10/22/22 10/22/22 10/22/22 11:15 11:15 11:15 WBC 6.3 RBC 4.87 Hgb 15.5 Hct 45.8 MCV 94.0 MCH 31.8 H MCHC 33.8 RDW 13.0 Plt Count 386 MPV 8.2 Neut # (Auto) 3.0 Lymph # (Auto) 2.6 Cecil # (Auto) 0.3 Eos # (Auto) 0.3 Baso # (Auto) 0.1 Absolute Nucleated RBC 0.00 Nucleated RBC % 0.0 Sodium 138 Potassium 4.2 Chloride 103 Carbon Dioxide 27 Anion Gap 8.0 BUN 13 Creatinine 0.5 Estimated GFR (MDRD) 148 Glucose 96 Calcium 9.0 Total Bilirubin 0.5 AST 29 ALT 39 Alkaline Phosphatase 56 Total Protein 8.1 Albumin 4.7 Globulin 3.4 Albumin/Globulin Ratio 1.4 Lipase 26 Urine Color YELLOW Urine Clarity CLEAR Urine pH 7.0 Ur Specific Girard 1.010 Urine Protein NEGATIVE Urine Glucose (UA) NEGATIVE Urine Ketones NEGATIVE Urine Occult Blood SMALL H Urine Nitrite NEGATIVE Urine Bilirubin NEGATIVE Urine Urobilinogen 0.2 (NORMAL) Ur Leukocyte Esterase TRACE H Urine RBC 0-5 Urine WBC 4-5 Ur Squamous Epith Cells RARE Squamous Urine Bacteria None Seen Ur Microscopic Review INDICATED Urine Culture Comments INDICATED Urine HCG, Qual 10/22/22 11:15 WBC RBC Hgb Hct MCV MCH MCHC RDW Plt Count MPV Neut # (Auto) Lymph # (Auto) Cecil # (Auto) Eos # (Auto) Baso # (Auto) Absolute Nucleated RBC Nucleated RBC % Sodium Potassium Chloride Carbon Dioxide Anion Gap BUN Creatinine Estimated GFR (MDRD) Glucose Calcium Total Bilirubin AST ALT Alkaline Phosphatase Total Protein Albumin Globulin Albumin/Globulin Ratio Lipase Urine Color Urine Clarity Urine pH Ur Specific Girard Urine Protein Urine Glucose (UA) Urine Ketones Urine Occult Blood Urine Nitrite Urine Bilirubin Urine Urobilinogen Ur Leukocyte Esterase Urine RBC Urine WBC Ur Squamous Epith Cells Urine Bacteria Ur Microscopic Review Urine Culture Comments Urine HCG, Qual NEGATIVE PD Medical Decision Making - ED course ED course: 26-year-old woman presents with right lower quadrant pain with previous negative work-up excepting a corpus luteum cyst. Differential diagnosis would include ovarian torsion, occult appendicitis. Other intra-abdominal emergency. CBC reviewed and normal. CMP reviewed and normal. Urinalysis with small blood and trace leukocyte Estrace but no white cells. Her symptoms and this finding is not consistent with UTI. Urine test normal. Ultrasound demonstrating a larger hemorrhagic cyst on the right. Given that previous CT imaging did not definitively identify her appendix this was repeated and her appendix was identified tonight without inflammation. Departure - Departure Disposition: 01 Home, Self Care Clinical Impression: Pelvic pain in female, Ovarian cyst Condition: Good Record reviewed to determine appropriate education?: Yes Instructions: ED Pelvic Pain [facility] Prescriptions: Oxycodone HCl/Acetaminophen [Percocet 5-325 mg Tablet] 1 - 2 each PO Q6H PRN #14 tablet PRN Reason: pain Comments: You were seen today for continued right lower quadrant pain related to a prior found ovarian cyst. We repeated your blood work and again found it to be normal. An ultrasound showed the right ovarian cyst measuring 3.8 x 2.1 x 3.1 cm. There is no evidence of torsion. Because the prior CAT scan did not definitively diagnose or see your appendix. The CT was repeated and today we can see your appendix and it appears normal. I sent your prescription electronically to [facility] in [place]. It is a pain medication that is a little stronger than the hydrocodone. When you go there recommend picking up a laxative such as MiraLAX and taking per package instructions. You should follow-up with your primary care physician over the next few days, and if pain is persistent discuss referral to gynecology for further evaluation and treatment. Return if worse. I am prescribing a short course of narcotic pain medication for you. These are potentially dangerous and addictive medications that should be used carefully. These medications may constipate you. Take an avjb-dfz-gkmmayz stool softener (docusate) twice daily with plenty of water while taking these medications. If you go 24 hours without a bowel movement, take [id number] miralax, per package instructions. Do not drink or drive while taking these medications. If you received narcotic or sedating medications while in the emergency department, do not drive for 24 hours. Store this medication in a safe, secure place and out of reach of children. It is a violation of federal law to give or sell this medication to another pers on or to use in a manner other than prescribed. The ED will not refill narcotic prescriptions, including prescriptions lost or stolen. To dispose of unwanted medications: 1. [facility] at [address] in [place] has a medication drop box. They accept prescription medications (in pill form) Monday through Monday 9:00 a.m. to 5:00 p.m. 2. The [facility] accepts prescription medications (in pill form only) for disposal year round. Call for more information. 3. Contact the [facility] for the next [facility] sponsored prescription drug collection event. , [phone], or [phone]; Note that many narcotic pain relievers also contain Tylenol/acetaminophen. Please ensure that your total dose of acetaminophen from all sources does not exceed 3 g (3000 mg) per day. Discharge Date/Time: 10/22/22 15:26
[2022-10-22 11:47] LABS: ALBUMIN 4.7 g/dL (3.2-5.5); ALBUMIN/GLOBULIN RATIO 1.4 (1.0-2.2); BILIRUBIN,TOTAL 0.5 mg/dL (0.2-1.0); CREATININE 0.5 mg/dL (0.4-1.0); POTASSIUM 4.2 mmol/L (3.5-5.0); TOTAL PROTEIN 8.1 g/dL (6.7-8.2)
--- NOTE | 2022-10-22 13:13 | Ultrasound Report ---
PROCEDURE: Pelvic w/Transvag+Doppler Comp INDICATIONS: R pelvic pain TECHNIQUE: Real-time scanning was performed of the pelvic organs, with image documentation. Additional endovagi nal scanning was necessary due to incomplete visualization of the adnexal and endometrial structures by transabdominal scanning. Doppler interrogation was performed of the ovaries bilaterally. COMPARISON: None. FINDINGS: Uterus: Uterus is anteverted and normal in size at 8.9 x 4.0 x 5.0 cm. The myometrium is homogeneou s. The endometrium measures 5.8 mm in combined thickness. IUD is in appropriate position. Ovaries: The right ovary measures 3.8 x 2.1 x 3.1 cm, with a calculated ovarian volume of 12.8 cc. The left ovary measures 2.8 x 1.7 x 1.8 cm, with a calculated ovarian volume of 4.5 cc. There is a co mplex focus of echogenicity within the right ovary measures 1.9 cm as well as a focus of simple decre ased echogenicity measuring 2 cm. Other: No pathologic free abdominal or pelvic fluid. Doppler flow is identified within the ovaries b ilaterally. IMPRESSION: Simple left and complex right ovarian cyst. Reviewed by: Hansa Maurice MD on 10/22/2022 1:12 PM PDT Approved by: Hansa Maurice MD on 10/22/2022 1:12 PM PDT Station ID: [id number]
[2022-10-22] MEDS ORDERED: iohexoL-300 100 ML VIAL ONE (13:52)
--- NOTE | 2022-10-22 14:47 | CT Report ---
PROCEDURE: ABDOMEN/PELVIS W INDICATIONS: IV only, RLQ pain CONTRAST: 100ml omni 300 TECHNIQUE: After the administration of IV contrast, 5 mm thick sections acquired from the diaphragms to the symp hysis. 5 mm thick coronal and sagittal reformats were acquired. For radiation dose reduction, the f ollowing was used: automated exposure control, adjustment of mA and/or kV according to patient size. COMPARISON: 10/17/2022. Correlation is also made with pelvic ultrasound, 10/22/2022. FINDINGS: Image quality: Excellent. Lung bases and heart: Unremarkable. Liver: Diffuse fatty liver infiltration can be seen. The liver demonstrates normal size and demonstra nara no suspicious lesions. Gallbladder and biliary tree: Within normal limits. Spleen: No splenomegaly. An accessory splenule is incidentally noted along the hilum of the primary spleen. Pancreas: No pancreatic ductal dilation. Adrenals: No adrenal nodule. Kidneys and ureters: No hydronephrosis. No renal cystic lesion which requires follow up. No solid mas s. Bowel and peritoneum: No bowel distension. No pathologic free fluid. The appendix is well-seen and is normal. No right lower quadrant inflammatory changes are seen. Lymph nodes: No central or retroperitoneal adenopathy. Vessels: No infrarenal aortic aneurysm. PELVIS Reproductive organs: The uterus demonstrates an unremarkable appearance. An IUD is seen at the expect ed location. A rim-enhancing right ovarian cyst is again seen, measuring 2 cm. No suspicious adnexal masses are seen. Bladder: Unremarkable. Lymph nodes: Unremarkable. Bones: No aggressive osseous abnormality. Other: No significant ventral or inguinal hernia. IMPRESSION: Normal appendix. No focal right lower quadrant inflammatory changes are seen. A potential hemorrhagic cyst is again seen of the right ovary, unchanged from prior images. Additional findings: Fatty liver infiltration Accessory splenule An IUD is seen at the expected location. Reviewed by: José Luis Ayoub MD on 10/22/2022 1:46 PM EMELINA Approved by: José Luis Ayoub MD on 10/22/2022 1:46 PM EMELINA Station ID: [id number]
[2022-10-22 15:26] VITALS: BP 128/92
[2022-10-22] MEDS ORDERED: iohexoL-300 100 ML VIAL IVP ONE (15:50)
== END 2022-10-22 15:26 | disposition home or self-care (01) ==
LOC: ED 10:48
DX: N83.201 Unspecified ovarian cyst, right side (principal)
CPT/HCPCS: 36415; 74177; 76830; 76856; 80053; 81001; 81025; 83690; 85025; 87086; 93975; 96374; 96375; 96376; 99284; J1170; Q9967; 81003

== ENCOUNTER 2022-10-26 13:50 | Emergency (ER) | payer OTHER ==
--- OUTSIDE RECORDS SUMMARY | 2022-10-26 14:07 | EXTERNAL MEDICAL SUMMARY RPT | Continuity of Care Document ---
:1995 Author Organization [facility] Address [address] [place] [address] Phone Care Team Providers Name Role Phone George Mariscal Unavailable Unavailable Allergies No information. Encounters No information. Functional Status No information. Immunizations No information. Medications date description facility 2022-10-20 00:00 Ondansetron [facility] 2022-10-20 00:00 Naproxen [facility] 2022-08-19 00:00 Escitalopram [facility] 2022-08-12 00:00 Dextroamphetamine-Amphetamine [facility] 2022-08-19 00:00 Dextroamphetamine-Amphetamine [facility] 2022-09-19 00:00 Dextroamphetamine-Amphetamine [facility] 2022-10-20 00:00 Hydrocodone-Acetaminophen [facility] 2022-08-19 00:00 Buspirone [facility] Problems date description facility 2022-08-19 11:33 Encounter for insertion of intrauterine [facility] contraceptive device 2022-08-19 11:33 Presence of (intrauterine) contraceptiv e device [facility] 2022-10-20 10:01 Unspecified abdominal pain [facility] Procedures No information. Results/Labs test date author facility value unit interpret ation Result panel 1 (unknown) (no (unknown) (unknown) (no value) (units (unk nown) date) unknown) (unknown) (no (unknown) (unknown) 07/25/22 (units (unkno wn) date) unknown) (unknown) (no (unknown) (unknown) [address] (units (unknown) date) unknown) (unknown) (no (unknown) (unknown) 4900 (units (unkno wn) date) unknown) (unknown) (no (unknown) (unknown) Accession Number: (units (unknown) date) [id number] unknown) (unknown) (no (unknown) (unknown) Age/Sex: 26 / F (units (unknown) date) Date of Service: unknown) (unknown) (no (unknown) (unknown) ANALISA Dumont (units ( unknown) date) [address] unknown) (unknown) (no (unknown) (unknown) CLINICAL: Nipple (units (unknown) date) discharge, right unknown) breast, not bloody. (unknown) (no (unknown) (unknown) Clinical (units (unkno wn) date) evaluation is unknown) recommended. This was discussed with the patient. (unknown) (no (unknown) (unknown) : 1995 (units (unknown) date) Acct:[id number] unknown) (unknown) (no (unknown) (unknown) Electronically (units (unknown) date) Signed By: Tristan Barth M.D. (unknown) (no (unknown) (unknown) IMPRESSION: (units (un known) date) NEGATIVE unknown) (unknown) (no (unknown) (unknown) [facility] (units (unknown) date) unknown) (unknown) (no [...] (unkno wn) date) Jewel Peck MR#: unknown) [id number] (unknown) (no (unknown) (unknown) Please note, with [...] (units (un known) date) unknown) Result panel 2 (unknown) (no (unknown) (unknown) (no value) (units (unk nown) date) unknown) (unknown) (no (unknown) (unknown) 'Lifetime risk to (units (unknown) date) develop breast unknown) cancer' is 20% or higher. (unknown) (no (unknown) (unknown) (category c / (units ( unknown) date) unknown) (unknown) (no (unknown) (unknown) 07/25/22 (units (unkno wn) date) unknown) (unknown) (no (unknown) (unknown) [address] [place] [address] (units (unknown) date) unknown) (unknown) (no (unknown) [...] (unknown) (unknown) Accession Number: (units (unknown) date) [id number] unknown) (unknown) (no (unknown) (unknown) Age/Sex: 26 / F (units (unknown) date) Date of Service: unknown) (unknown) (no (unknown) (unknown) ANALISA Dumont (units ( unknown) date) [address] unknown) (unknown) (no (unknown) (unknown) Approximately (units [...] (unknown) (unknown) : 1995 (units (unknown) date) Acct:[id number] unknown) (unknown) (no (unknown) (unknown) Electronically (units (unknown) date) Signed By: Tristan unknownColleen Barth M.D. (unknown) (no (unknown) (unknown) IMPRESSION: (units (un known) date) INCOMPLETE: NEEDS unknown) ADDITIONAL IMAGING EVALUATION (unknown) (no (unknown) (unknown) [facility] (units (unknown) date) unknown) (unknown) (no [...] (unkno wn) date) Jewel Peck MR#: unknown) [id number] (unknown) (no (unknown) (unknown) Procedure: MM (units ( unknown) date) diagnostic mammo unknown) BI (unknown) (no (unknown) (unknown) Signed (units (unkno wn) date) unknown) (unknown) (no (unknown) (unknown) [employer] [place] (units (u nknown) date) Cancer Society, unknown) [employer] [place] [employer], and NCCN Guidelines (unknown) [...] however, unknown) ultrasound is recommended. Result panel 3 (unknown) (no (unknown) (unknown) (no value) (units [...] own) date) unknown) (unknown) (no (unknown) (unknown) [place], [place] (units ( unknown) date) [address] unknown) (unknown) (no (unknown) (unknown) Anaphylaxis (units [...] (unknown) (unknown) : 1995 (units (unknown) date) Acct:[id number] unknown) (unknown) (no (unknown) (unknown) Delivery by [...] (unknown) (unknown) Patient: (units (unkno wn) date) LivJewel MR#: unknown) [id number] (unknown) (no (unknown) (unknown) Reason For Visit [...] unknown) effort is made to edit content, rip machine operator errors (unknown) (no (unknown) (unknown) special eddie (units ( unknown) date) needs: No unknown) (unknown) (no (unknown) (unknown) substance use (units ( unknown) date) type: does not unknown) use Result panel 4 (unknown) (no (unknown) (unknown) [...] own) date) unknown) (unknown) (no (unknown) (unknown) [place], [place] (units ( unknown) date) [address] unknown) (unknown) (no (unknown) (unknown) Anaphylaxis (units [...] (unknown) (unknown) : 1995 (units (unknown) date) Acct:[id number] unknown) (unknown) (no (unknown) (unknown) Delivery by [...] (unkno wn) date) Jewel Peck MR#: unknown) [id number] (unknown) (no (unknown) (unknown) Pulse 74 (units [...] unknown) effort is made to edit content, rip machine operator errors (unknown) (no (unknown) (unknown) special eddie (units ( unknown) date) needs: No unknown) (unknown) (no (unknown) (unknown) substance use (units ( unknown) date) type: does not unknown) use Result panel 5 (unknown) (no (unknown) (unknown) [...] own) date) unknown) (unknown) (no (unknown) (unknown) [place], [place] (units ( unknown) date) [address] unknown) (unknown) (no (unknown) (unknown) Anaphylaxis (units [...] nknown) date) Insertion: unknown) Insertion of IUD- [id number] (unknown) (no (unknown) (unknown) Breast cancer (units [...] (unknown) (unknown) : 1995 (units (unknown) date) Acct:[id number] unknown) (unknown) (no (unknown) (unknown) Delivery by (units (un known) date) section unknown) (05/18/20) (unknown) (no (unknown) (unknown) Depression (units (unk [...] MARTINEZ 08/19/22 1135 (unknown) (no (unknown) (unknown) Exam [...] (unkno wn) date) Jewel Peck MR#: unknown) [id number] (unknown) (no (unknown) (unknown) Plan (units (unkno [...] curettage (-2016) unknown) (unknown) (no (unknown) (unknown) She has [...] unknown) effort is made to edit content, rip machine operator errors (unknown) (no (unknown) (unknown) special eddie (units ( unknown) date) needs: No unknown) (unknown) (no (unknown) (unknown) substance use (units ( unknown) date) type: does not unknown) use Result panel 6 (unknown) (no (unknown) (unknown) (no value) (units [...] own) date) unknown) (unknown) (no (unknown) (unknown) [place], [place] (units ( unknown) date) [address] unknown) (unknown) (no (unknown) (unknown) Anaphylaxis (units (un known) date) unknown) (unknown) (no (unknown) (unknown) Anesthesia (units (unk nown) date) unknown) (unknown) (no (unknown) (unknown) Anxiety (units (unkno wn) date) unknown) (unknown) (no (unknown) (unknown) Attending Dr: (units ( unknown) date) Barbara El unknown) PRODUCT FINISHER (unknown) (no (unknown) (unknown) BMI 37.0 (units [...] (unknown) (unknown) : 1995 (units (unknown) date) Acct:[id number] unknown) (unknown) (no (unknown) (unknown) Delivery by (units (un known) date) section unknown) (-05/18/20) (unknown) (no (unknown) (unknown) Depression (units (unk nown) date) unknown) (unknown) (no (unknown) (unknown) Dept at (units (unkno wn) date) . unknown) (unknown) (no (unknown) (unknown) Details: (units (unkno wn) date) unknown) (unknown) (no (unknown) (unknown) Documented By: (units (unknown) date) Barbara El unknown) [facility] 10/20/22 0858 (unknown) (no (unknown) (unknown) Draft [...] (unkno wn) date) Jewel Peck MR#: unknown) [id number] (unknown) (no (unknown) (unknown) Position Sitting (units [...] unknown) effort is made to edit content, rip machine operator errors (unknown) (no (unknown) (unknown) special eddie (units ( unknown) date) needs: No unknown) (unknown) (no (unknown) (unknown) substance use (units ( unknown) date) type: does not unknown) use (unknown) (no (unknown) (unknown) unremarkable and (units (unknown) date) CT scan did not unknown) visualize the appendix but did not show (unknown) (no (unknown) (unknown) was prescribed (units (unknown) date) Naproxen, unknown) Marmora-codone 325, and Ondansetron. Patient is still Result panel 7 (unknown) (no (unknown) (unknown) [...] own) date) unknown) (unknown) (no (unknown) (unknown) [place], [place] (units ( unknown) date) [address] unknown) (unknown) (no (unknown) (unknown) Anaphylaxis (units (un known) date) unknown) (unknown) (no (unknown) (unknown) Anesthesia (units (unk nown) date) unknown) (unknown) (no (unknown) (unknown) Anxiety (units (unkno wn) date) unknown) (unknown) (no (unknown) (unknown) Assessment + (units (u nknown) date) Plan unknown) (unknown) (no (unknown) (unknown) Attending Dr: (units ( unknown) date) Barbara El unknown) PRODUCT FINISHER (unknown) (no (unknown) (unknown) BMI 37.0 (units [...] (unknown) (unknown) : 1995 (units (unknown) date) Acct:[id number] unknown) (unknown) (no (unknown) (unknown) Delivery by (units (un known) date) section unknown) (-05/18/20) (unknown) (no (unknown) (unknown) Depression (units (unk nown) date) unknown) (unknown) (no (unknown) (unknown) Dept at (units (unkno wn) date) . unknown) (unknown) (no (unknown) (unknown) Details: (units (unkno wn) date) unknown) (unknown) (no (unknown) (unknown) Documented By: (units (unknown) date) Barbara El unknown) [facility] 10/20/22 0858 (unknown) (no (unknown) (unknown) Draft [...] (unknown) (unknown) Patient: (units (unkno wn) date) LivJewel MR#: unknown) [id number] (unknown) (no (unknown) (unknown) Position Sitting (units [...] unknown) effort is made to edit content, rip machine operator errors (unknown) (no (unknown) (unknown) special eddie [...] was prescribed (units (unknown) date) Naproxen, unknown) Marmora-codone 325, and Ondansetron. Patient is still Result panel 8 (unknown) (no (unknown) (unknown) [...] own) date) unknown) (unknown) (no (unknown) (unknown) [place], [place] (units ( unknown) date) [address] unknown) (unknown) (no (unknown) (unknown) Anaphylaxis (units (un known) date) unknown) (unknown) (no (unknown) (unknown) Anesthesia (units (unk nown) date) unknown) (unknown) (no (unknown) (unknown) Anxiety (units (unkno wn) date) unknown) (unknown) (no (unknown) (unknown) Assessment + (units (u nknown) date) Plan unknown) (unknown) (no (unknown) (unknown) Attending Dr: (units ( unknown) date) Barbara El unknown) PRODUCT FINISHER (unknown) (no (unknown) (unknown) BMI 37.0 (units [...] (unknown) (unknown) : 1995 (units (unknown) date) Acct:[id number] unknown) (unknown) (no (unknown) (unknown) Delivery by (units (un known) date) section unknown) (-05/18/20) (unknown) (no (unknown) (unknown) Depression (units (unk nown) date) unknown) (unknown) (no (unknown) (unknown) Dept at (units (unkno wn) date) . unknown) (unknown) (no (unknown) (unknown) Details: (units (unkno wn) date) unknown) (unknown) (no (unknown) (unknown) Documented By: (units (unknown) date) Barbara El unknown) [facility] 10/20/22 0858 (unknown) (no (unknown) (unknown) Draft [...] (unkno wn) date) Jewel Peck MR#: unknown) [id number] (unknown) (no (unknown) (unknown) Position Sitting (units [...] date) ER follow up, unknown) appendix, *Dr. Mariscla pt (unknown) (no (unknown) (unknown) Vitals (units [...] unknown) effort is made to edit content, rip machine operator errors (unknown) (no (unknown) (unknown) special eddie [...] was prescribed (units (unknown) date) Naproxen, unknown) Marmora-codone 325, and Ondansetron. Patient is still Result panel 9 (unknown) (no (unknown) (unknown) [...] own) date) unknown) (unknown) (no (unknown) (unknown) [place], [place] (units ( unknown) date) [address] unknown) (unknown) (no (unknown) (unknown) Anaphylaxis (units (un known) date) unknown) (unknown) (no (unknown) (unknown) Anesthesia (units (unk nown) date) unknown) (unknown) (no (unknown) (unknown) Anxiety (units (unkno wn) date) unknown) (unknown) (no (unknown) (unknown) Assessment + (units (u nknown) date) Plan unknown) (unknown) (no (unknown) (unknown) Attending Dr: (units ( unknown) date) Barbara El unknown) PRODUCT FINISHER (unknown) (no (unknown) (unknown) Attitude: (units (unkn [...] (unknown) (unknown) : 1995 (units (unknown) date) Acct:[id number] unknown) (unknown) (no (unknown) (unknown) Delivery by (units (un known) date) section unknown) (-05/18/20) (unknown) (no (unknown) (unknown) Depression (units (unk nown) date) unknown) (unknown) (no (unknown) (unknown) Dept at (units (unkno wn) date) . unknown) (unknown) (no (unknown) (unknown) Details: (units (unkno wn) date) unknown) (unknown) (no (unknown) (unknown) Documented By: (units (unknown) date) Barbara El unknown) [facility] 10/20/22 0858 (unknown) (no (unknown) (unknown) Draft [...] (unkno wn) date) Jewel Peck MR#: unknown) [id number] (unknown) (no (unknown) (unknown) Position Sitting (units [...] unknown) effort is made to edit content, rip machine operator errors (unknown) (no (unknown) (unknown) special eddie [...] was prescribed (units (unknown) date) Naproxen, unknown) Marmora-codone 325, and Ondansetron. Patient is still Result panel 10 (unknown) (no (unknown) (unknown) [...] own) date) unknown) (unknown) (no (unknown) (unknown) [place], [place] (units ( unknown) date) [address] unknown) (unknown) (no (unknown) (unknown) Anaphylaxis (units (un known) date) unknown) (unknown) (no (unknown) (unknown) Anesthesia (units (unk nown) date) unknown) (unknown) (no (unknown) (unknown) Anxiety (units (unkno wn) date) unknown) (unknown) (no (unknown) (unknown) Assessment + (units (u nknown) date) Plan unknown) (unknown) (no (unknown) (unknown) Attending Dr: (units ( unknown) date) Barbara El unknown) PRODUCT FINISHER (unknown) (no (unknown) (unknown) Attitude: (units (unkn [...] (unknown) (unknown) : 1995 (units (unknown) date) Acct:[id number] unknown) (unknown) (no (unknown) (unknown) Delivery by (units (un known) date) section unknown) (-05/18/20) (unknown) (no (unknown) (unknown) Depression (units (unk nown) date) unknown) (unknown) (no (unknown) (unknown) Dept at (units (unkno wn) date) . unknown) (unknown) (no (unknown) (unknown) Details: (units (unkno wn) date) unknown) (unknown) (no (unknown) (unknown) Documented By: (units (unknown) date) Barbara El unknown) [facility] 10/20/22 0858 (unknown) (no (unknown) (unknown) Draft [...] (unkno wn) date) Jewel Peck MR#: unknown) [id number] (unknown) (no (unknown) (unknown) Position Sitting (units [...] unknown) effort is made to edit content, rip machine operator errors (unknown) (no (unknown) (unknown) special eddie [...] was prescribed (units (unknown) date) Naproxen, unknown) Marmora-codone 325, and Ondansetron. Patient is still Result panel 11 (unknown) (no (unknown) (unknown) [...] own) date) unknown) (unknown) (no (unknown) (unknown) [place], [place] (units ( unknown) date) [address] unknown) (unknown) (no (unknown) (unknown) Anaphylaxis (units (un known) date) unknown) (unknown) (no (unknown) (unknown) Anesthesia (units (unk nown) date) unknown) (unknown) (no (unknown) (unknown) Anxiety (units (unkno wn) date) unknown) (unknown) (no (unknown) (unknown) Assessment + (units (u nknown) date) Plan unknown) (unknown) (no (unknown) (unknown) Attending Dr: (units ( unknown) date) Barbara El unknown) PRODUCT FINISHER (unknown) (no (unknown) (unknown) Attitude: (units (unkn [...] (unknown) (unknown) : 1995 (units (unknown) date) Acct:[id number] unknown) (unknown) (no (unknown) (unknown) Delivery by (units (un known) date) section unknown) (-05/18/20) (unknown) (no (unknown) (unknown) Depression (units (unk nown) date) unknown) (unknown) (no (unknown) (unknown) Dept at (units (unkno wn) date) . unknown) (unknown) (no (unknown) (unknown) Details: (units (unkno wn) date) unknown) (unknown) (no (unknown) (unknown) Documented By: (units (unknown) date) Barbara El unknown) [facility] 10/20/22 0858 (unknown) (no (unknown) (unknown) Draft [...] (unkno wn) date) Jewel Peck MR#: unknown) [id number] (unknown) (no (unknown) (unknown) Position Sitting (units (unknown) date) unknown) (unknown) (no (unknown) (unknown) Preg Expiration (units (unknown) date) 2023-06-25 Last unknown) Edit by Juliana Baron CMA on 10/20/22 09: (unknown) (no (unknown) (unknown) Preg Lot # (units (unk nown) date) [id number] Last unknown) Edit by Juliana Baron CMA [...] (unknown) (unknown) Urine Specific (units (unknown) date) Crawford 1.015 unknown) Last Edit by Juliana Baron CMA on 10/20/22 (unknown) (no (unknown) (unknown) Urine (units (unkno wn) date) Urobilinogen - unknown) 0.2 mg/dL Last Edit by Juliana Baron CMA on (unknown) (no (unknown) (unknown) Urine pH 6.0 [...] unknown) effort is made to edit content, rip machine operator errors (unknown) (no (unknown) (unknown) special eddie [...] was prescribed (units (unknown) date) Naproxen, unknown) Marmora-codone 325, and Ondansetron. Patient is still Result panel 12 (unknown) (no date) (unknown) (unknown) 13.4 % [...] (unknown) 92.4 fl (unkn own) Result panel 13 (unknown) (no date) (unknown) (unknown) > 60 [...] (unknown) 8.7 mg/dl (unkn own) Result panel 14 (unknown) (no (unknown) (unknown) [...] own) date) unknown) (unknown) (no (unknown) (unknown) [place], [place] (units ( unknown) date) [address] unknown) (unknown) (no (unknown) (unknown) Anaphylaxis (units (un known) date) unknown) (unknown) (no (unknown) (unknown) Anesthesia (units (unk nown) date) unknown) (unknown) (no (unknown) (unknown) Anxiety (units (unkno wn) date) unknown) (unknown) (no (unknown) (unknown) Assessment + (units (u nknown) date) Plan unknown) (unknown) (no (unknown) (unknown) Attending Dr: (units ( unknown) date) Barbara El unknown) PRODUCT FINISHER (unknown) (no (unknown) (unknown) Attitude: (units (unkn [...] (unknown) (unknown) : 1995 (units (unknown) date) Acct:[id number] unknown) (unknown) (no (unknown) (unknown) Delivery by (units (un known) date) section unknown) (-05/18/20) (unknown) (no (unknown) (unknown) Depression (units (unk nown) date) unknown) (unknown) (no (unknown) (unknown) Dept at (units (unkno wn) date) . unknown) (unknown) (no (unknown) (unknown) Details: (units (unkno wn) date) unknown) (unknown) (no (unknown) (unknown) Documented By: (units (unknown) date) Barbara El unknown) [facility] 10/20/22 0858 (unknown) (no (unknown) (unknown) Draft (units (unkno wn) date) unknown) (unknown) (no (unknown) (unknown) Effort + (units (unkno wn) date) Inspection: unknown) normal respiratory effort, able to speak in complete (unknown) (no (unknown) (unknown) Exam (units (unkno wn) date) unknown) (unknown) (no (unknown) (unknown) Family History (units (unknown) date) (Updated 03/15/21 unknown) @ 14:04 by Chirstiana Magallon) (unknown) (no (unknown) (unknown) Family Practice [...] (unkno wn) date) Jewel Peck MR#: unknown) [id number] (unknown) (no (unknown) (unknown) Position Sitting (units (unknown) date) unknown) (unknown) (no (unknown) (unknown) Preg Expiration (units (unknown) date) 2023-06-25 Last unknown) Edit by Juliana Baron CMA on 10/20/22 09: (unknown) (no (unknown) (unknown) Preg Lot # (units (unk nown) date) [id number] Last unknown) Edit by Juliana Baron CMA [...] (unknown) (unknown) Urine Specific (units (unknown) date) Crawford 1.015 unknown) Last Edit by Juliana Baron CMA on 10/20/22 (unknown) (no (unknown) (unknown) Urine (units (unkno wn) date) Urobilinogen - unknown) 0.2 mg/dL Last Edit by Juliana Baron CMA on 10/20/ (unknown) (no (unknown) (unknown) Urine pH 6.0 (units (u nknown) date) Last Edit by Juliana horacio Baron CMA on 10/20/22 09:51 (unknown) (no [...] unknown) effort is made to edit content, rip machine operator errors (unknown) (no (unknown) (unknown) special eddie [...] was prescribed (units (unknown) date) Naproxen, unknown) Marmora-codone 325, and Ondansetron. Patient is still Result [...] own) date) unknown) (unknown) (no (unknown) (unknown) [place], [place] (units ( unknown) date) [address] unknown) (unknown) (no (unknown) (unknown) Anaphylaxis (units (un known) date) unknown) (unknown) (no (unknown) (unknown) Anesthesia (units (unk nown) date) unknown) (unknown) (no (unknown) (unknown) Anxiety (units (unkno wn) date) unknown) (unknown) (no (unknown) (unknown) Assessment + (units (u nknown) date) Plan unknown) (unknown) (no (unknown) (unknown) Attending Dr: (units ( unknown) date) Barbara El unknown) PRODUCT FINISHER (unknown) (no (unknown) (unknown) Attitude: (units (unkn [...] (unknown) (unknown) : 1995 (units (unknown) date) Acct:[id number] unknown) (unknown) (no (unknown) (unknown) Delivery by (units (un known) date) section unknown) (-05/18/20) (unknown) (no (unknown) (unknown) Depression (units (unk nown) date) unknown) (unknown) (no (unknown) (unknown) Dept at (units (unkno wn) date) . unknown) (unknown) (no (unknown) (unknown) Details: (units (unkno wn) date) unknown) (unknown) (no (unknown) (unknown) Documented By: (units (unknown) date) Barbara El unknown) [facility] 10/20/22 0858 (unknown) (no (unknown) (unknown) Draft [...] (unkno wn) date) Jewel Peck MR#: unknown) [id number] (unknown) (no (unknown) (unknown) Plan (units (unkno wn) date) unknown) (unknown) (no (unknown) (unknown) Position Sitting (units (unknown) date) unknown) (unknown) (no (unknown) (unknown) Preg Expiration (units (unknown) date) 2023-06-25 Last unknown) Edit by Juliana Baron CMA on 10/20/22 09: (unknown) (no (unknown) (unknown) Preg Lot # (units (unk nown) date) [id number] Last unknown) Edit by Juliana Braon CMA on 10/20/22 09:52 (unknown) (no (unknown) [...] (unknown) (unknown) Urine Specific (units (unknown) date) Crawford 1.015 unknown) Last Edit by Juliana Baron CMA on 10/20/22 (unknown) (no (unknown) (unknown) Urine (units (unkno wn) date) Urobilinogen - unknown) 0.2 mg/dL Last Edit by Juliana Baron CMA on 10/20/ (unknown) (no (unknown) (unknown) Urine pH 6.0 (units (u nknown) date) Last Edit by Juliana millan) Wanda Baron CMA on 10/20/22 09:51 (unknown) (no [...] unknown) effort is made to edit content, rip machine operator errors (unknown) (no (unknown) (unknown) special eddie (units ( unknown) date) needs: No unknown) (unknown) (no (unknown) (unknown) substance use (units ( unknown) date) type: does not unknown) use (unknown) (no (unknown) (unknown) the ED (units (unkno wn) date) 10/17/2022. unknown) Suspicious for appendicitis however according to the chart (unknown) (no (unknown) (unknown) was prescribed (units (unknown) date) Naproxen, unknown) Marmora-codone 325, and Ondansetron. Patient is still (unknown) (no (unknown) (unknown) with viral (units (unk nown) date) gastroenteritis. unknown) They provided pain medication and return Result panel 16 (unknown) (no (unknown) (unknown) [...] own) date) unknown) (unknown) (no (unknown) (unknown) 10/26/22 1155 (units ( unknown) date) unknown) (unknown) (no (unknown) (unknown) 09:03 [...] own) date) unknown) (unknown) (no (unknown) (unknown) [place], [place] (units ( unknown) date) [address] unknown) (unknown) (no (unknown) (unknown) Anaphylaxis (units (un known) date) unknown) (unknown) (no (unknown) (unknown) Anesthesia (units (unk nown) date) unknown) (unknown) (no (unknown) (unknown) Anxiety (units (unkno wn) date) unknown) (unknown) (no (unknown) (unknown) Assessment + (units (u nknown) date) Plan unknown) (unknown) (no (unknown) (unknown) Attending Dr: (units ( unknown) date) Barbara El unknown) PRODUCT FINISHER (unknown) (no (unknown) (unknown) Attitude: (units (unkn [...] wn) date) unknown) (unknown) (no (unknown) (unknown) Continue (units (unkno wn) date) drinking plenty unknown) of fluids and get plenty of rest, eat a bland diet. (unknown) (no (unknown) (unknown) Crohn's disease (units (unknown) date) (-2019) unknown) (unknown) (no (unknown) (unknown) : 1995 (units (unknown) date) Acct:[id number] unknown) (unknown) (no (unknown) (unknown) Delivery by (units (un known) date) section unknown) (-05/18/20) (unknown) (no (unknown) (unknown) Depression (units (unk nown) date) unknown) (unknown) (no (unknown) (unknown) Details: (units (unkno wn) date) unknown) (unknown) (no (unknown) (unknown) Documented By: (units (unknown) date) Barbara El unknown) [facility] 10/20/22 0858 (unknown) (no (unknown) (unknown) Effort + (units [...] date) Associates unknown) (unknown) (no (unknown) (unknown) Follow up with (units (unknown) date) Dr. Mariscal. unknown) (unknown) (no (unknown) (unknown) GI bleeding [...] (unkno wn) date) Jewel Peck MR#: unknown) [id number] (unknown) (no (unknown) (unknown) Plan (units (unkno wn) date) unknown) (unknown) (no (unknown) (unknown) Position Sitting (units (unknown) date) unknown) (unknown) (no (unknown) (unknown) Preg Expiration (units (unknown) date) 2023-06-25 Last unknown) Edit by Juliana Baron CMA on 10/20/22 09: (unknown) (no (unknown) (unknown) Preg Lot # (units (unk nown) date) [id number] Last unknown) Edit by Juliana Baron CMA [...] RLQ pain, (units (unkn own) date) persisting. Was unknown) evaluated in the ED 10/17/2022. Suspicious for (unknown) (no (unknown) (unknown) RLQ tender with [...] wn) date) unknown) (unknown) (no (unknown) (unknown) Return to clinic (units (unknown) date) or go to the ED unknown) immediately for any changing, worsening (unknown) (no (unknown) (unknown) Rhythm: regular (units (unknown) date) rhythm unknown) (unknown) (no (unknown) (unknown) Right lower (units (un known) date) quadrant pain unknown) (unknown) (no (unknown) (unknown) S/P dilation and (units (unknown) date) curettage (-2015) unknown) (unknown) (no (unknown) (unknown) Signed By: (units (unk nown) date) <Electronically unknown) signed by Barbara El> (unknown) (no (unknown) (unknown) Signed (units (unkno wn) date) unknown) (unknown) (no (unknown) (unknown) Smoking Status: (units (unknown) date) Former smoker unknown) (unknown) (no (unknown) (unknown) Social History (units (unknown) date) unknown) (unknown) (no (unknown) (unknown) Surgical History (units (unknown) date) (Updated 03/15/21 unknown) @ 13:52 by Crhistiana Magallon) (unknown) (no (unknown) (unknown) Temp 97.5 [...] (unknown) (unknown) Urine Specific (units (unknown) date) [place] 1.015 unknown) Last Edit by Juliana Baron [...] 2 wks ) (unknown) (no (unknown) (unknown) appendicitis (units (u nknown) date) however according unknown) to the chart note, labs were unremarkable and CT (unknown) (no (unknown) (unknown) areas. Diagnosed (units (unknown) date) with viral unknown) gastroenteritis. Symptoms have improved. Agrees to (unknown) (no (unknown) (unknown) at (units (unkno wn) date) . unknown) (unknown) (no (unknown) (unknown) buspirone 15 mg [...] work, abdominal US. (unknown) (no (unknown) (unknown) due to the (units (unk nown) date) inherent unknown) limitations of voice recognition software. Please read the (unknown) (no (unknown) (unknown) education level: (units [...] pain. unknown) (unknown) (no (unknown) (unknown) have lab work, (units ( unknown) date) abdominal US. unknown) Will call with results and further recommendations. (unknown) (no (unknown) (unknown) household (units (unkn [...] unmarried,living unknown) together (unknown) (no (unknown) (unknown) microscopic (units (un known) date) hematuria unknown) (unknown) (no (unknown) (unknown) much. Has (units (unkn own) date) nausea, vomiting unknown) occasionally, diarrhea improved. Denies fever, (unknown) (no (unknown) (unknown) naproxen 250 mg (units (unknown) date) tablet 250 mg PO unknown) BID PRN 10/20/22 [History Confirmed 10/20/22] (unknown) (no (unknown) (unknown) not show (units (unkno wn) date) inflammation to unknown) surrounding areas. She was discharged home diagnoses (unknown) (no (unknown) (unknown) note carefully (units (unknown) date) and recognize, unknown) using context, where these substitutions have (unknown) (no (unknown) (unknown) note, labs were (units (unknown) date) unremarkable and unknown) CT scan did not visualize the appendix but did (unknown) (no (unknown) (unknown) occupational (units (u nknown) date) status: unknown) unemployed (unknown) (no (unknown) (unknown) occurred. If (units (u nknown) date) there are any unknown) questions, please contact the Medical Records Dept (unknown) (no (unknown) (unknown) ondansetron 4 mg (units (unknown) date) disintegrating unknown) tablet 4 mg PO Q8H 10/20/22 [History Confirmed (unknown) (no (unknown) (unknown) pets and (units (unkno wn) date) animals: Yes unknown) (Dog) (unknown) (no (unknown) (unknown) precautions. (units (u nknown) date) Pain medications unknown) are helping but symptoms have not really improved (unknown) (no (unknown) (unknown) scan did not (units (un known) date) visualize the unknown) appendix but did not show inflammation to surrounding (unknown) (no (unknown) (unknown) second hand (units (un known) date) exposure: No unknown) (unknown) (no (unknown) (unknown) sentences, no (units ( unknown) date) audible wheezes unknown) and no use of accessory muscles (unknown) (no (unknown) (unknown) software. (units (unkno wn) date) Although every unknown) effort is made to edit content, rip machine operator errors ma (unknown) (no (unknown) (unknown) special eddie (units ( unknown) date) needs: No unknown) (unknown) (no (unknown) (unknown) substance use (units ( unknown) date) type: does not unknown) use (unknown) (no (unknown) (unknown) symptoms or you (units (unknown) date) have any further unknown) concerns. (unknown) (no (unknown) (unknown) the ED (units (unkno wn) date) 10/17/2022. unknown) Suspicious for appendicitis however according to the chart (unknown) (no (unknown) (unknown) was prescribed (units (unknown) date) Naproxen, unknown) Marmora-codone 325, and Ondansetron. Patient is still (unknown) (no (unknown) (unknown) with viral (units (unk nown) date) gastroenteritis. unknown) They provided pain medication and return (unknown) (no (unknown) (unknown) y occur. (units (unkno wn) date) Occasional unknown) wrong-word or 'sound-alike' substitutions may have occurred Social History date description facility 2022-08-19 00:00 Ex-smoker (finding) [facility] 2022-10-20 00:00 Ex-smoker (finding) [facility] Vital Signs date measurement value units [...]
[2022-10-26] MEDS ORDERED: SODIUM CHLORIDE 0.9% 1,000 ML IV STA (14:27)
--- NOTE | 2022-10-26 14:30 | ED Physician Documentation ---
History of Present Illness - Stated complaint Stated Complaint: DIZZINESS,HIGH BLOOD - Chief complaint Chief Complaint: General - History obtained from History obtained from: Patient, Family - History of Present Illness Timing: Today - Additonal information Additional information: 26-year-old female reports that today she began to feel lightheaded and dizzy and she went to check her blood pressure and found the diastolic was over 120. She continues to feel lightheaded and dizzy and comes to the emergency department for evaluation. She states that she has recently been into the emergency department evaluated for abdominal pelvic pain found to have a ovarian cyst she has finished taking her pain medications and has marked reduction in her pain. She stopped taking these yesterday did not have any specific symptoms yesterday. She did have some constipation she was treated for that with some MiraLAX and that resolved yesterday as well. She does admit to 5 hard seltzer drinks last night and she does not normally drink alcohol. Review of Systems Constitutional: denies: Fever Eyes: denies: Decreased vision Ears: denies: Ear pain Nose: denies: Congestion Throat: denies: Sore throat Cardiac: denies: Chest pain / pressure, Palpitations Respiratory: denies: Dyspnea, Cough GI: reports: Constipation (narcotic induced resolved). denies: Abdominal Pain, Nausea, Vomiting, Diarrhea : denies: Dysuria Skin: denies: Rash Musculoskeletal: denies: Neck pain, Back pain, Extremity pain Neurologic: denies: Generalized weakness, Focal weakness, Numbness, Confused, Altered mental status, Head injury, LOC PD PAST MEDICAL HISTORY - Past Medical History Cardiovascular: None Respiratory: None Neuro: None Endocrine/Autoimmune: None GI: None EYELETTER: None : None HEENT: None Psych: ADD/ADHD Musculoskeletal: None Derm: None - Past Surgical History Past Surgical History: Yes /EYELETTER: section - Present Medications Home Medications: Ambulatory Orders Medication Instructions Recorded Confirmed Dextroamphetamine/Amphetamine 10 mg ORAL BID 11/23/20 10/22/22 [Adderall 10 mg Tablet] HYDROcod/ACETAM 5/325 [[place] 5/325] 1 ea PO Q6H PRN #112 tablet 10/17/22 10/22/22 Naproxen 250 mg PO TID PRN 7 Days #15 tablet 10/17/22 10/22/22 Ondansetron Odt [Zofran] 4 mg TL Q6H PRN #10 tablet 10/17/22 10/22/22 Buspirone HCl 15 mg PO BID 10/22/22 10/22/22 Escitalopram Oxalate 20 mg PO DAILY 10/22/22 10/22/22 Oxycodone HCl/Acetaminophen 1 - 2 each PO Q6H PRN #14 tablet 10/22/22 [Percocet 5-325 mg Tablet] - Allergies Allergies/Adverse Reactions: Allergies Allergy/AdvReac Type Severity Reaction Status Date / Time No Known Drug Allergies Allergy Verified 10/26/22 14:02 - Social History Does the pt smoke?: No Smoking Status: Never smoker Does the pt drink ETOH?: Yes Does the pt have substance abuse?: No - Immunizations Immunizations are current?: Yes - POLST Patient has POLST: No PD ED PE NORMAL - Vitals Vital signs reviewed: Yes (hypertensive ) - General General: Alert and oriented X 3, No acute distress, Well developed/nourished - HEENT HEENT: Atraumatic, PERRL, EOMI, Ears normal, Other (no nystagmus) - Neck Neck: Supple, no meningeal sign, No bony TTP - Cardiac Cardiac: RRR, No murmur - Respiratory Respiratory: No respiratory distress, Clear bilaterally - Abdomen Abdomen: Normal bowel sounds, Soft, Non tender, Non distended, No organomegaly - Back Back: No CVA TTP, No spinal TTP - Derm Derm: Normal color, Warm and dry, No rash - Extremities Extremities: No deformity, No edema - Neuro Neuro: Alert and oriented X 3, site acquisition manager 2-12 intact, No motor deficit, No sensory deficit, Normal speech Eye Opening: Spontaneous Motor: Obeys Commands Verbal: Oriented GCS Score: 15 - Psych Psych: Normal mood, Normal affect Results - Vitals Vitals: Vital Signs - 24 hr 10/26/22 13:59 Temperature 35.8 C L Heart Rate 68 Respiratory 16 Rate Blood Pressure 159/113 H O2 Saturation 100 Oxygen O2 Source Room air - Labs Labs: Laboratory Tests 10/26/22 10/26/22 10/26/22 14:49 15:00 15:00 WBC 7.7 RBC 4.83 Hgb 15.0 Hct 45.4 MCV 94.0 MCH 31.1 H MCHC 33.0 RDW 12.7 Plt Count 448 MPV 8.2 Neut # (Auto) 4.2 Lymph # (Auto) 2.7 [place] # (Auto) 0.5 Eos # (Auto) 0.3 Baso # (Auto) 0.0 Absolute Nucleated RBC 0.00 Nucleated RBC % 0.0 Sodium 137 Potassium 3.8 Chloride 102 Carbon Dioxide 25 Anion Gap 10.0 BUN 12 Creatinine 0.5 Estimated GFR (MDRD) 148 Glucose 93 Calcium 9.3 Total Bilirubin 0.4 AST 31 ALT 55 Alkaline Phosphatase 73 Troponin I High Sens Total Protein 7.9 Albumin 4.6 Globulin 3.3 Albumin/Globulin Ratio 1.4 Lipase 31 Urine Color YELLOW Urine Clarity CLEAR Urine pH 6.0 Ur Specific [place] 1.015 Urine Protein NEGATIVE Urine Glucose (UA) NEGATIVE Urine Ketones NEGATIVE Urine Occult Blood SMALL H Urine Nitrite NEGATIVE Urine Bilirubin NEGATIVE Urine Urobilinogen 0.2 (NORMAL) Ur Leukocyte Esterase NEGATIVE Urine RBC 0-5 Urine WBC 0-3 Ur Squamous Epith Cells RARE Squamous Urine Bacteria None Seen Ur Microscopic Review INDICATED Urine Culture Comments NOT INDICATED Urine HCG, Qual NEGATIVE Ethyl Alcohol < 5.0 10/26/22 15:00 WBC RBC Hgb Hct MCV MCH MCHC RDW Plt Count MPV Neut # (Auto) Lymph # (Auto) [place] # (Auto) Eos # (Auto) Baso # (Auto) Absolute Nucleated RBC Nucleated RBC % Sodium Potassium Chloride Carbon Dioxide Anion Gap BUN Creatinine Estimated GFR (MDRD) Glucose Calcium Total Bilirubin AST ALT Alkaline Phosphatase Troponin I High Sens < 2.3 L Total Protein Albumin Globulin Albumin/Globulin Ratio Lipase Urine Color Urine Clarity Urine pH Ur Specific [place] Urine Protein Urine Glucose (UA) Urine Ketones Urine Occult Blood Urine Nitrite Urine Bilirubin Urine Urobilinogen Ur Leukocyte Esterase Urine RBC Urine WBC Ur Squamous Epith Cells Urine Bacteria Ur Microscopic Review Urine Culture Comments Urine HCG, Qual Ethyl Alcohol Procedures - IVC sono (time) 1425 Bedside IVC sono: IVC measures (cm) (0.9), IVC collapsed c insp (cm) (complete), Dehydration (est <2 liter deficit) PD Medical Decision Making - ED course Complexity details: reviewed old records, reviewed results, re-evaluated patient, considered differential, d/w patient, d/w family Reviewed Lab Results: We evaluated a complete blood count showing a normal hemoglobin, hematocrit, white blood cell count and platelets. We evaluated chemistries showing normal electrolytes, normal kidney and liver function. The urinalysis was unremarkable, the patient is not and has no alcohol on board. ED course: 26-year-old female with lightheadedness and dizziness after discontinuation of narcotic pain reliever and consumption of 5 ounces of alcohol is found to be dehydrated on interrogation the inferior vena cava with POCUS and she is administered intravenous saline. Departure - Departure Disposition: Home, Self Care Clinical Impression: Dehydration Instructions: ED Dehydration Follow-Up: MEL Mcdonnell [Provider Group] Comments: , today it looks like you are dizzy and lightheaded from dehydration. This is likely due to the alcohol you drink last night and are not used to. We have given you intravenous fluid and we expect your symptoms to be improved.
[2022-10-26 14:59] LABS: BILIRUBIN,URINE NEGATIVE (NEGATIVE); GLUCOSE, URINE (UA) NEGATIVE (NEGATIVE); KETONES,URINE (UA) NEGATIVE (NEGATIVE); LEUKOCYTE ESTERASE, URINE NEGATIVE (NEGATIVE); NITRITE,URINE NEGATIVE (NEGATIVE); OCCULT BLOOD,URINE SMALL (NEGATIVE); PROTEIN,URINE NEGATIVE (NEGATIVE); UROBILINOGEN,URINE 0.2 (NORMAL) E.U./dL (NORMAL)
[2022-10-26 15:06] LABS: CLARITY,URINE CLEAR (CLEAR); HCG UR QUAL NEGATIVE
[2022-10-26 15:08] LABS: BASOPHILS % (AUTO) 0.5 %; EOSINOPHILS # (AUTO) 0.3 10^3/uL (0.0-0.7); EOSINOPHILS % (AUTO) 3.4 %; HCT - HEMATOCRIT 45.4 % (37.0-47.0); LYMPHOCYTES # (AUTO) 2.7 10^3/uL (1.5-3.5); LYMPHOCYTES % (AUTO) 34.8 %; MEAN CORPUSCULAR HEMOGLOBIN 31.1 pg (27.0-31.0); MEAN PLATELET VOLUME 8.2 fL (7.9-10.8); MONOCYTES # (AUTO) 0.5 10^3/uL (0.0-1.0); MONOCYTES % (AUTO) 6.1 %; NEUTROPHILS # (AUTO) 4.2 10^3/uL (1.5-6.6); NEUTROPHILS % (AUTO) 54.8 %; PLT - PLATELET COUNT 448 10^3/uL (130-450); RED BLOOD COUNT 4.83 10^6/uL (4.20-5.40); RED CELL DISTRIBUTION WIDTH 12.7 % (12.0-15.0); WHITE BLOOD COUNT 7.7 x10^3/uL (4.8-10.8)
[2022-10-26 15:15] LABS: RBC,URINE 0-5 /HPF (0-5); WBC,URINE 0-3 /HPF (0-5)
[2022-10-26 15:16] LABS: BACTERIA,URINE None Seen /HPF (None Seen); SQUAMOUS EPITHELIAL CELL,UR RARE Squamous (<= Few)
[2022-10-26 15:22] LABS: ALBUMIN 4.6 g/dL (3.2-5.5); ALBUMIN/GLOBULIN RATIO 1.4 (1.0-2.2); ALKALINE PHOSPHATASE 73 IU/L (42-121); ALT ALANINE AMINOTRANSFERASE 55 IU/L (10-60); AST ASPARTATE AMINOTRANSFERASE 31 IU/L (10-42); BILIRUBIN,TOTAL 0.4 mg/dL (0.2-1.0); BUN - BLOOD UREA NITROGEN 12 mg/dL (6-20); CALCIUM 9.3 mg/dL (8.5-10.3); CARBON DIOXIDE - CO2 25 mmol/L (21-32); CHLORIDE 102 mmol/L (101-111); CREATININE 0.5 mg/dL (0.4-1.0); ETOH - ETHANOL < 5.0 mg/dL; GFR - MDRD 148 (>89); GLUCOSE 93 mg/dL (70-100); LIPASE 31 U/L (22-51); POTASSIUM 3.8 mmol/L (3.5-5.0); SODIUM 137 mmol/L (135-145); TOTAL PROTEIN 7.9 g/dL (6.7-8.2)
[2022-10-26 16:15] VITALS: BP 144/109
== END 2022-10-26 16:16 | disposition home or self-care (01) ==
LOC: ED 13:50
DX: E86.0 Dehydration (principal)
CPT/HCPCS: 36415; 80053; 80320; 81001; 81003; 81025; 83690; 84484; 85025; 87086; 99283; 99284

== ENCOUNTER 2023-09-11 17:01 | Emergency (ER) | payer OTHER ==
[2023-09-11 17:49] LABS: BASOPHILS % (AUTO) 0.5 %; EOSINOPHILS # (AUTO) 0.1 10^3/uL (0.0-0.7); EOSINOPHILS % (AUTO) 1.4 %; HCT - HEMATOCRIT 40.9 % (37.0-47.0); HGB - HEMOGLOBIN 13.7 g/dL (12.0-16.0); LYMPHOCYTES # (AUTO) 2.2 10^3/uL (1.5-3.5); LYMPHOCYTES % (AUTO) 27.7 %; MEAN CORPUSCULAR HEMOGLOBIN 30.7 pg (27.0-31.0); MEAN CORPUSCULAR HGB CONC 33.5 g/dL (32.0-36.0); MEAN CORPUSCULAR VOLUME 91.7 fL (81.0-99.0); MEAN PLATELET VOLUME 8.4 fL (7.9-10.8); MONOCYTES # (AUTO) 0.4 10^3/uL (0.0-1.0); MONOCYTES % (AUTO) 5.6 %; NEUTROPHILS % (AUTO) 64.7 %; PLT - PLATELET COUNT 372 10^3/uL (130-450); RED BLOOD COUNT 4.46 10^6/uL (4.20-5.40); RED CELL DISTRIBUTION WIDTH 11.9 % (12.0-15.0); WHITE BLOOD COUNT 7.8 x10^3/uL (4.8-10.8)
[2023-09-11 18:04] LABS: ALBUMIN 4.7 g/dL (3.2-5.5); ALBUMIN/GLOBULIN RATIO 1.8 (1.0-2.2); ALKALINE PHOSPHATASE 64 IU/L (42-121); ALT ALANINE AMINOTRANSFERASE 22 IU/L (10-60); AST ASPARTATE AMINOTRANSFERASE 18 IU/L (10-42); BILIRUBIN,TOTAL 0.6 mg/dL (0.2-1.0); BUN - BLOOD UREA NITROGEN 8 mg/dL (6-20); CALCIUM 9.6 mg/dL (8.5-10.3); CARBON DIOXIDE - CO2 28 mmol/L (21-32); CHLORIDE 96 mmol/L (101-111); CREATININE 0.6 mg/dL (0.6-1.3); GFR - MDRD 119 (>89); GLUCOSE 95 mg/dL (74-104); POTASSIUM 3.3 mmol/L (3.5-4.5); SODIUM 129 mmol/L (135-145); TOTAL PROTEIN 7.3 g/dL (6.4-8.9)
[2023-09-11 18:10] LABS: HCG,QUALITATIVE BLOOD NEGATIVE
--- NOTE | 2023-09-11 20:44 | Ultrasound Report ---
PROCEDURE: Pelvic w/Transvaginal INDICATIONS: vaginal bleeding TECHNIQUE: Real-time scanning was performed of the pelvic organs, with image documentation. Additional endovagi nal scanning was necessary due to incomplete visualization of the adnexal and endometrial structures by transabdominal scanning. COMPARISON: None. FINDINGS: Uterus: Uterus is anteverted and normal in size at 8.3 x 4.1 x 4.9 cm. The myometrium is homogeneou s. The endometrium measures 7 mm in combined thickness. Normal uterine vascularity. No suspicious m ass. Ovaries: The right ovary measures 2.7 x 1.4 x 2.6 cm, with a calculated ovarian volume of 5.3 cc. T he left ovary measures 2.7 x 2.5 x 3.3 cm, with a calculated ovarian volume of 11.6 cc. The ovaries have a normal sonographic appearance. Less than 12 follicles are present in each ovary. There is a d ominant follicle measuring 2.1 cm and the left ovary. Normal vascular flow in each ovary. No adnexal masses are seen. No cystic lesions measuring greater than 3 cm. Other: No pathologic free abdominal or pelvic fluid. IMPRESSION: Normal pelvic ultrasound. Preliminary results given by the destination sign repairer to the ordering provider immediately following the study . Reviewed by: Jackie Moody MD on 09/11/2023 8:42 PM PDT Approved by: Jackie Moody MD on 09/11/2023 8:42 PM PDT Station ID: [id number]
--- NOTE | 2023-09-11 21:11 | ED Physician Documentation ---
PD HPI FEMALE - Stated complaint Stated Complaint: - Chief complaint Chief Complaint: Abd Pain - History obtained from History obtained from: Patient - Additional information Additional information: The patient comes to the emergency department chief complaint of vaginal bleeding for 6 days since having her IUD taken out. She had a hormone-eluting IUD and she states that she had a period not too long before having the IUD removed. However, she was told that she would probably have another. After removal of the IUD. She states the first day she has had cramping but that has largely resolved. She denies any abdominal pain. No fevers or chills. No nausea or vomiting. She states she passed a large clot today and she was just concerned. She has been tired but she also has a toddler and states it could just be that. No other complaints at this time. PD PAST MEDICAL HISTORY - Past Medical History Cardiovascular: None Respiratory: None Neuro: None Endocrine/Autoimmune: None GI: None CHARGING OPERATOR: None : None HEENT: None Psych: ADD/ADHD Musculoskeletal: None Derm: None - Past Surgical History Past Surgical History: Yes /CHARGING OPERATOR: section - Present Medications Home Medications: Ambulatory Orders Medication Instructions Recorded Confirmed Escitalopram Oxalate 20 mg PO DAILY 10/22/22 09/11/23 Dextroamphetamine/Amphetamine 30 mg PO BID 09/11/23 09/11/23 [Adderall 30 mg Tablet] Losartan Potassium [Cozaar] 100 mg PO DAILY 09/11/23 09/11/23 Metoprolol Succinate [Toprol Xl] 25 mg PO DAILY 09/11/23 09/11/23 - Allergies Allergies/Adverse Reactions: Allergies Allergy/AdvReac Type Severity Reaction Status Date / Time No Known Drug Allergies Allergy Verified 09/11/23 17:11 - Social History Does the pt smoke?: No Smoking Status: Never smoker Does the pt drink ETOH?: Yes Does the pt have substance abuse?: No - Immunizations Immunizations are current?: Yes - POLST Patient has POLST: No PD ED PE NORMAL - Vitals Vital signs reviewed: Yes - General General: Alert and oriented X 3, No acute distress, Well developed/nourished - HEENT HEENT: Atraumatic, EOMI, Moist mucous membranes - Neck Neck: Supple, no meningeal sign - Cardiac Cardiac: RRR, No murmur - Respiratory Respiratory: No respiratory distress, Clear bilaterally - Abdomen Abdomen: Soft, Non tender, Non distended - Derm Derm: Normal color, Warm and dry, No rash - Extremities Extremities: No deformity, No edema - Neuro Neuro: Alert and oriented X 3 - Psych Psych: Normal mood, Normal affect Results - Vitals Vitals: Vital Signs - 24 hr 09/11/23 09/11/23 17:07 19:11 Temperature 36.6 C Heart Rate 71 Respiratory 16 16 Rate Blood Pressure 128/78 O2 Saturation 100 Oxygen O2 Source Room air - Labs Labs: Laboratory Tests 09/11/23 09/11/23 17:46 17:46 WBC 7.8 RBC 4.46 Hgb 13.7 Hct 40.9 MCV 91.7 MCH 30.7 MCHC 33.5 RDW 11.9 L Plt Count 372 MPV 8.4 Neut # (Auto) 5.0 Lymph # (Auto) 2.2 [place] # (Auto) 0.4 Eos # (Auto) 0.1 Baso # (Auto) 0.0 Absolute Nucleated RBC 0.00 Nucleated RBC % 0.0 Sodium 129 L Potassium 3.3 L Chloride 96 L Carbon Dioxide 28 Anion Gap 5.0 L BUN 8 Creatinine 0.6 Estimated GFR (MDRD) 119 Glucose 95 Calcium 9.6 Total Bilirubin 0.6 AST 18 ALT 22 Alkaline Phosphatase 64 Total Protein 7.3 Albumin 4.7 Globulin 2.6 Albumin/Globulin Ratio 1.8 Serum HCG, Qual NEGATIVE - Rads (name of study) Ultrasound pelvis Relevant Findings:: Final report received, See rad report (Flow to both ovaries. 2 cm cyst left ovary. Otherwise normal pelvic ultrasound.) PD Medical Decision Making - ED course Complexity details: reviewed results, re-evaluated patient, considered differential, d/w patient ED course: Patient was worked up with laboratory studies including CBC and ER abdominal panel, as well as an ultrasound of the pelvis. Patient's workup was unremarkable. She was counseled to call her tin can feeder office tomorrow morning and see if they have any other recommendations but at this point, I have advised her that most likely her bleeding will stop on her own, once her body adjusts to the withdrawal of hormones. She has expressed agreement with the plan. We have discussed the usual indications for return. Departure - Departure Disposition: 01 Home, Self Care Clinical Impression: Dysfunctional uterine bleeding Condition: Stable Instructions: ED Bleed Irregular Vaginal Comments: Most likely, your body is just reacting to the change with the IUD having been removed and the hormones no longer being in your system from the IUD. Is not unusual to have some rebound bleeding after withdrawal of an IUD, especially hormone eluting one, And it is most likely that this will stop on its own. However, you should call your tin can feeder office in the morning to see if they want to intervene in any other way or if they will provide reassurance that this is to be expected. If you begin to feel severely lightheaded or faint, please return to the emergency department.
[2023-09-11 21:26] VITALS: BP 125/79; O2SAT 98
== END 2023-09-11 21:22 | disposition home or self-care (01) ==
LOC: ED 17:01
DX: N93.8 Other specified abnormal uterine and vaginal bleeding (principal)
CPT/HCPCS: 36415; 80053; 84703; 85025; 99283; 99284